=== PATIENT | male | born 1960 | race Caucasian/White ===

== ENCOUNTER 2017-10-17 09:41 | Emergency (ER) | payer MEDICARE, MEDICAID ==
--- NOTE | 2017-10-17 10:16 | EDM.PDOC ---
ED HPI GENERAL MEDICAL PROBLEM - General Chief Complaint: ENT Problem Stated Complaint: SORE THROAT Time Seen by Provider: 10/17/17 10:10 Source of Information: Reports: Patient History Limitations: Reports: No Limitations - History of Present Illness INITIAL COMMENTS - FREE TEXT/NARRATIVE: HISTORY AND PHYSICAL: History of present illness: [Patient comes to the emergency room complaining of earache sore throat runny nose and headache. His symptoms have been present for the past 24 hours. Nasal discharge is clear. He doesn't think he's had a fever. No abdominal pain nausea or vomiting. No constipation or diarrhea. Has had a mild cough with a lot of sputum. No chest pain shortness of breath or difficulty breathing. No dizziness or lightheaded that is new or different for him.] Review of systems: As per history of present illness and below otherwise all systems reviewed and negative. Past medical history: As per history of present illness and as reviewed below otherwise noncontributory. Surgical history: As per history of present illness and as reviewed below otherwise noncontributory. Social history: No reported history of drug or alcohol abuse. Family history: As per history of present illness and as reviewed below otherwise noncontributory. Physical exam: HEENT: Atraumatic, normocephalic. TMs are pearly martinez bilaterally. Oral mucous membranes are pink and moist. Mildly erythematous. No exudate. Neck supple no lymphadenopathy. There is a patent clear discharge present. Lungs: Clear to auscultation, breath sounds equal bilaterally. No wheezing crackles or rales. Heart: S1S2, regular rate and rhythm. Abdomen: Soft, nondistended, nontender. Pelvis: Stable nontender. Genitourinary: Deferred. Rectal: Deferred. Extremities: Atraumatic. Neurovascular unremarkable. Neuro: Awake, alert, oriented. Motor and sensory unremarkable throughout. Exam nonfocal. Developmental delay. Diagnostics: [Influenza swab, strep] Impression: [Viral illness] Plan: [Discussed with patient that symptoms are consistent with a viral illness and that influenza and strep swabs are negative. Recommend push fluids, plenty of rest. Follow-up with PCP. Patient in agreement with today's plan.] Definitive disposition and diagnosis as appropriate pending reevaluation and review of above. - Related Data Allergies Allergy/AdvReac Type Severity Reaction Status Date / Time methylphenidate HCl Allergy Anxiety Verified 10/17/17 10:03 [From Ritalin] thioridazine HCl Allergy Anxiety Verified 10/17/17 10:03 [From Mellaril] Home Meds: Home Meds Benztropine [Cogentin] 2 mg PO BID 02/25/14 [History] Divalproex Sodium [Depakote] 500 mg PO DAILY 02/25/14 [History] Sertraline [Zoloft] 100 mg PO BEDTIME 02/25/14 [History] Ziprasidone HCl [Geodon] 60 mg PO BEDTIME 02/25/14 [History] Ziprasidone HCl [Geodon] 160 mg PO BEDTIME 02/25/14 [History] Divalproex Sodium [Depakote ER] 1,500 mg PO BEDTIME 10/28/14 [History] Multivitamin [Multi Vitamin Daily] 1 each PO DAILY 10/28/14 [History] metFORMIN [Glucophage XR] 500 mg PO WITHDINNER 07/07/16 [History] Past Medical History HEENT History: Reports: Impaired Vision Cardiovascular History: Reports: None Respiratory History: Reports: None Genitourinary History: Reports: None Musculoskeletal History: Reports: None Neurological History: Reports: Speech Problems Psychiatric History: Reports: Anxiety, Bipolar, Schizophrenia Endocrine/Metabolic History: Reports: Diabetes, Type II Hematologic History: Reports: None Immunologic History: Reports: None Oncologic (Cancer) History: Reports: None Dermatologic History: Reports: None - Infectious Disease History Infectious Disease History: Reports: Chicken Pox - Past Surgical History Head Surgeries/Procedures: Reports: None GI Surgical History: Reports: Appendectomy Social & Family History - Family History Family Medical History: Noncontributory - Tobacco Use Smoking Status *Q: Never Smoker Second Hand Smoke Exposure: Yes - Caffeine Use Caffeine Use: Reports: Coffee, Soda - Alcohol Use Days Per Week of Alcohol Use: 0 - Recreational Drug Use Recreational Drug Use: No ED ROS ENT - Review of Systems Review Of Systems: ROS reveals no pertinent complaints other than HPI. ED EXAM, ENT - Physical Exam Exam: See Below Course - Vital Signs Last Recorded V/S: Last Vital Signs Temp 97.7 F 10/17/17 10:06 Pulse 98 10/17/17 10:06 Resp 18 10/17/17 10:06 BP Pulse Ox 94 L 10/17/17 10:06 - Orders/Labs/Meds Orders: Active Orders 24 hr Category Date Time Status CULTURE STREP A CONFIRMATION [RM] Stat Lab 10/17/17 10:15 Results STREP SCRN A RAPID W CULT CONF [RM] Stat Lab 10/17/17 10:15 Results Departure - Departure Time of Disposition: 10:50 Disposition: Home, Self-Care 01 Condition: Good Clinical Impression: Viral illness - Discharge Information Referrals: PCP,Unknown [Primary Care Provider] - David Diop MD [Resident] - Forms: ED Department Discharge Additional Instructions: The following information is given to patients seen in the emergency department who are being discharged to home. This information is to outline your options for follow-up care. We provide all patients seen in our emergency department with a follow-up referral. The need for follow-up, as well as the timing and circumstances, are variable depending upon the specifics of your emergency department visit. If you don't have a primary care physician on staff, we will provide you with a referral. We always advise you to contact your personal physician following an emergency department visit to inform them of the circumstance of the visit and for follow-up with them and/or the need for any referrals to a consulting specialist. The emergency department will also refer you to a specialist when appropriate. This referral assures that you have the opportunity for follow-up care with a specialist. All of these measure are taken in an effort to provide you with optimal care, which includes your follow-up. Under all circumstances we always encourage you to contact your private physician who remains a resource for coordinating your care. When calling for follow-up care, please make the office aware that this follow-up is from your recent emergency room visit. If for any reason you are refused follow-up, please contact the [facility] emergency department at and asked to speak to the emergency department charge nurse. [facility] [address] [place] [id number] Follow-up with her local primary care provider at the clinic listed above in 48- 72 hours. Push fluids, get plenty of rest, Tylenol or ibuprofen as needed for discomfort. Return to ER as needed as discussed - My Orders Last 24 Hours: My Active Orders 10/17/17 10:15 CULTURE STREP A CONFIRMATION [RM] Stat STREP SCRN A RAPID W CULT CONF [] Stat - Assessment/Plan Last 24 Hours: My Active Orders 10/17/17 10:15 CULTURE STREP A CONFIRMATION [RM] Stat STREP SCRN A RAPID W CULT CONF [] Stat
[2017-10-17 11:24] VITALS: BP 124/69
== END 2017-10-17 10:55 | disposition home or self-care (01) ==
LOC: MW.ED 09:41
DX: B34.9 Viral infection, unspecified (principal); E11.9 Type 2 diabetes mellitus without complications; F31.9 Bipolar disorder, unspecified; Z77.22 Contact with and (suspected) exposure to environmental tobacco smoke (acute) (chronic); Z79.899 Other long term (current) drug therapy; Z79.84 Long term (current) use of oral hypoglycemic drugs; Z88.8 Allergy status to other drugs, medicaments and biological substances
CPT/HCPCS: 87081; 87804; 87880; 99283

== ENCOUNTER 2018-11-26 16:19 | Emergency (ER) | payer MEDICAID, MEDICARE ==
--- NOTE | 2018-11-26 16:48 | EDM.PDOC ---
ED HPI GENERAL MEDICAL PROBLEM - General Chief Complaint: Gastrointestinal Problem Stated Complaint: constipated Time Seen by Provider: 11/26/18 16:46 Source of Information: Reports: Patient History Limitations: Reports: No Limitations - History of Present Illness INITIAL COMMENTS - FREE TEXT/NARRATIVE: HISTORY AND PHYSICAL: History of present illness: Patient is a 58-year-old male with history of developmental delay here with complaint of constipation. He states he had a normal bowel movement yesterday but has not been able to go today. He states he used an enema which did not work. He states he has not passed gas today. He has felt a little nauseous but denies fevers, chills, vomiting, diarrhea, abdominal pain or urinary symptoms. After palpating abdomen, patient did have a small bowel movement here. Review of systems: As per history of present illness and below otherwise all systems reviewed and negative. Past medical history: As per history of present illness and as reviewed below otherwise noncontributory. Surgical history: As per history of present illness and as reviewed below otherwise noncontributory. Social history: No reported history of drug or alcohol abuse. Family history: As per history of present illness and as reviewed below otherwise noncontributory. Physical exam: General: Patient sitting comfortably in no acute distress and nontoxic appearing HEENT: Atraumatic, normocephalic, pupils reactive, negative for conjunctival pallor or scleral icterus, mucous membranes moist, throat clear, neck supple, nontender, trachea midline. No meningeal signs. Lungs: Clear to auscultation, breath sounds equal bilaterally, chest nontender. Heart: S1S2, regular, negative for clicks, rubs, or overt murmur. Abdomen: Soft, nondistended, nontender. Negative for masses or hepatosplenomegaly. Negative for costovertebral tenderness. Pelvis: Stable nontender. Genitourinary: Deferred. Rectal: Deferred. Extremities: Atraumatic, negative for cords or calf pain. Neurovascular unremarkable. Neuro: Awake, alert, oriented. Cranial nerves II through XII unremarkable. Cerebellum unremarkable. Motor and sensory unremarkable throughout. Exam nonfocal. Notes: Diagnostics: CBC, CMP, [employer]: Magnesium citrate Prescriptions: Impression: Constipation Plan: 1. Take 1/2 bottle of magnesium citrate when you get home. Take the remaining half tomorrow morning if still no bowel movement. 2. Follow up with primary care provider 3. Return to ED as needed as discussed Definitive disposition and diagnosis as appropriate pending reevaluation and review of above. - Related Data Allergies Allergy/AdvReac Type Severity Reaction Status Date / Time methylphenidate HCl Allergy Anxiety Verified 11/26/18 16:52 [From Ritalin] thioridazine HCl Allergy Anxiety Verified 11/26/18 16:52 [From Mellaril] Home Meds: Home Meds Benztropine [Cogentin] 2 mg PO BID 02/25/14 [History] Divalproex Sodium [Depakote] 500 mg PO DAILY 02/25/14 [History] Sertraline [Zoloft] 100 mg PO BEDTIME 02/25/14 [History] Ziprasidone HCl [Geodon] 60 mg PO BEDTIME 02/25/14 [History] Ziprasidone HCl [Geodon] 160 mg PO BEDTIME 02/25/14 [History] Divalproex Sodium [Depakote ER] 1,500 mg PO BEDTIME 10/28/14 [History] Multivitamin [Multi Vitamin Daily] 1 each PO DAILY 10/28/14 [History] metFORMIN [Glucophage XR] 500 mg PO WITHDINNER 07/07/16 [History] Past Medical History HEENT History: Reports: Impaired Vision Cardiovascular History: Reports: None Respiratory History: Reports: None Genitourinary History: Reports: None Musculoskeletal History: Reports: None Neurological History: Reports: Speech Problems Psychiatric History: Reports: Anxiety, Bipolar, Schizophrenia Endocrine/Metabolic History: Reports: Diabetes, Type II Hematologic History: Reports: None Immunologic History: Reports: None Oncologic (Cancer) History: Reports: None Dermatologic History: Reports: None - Infectious Disease History Infectious Disease History: Reports: Chicken Pox - Past Surgical History Head Surgeries/Procedures: Reports: None GI Surgical History: Reports: Appendectomy Social & Family History - Family History Family Medical History: Noncontributory - Caffeine Use Caffeine Use: Reports: Soda ED ROS GENERAL - Review of Systems Review Of Systems: ROS reveals no pertinent complaints other than HPI. ED EXAM, GI/ABD - Physical Exam Exam: See Below (see dictation) Course - Vital Signs Last Recorded V/S: Last Vital Signs Temp 97.4 F 11/26/18 16:37 Pulse 104 H 11/26/18 16:37 Resp 17 11/26/18 16:37 BP 127/70 11/26/18 16:37 Pulse Ox 95 11/26/18 16:37 - Orders/Labs/Meds Labs: Laboratory Tests 11/26/18 11/26/18 Range/Units 17:18 17:18 WBC 12.47 H (4.0-11.0) K/uL RBC 4.71 (4.50-5.90) M/uL Hgb 14.0 (13.0-17.0) g/dL Hct 41.1 (38.0-50.0) % MCV 87.3 (80.0-98.0) fL MCH 29.7 (27.0-32.0) pg MCHC 34.1 (31.0-37.0) g/dL RDW Std Deviation 43.4 (28.0-62.0) fl RDW Coeff of Ernie 14 (11.0-15.0) % Plt Count 214 (150-400) K/uL MPV 9.50 (7.40-12.00) fL Neut % (Auto) 75.0 (48.0-80.0) % Lymph % (Auto) 16.0 (16.0-40.0) % Mccreary % (Auto) 7.7 (0.0-15.0) % Eos % (Auto) 1.1 (0.0-7.0) % Baso % (Auto) 0.2 (0.0-1.5) % Neut # (Auto) 9.4 H (1.4-5.7) K/uL Lymph # (Auto) 2.0 (0.6-2.4) K/uL Mccreary # (Auto) 1.0 H (0.0-0.8) K/uL Eos # (Auto) 0.1 (0.0-0.7) K/uL Baso # (Auto) 0.0 (0.0-0.1) K/uL Nucleated RBC % 0.0 /100WBC Nucleated RBCs # 0 K/uL Sodium 139 (136-148) mmol/L Potassium 4.1 (3.5-5.1) mmol/L Chloride 106 (98-107) mmol/L Carbon Dioxide 23.0 (21.0-32.0) mmol/L BUN 15 (7.0-18.0) mg/dL Creatinine 1.1 (0.8-1.3) mg/dL Est Cr Clr Drug Dosing 80.71 mL/min Estimated GFR (MDRD) > 60.0 ml/min Glucose 135 H (74-106) mg/dL Calcium 9.1 (8.5-10.1) mg/dL Total Bilirubin 0.6 (0.2-1.0) mg/dL AST 20 (15-37) IU/L ALT 19 (14-63) IU/L Alkaline Phosphatase 124 H (46-116) U/L Total Protein 7.8 (6.4-8.2) g/dL Albumin 3.8 (3.4-5.0) g/dL Globulin 4.0 (2.6-4.0) g/dL Albumin/Globulin Ratio 0.9 (0.9-1.6) Departure - Departure Time of Disposition: 18:45 Disposition: Home, Self-Care 01 Condition: Good Clinical Impression: Constipation - Discharge Information Referrals: Vikas Castaneda MD [Primary Care Provider] - Forms: ED Department Discharge Additional Instructions: The following information is given to patients seen in the emergency department who are being discharged to home. This information is to outline your options for follow-up care. We provide all patients seen in our emergency department with a follow-up referral. The need for follow-up, as well as the timing and circumstances, are variable depending upon the specifics of your emergency department visit. If you don't have a primary care physician on staff, we will provide you with a referral. We always advise you to contact your personal physician following an emergency department visit to inform them of the circumstance of the visit and for follow-up with them and/or the need for any referrals to a consulting specialist. The emergency department will also refer you to a specialist when appropriate. This referral assures that you have the opportunity for follow-up care with a specialist. All of these measure are taken in an effort to provide you with optimal care, which includes your follow-up. Under all circumstances we always encourage you to contact your private physician who remains a resource for coordinating your care. When calling for follow-up care, please make the office aware that this follow-up is from your recent emergency room visit. If for any reason you are refused follow-up, please contact the [facility] Emergency Department at and asked to speak to the emergency department charge nurse. [address] [address] 1. Take 1/2 bottle of magnesium citrate when you get home. Take the remaining half tomorrow morning if still no bowel movement. 2. Follow up with primary care provider 3. Return to ED as needed as discussed
[2018-11-26 16:55] VITALS: BP 127/70
[2018-11-26 17:44] LABS: CHLORIDE,CL 106 mmol/L (98-107); SODIUM,NA 139 mmol/L (136-148)
--- NOTE | 2018-11-26 18:39 | CR ---
Indication: Constipation. Abdominal pain Technique: A single view of the abdomen. Comparison: None Findings/Impression: : A nonobstructive bowel gas pattern. An ovoid density within the central pelvis could be related to the urinary bladder. Probable pelvic vascular calcifications. Degenerative changes in the lumbar spine. Dictated by Gurwinder Badillo MD @ 11/26/2018 6:38:12 PM Dictated by: Gurwinder Badillo MD @ 11/26/2018 18:38:17 (Electronically Signed)
[2018-11-26] MEDS ORDERED: Magnesium Citrate Solution 296 ML Bottle PO ONE (18:43)
== END 2018-11-26 18:56 | disposition home or self-care (01) ==
LOC: MW.ED 16:19
DX: K59.00 Constipation, unspecified (principal); E11.9 Type 2 diabetes mellitus without complications; F41.9 Anxiety disorder, unspecified; F31.9 Bipolar disorder, unspecified; Z79.899 Other long term (current) drug therapy; Z79.84 Long term (current) use of oral hypoglycemic drugs
CPT/HCPCS: 36415; 74018; 80053; 85025; 99283; A9270

== ENCOUNTER 2018-12-12 10:26 | Observation (INO) | payer MEDICARE ==
[2018-12-12] MEDS ORDERED: Sodium Chloride 0.9% 10 ML Syringe FLUSH PRN (10:28)
[2018-12-12] MEDS ORDERED: Sodium Chloride 0.9% 2.5 ML Syringe FLUSH PRN (10:28)
[2018-12-12] MEDS ORDERED: Sodium Chloride 0.9% 1,000 ML IV ONE (10:29)
--- NOTE | 2018-12-12 10:32 | EDM.PDOC ---
ED HPI GENERAL MEDICAL PROBLEM - General Stated Complaint: HEARTATTACK Time Seen by Provider: 12/12/18 10:28 Source of Information: Reports: Patient History Limitations: Reports: No Limitations - History of Present Illness INITIAL COMMENTS - FREE TEXT/NARRATIVE: HISTORY AND PHYSICAL: History of present illness: Patient is a 58-year-old male who presents to the emergency room via EMS with complaints of midsternal chest pain. He states this started approximately one hour prior to calling EMS, he was at [facility]. He denies any diaphoresis, nausea, vomiting, pain that radiates, shortness of breath or cough. Currently states that the chest pain has resolved. He states he feels "strange" feeling like he feels slightly disoriented. He is alert and oriented. EMS was concerned that there may be some ST elevation on the EKG as he was slightly hypotensive with a blood pressure of 90 over 60s. Patient has a past medical history of type 2 diabetes, anxiety and schizophrenia. Review of systems: As per history of present illness and below otherwise all systems reviewed and negative. Past medical history: As per history of present illness and as reviewed below otherwise noncontributory. Surgical history: As per history of present illness and as reviewed below otherwise noncontributory. Social history: See social history for further information Family history: As per history of present illness and as reviewed below otherwise noncontributory. Physical exam: General: Well-developed and well nourished 58-year-old male. He has a normal variance of HEENT: Atraumatic, normocephalic, pupils equal and reactive bilaterally, negative for conjunctival pallor or scleral icterus, mucous membranes moist, TMs normal bilaterally, throat clear, neck supple, nontender, trachea midline. No drooling or trismus noted. No meningeal signs. No hot potato voice noted. Lungs: Clear to auscultation, breath sounds equal bilaterally, chest nontender. Heart: S1S2, regular rate and rhythm without overt murmur Abdomen: Soft, nondistended, obese, nontender. Negative for masses or hepatosplenomegaly. Negative for costovertebral tenderness. Pelvis: Stable nontender. Genitourinary: Deferred. Rectal: Deferred. Skin: Intact, warm, dry. No lesions or rashes noted. Extremities: Atraumatic, negative for cords or calf pain. Neurovascular unremarkable. Neuro: Awake, alert, oriented. Cranial nerves II through XII unremarkable. Cerebellum unremarkable. Motor and sensory unremarkable throughout. Exam nonfocal. Notes: Patient had 325 mg aspirin prior to arrival. Bedside glucose is 102. Patient's blood pressure upon arrival is 119/76. He is pain-free. Only EKG to compare to is from 2016; may have slight change in lead 2. But no other leads. Dr Horn reviewed this EKG as well. Lab work is unremarkable with a negative troponin. Chest x-ray shows no acute findings. Patient continues to be chest pain-free, although does have a mild headache. Will give Toradol for headache. Dr. El was consulted on this patient and he is agreeable to accepting this patient for observation. Patient will be placed on telemetry. Patient is agreeable. There is a home health care social worker from [facility] at the bedside who is aware of his admission as well. Diagnostics: CBC, CMP, Troponin, EKG, Chest xray Therapeutics: Saline lock, IV fluids, Toradol Impression: Chest Pain Rule Out Plan: Observation admission to Med/Surg Definitive disposition and diagnosis as appropriate pending reevaluation and review of above. - Related Data Allergies Allergy/AdvReac Type Severity Reaction Status Date / Time methylphenidate HCl Allergy Anxiety Verified 12/12/18 10:31 [From Ritalin] thioridazine HCl Allergy Anxiety Verified 12/12/18 10:31 [From Mellaril] Home Meds: Home Meds Benztropine [Cogentin] 2 mg PO BID 02/25/14 [History] Divalproex Sodium [Depakote] 500 mg PO DAILY 02/25/14 [History] Sertraline [Zoloft] 100 mg PO BEDTIME 02/25/14 [History] Ziprasidone HCl [Geodon] 60 mg PO BEDTIME 02/25/14 [History] Ziprasidone HCl [Geodon] 160 mg PO BEDTIME 02/25/14 [History] Divalproex Sodium [Depakote ER] 1,500 mg PO BEDTIME 10/28/14 [History] Multivitamin [Multi Vitamin Daily] 1 each PO DAILY 10/28/14 [History] metFORMIN [Glucophage XR] 500 mg PO WITHDINNER 07/07/16 [History] Past Medical History HEENT History: Reports: Impaired Vision Cardiovascular History: Reports: None Respiratory History: Reports: None Genitourinary History: Reports: None Musculoskeletal History: Reports: None Neurological History: Reports: Speech Problems Psychiatric History: Reports: Anxiety, Bipolar, Schizophrenia Endocrine/Metabolic History: Reports: Diabetes, Type II Hematologic History: Reports: None Immunologic History: Reports: None Oncologic (Cancer) History: Reports: None Dermatologic History: Reports: None - Infectious Disease History Infectious Disease History: Reports: Chicken Pox - Past Surgical History Head Surgeries/Procedures: Reports: None GI Surgical History: Reports: Appendectomy Social & Family History - Family History Family Medical History: Noncontributory - Caffeine Use Caffeine Use: Reports: Soda ED ROS GENERAL - Review of Systems Review Of Systems: ROS reveals no pertinent complaints other than HPI. ED EXAM, GENERAL - Physical Exam Exam: See Below (See dictation) Course - Vital Signs Last Recorded V/S: Last Vital Signs Temp 97.5 F 12/12/18 10:29 Pulse 65 12/12/18 11:24 Resp 18 12/12/18 10:29 BP 106/68 12/12/18 11:24 Pulse Ox 97 12/12/18 11:24 - Orders/Labs/Meds Orders: Active Orders 24 hr Category Date Time Status Admission Status [Patient Status] [ADT] Stat ADT 12/12/18 12:20 Active EKG Documentation Completion [RC] STAT Care 12/12/18 10:28 Active Sodium Chloride 0.9% [Saline Flush] Med 12/12/18 10:28 Active 10 ml FLUSH ASDIRECTED PRN Sodium Chloride 0.9% [Saline Flush] Med 12/12/18 10:28 Active 2.5 ml FLUSH ASDIRECTED PRN Saline Lock Insert [OM.PC] Stat Oth 12/12/18 10:28 Ordered Medication Orders Sodium Chloride (Saline Flush) 10 ml FLUSH ASDIRECTED PRN PRN Reason: Keep Vein Open Last Admin: 12/12/18 10:41 Dose: 10 ml Sodium Chloride (Saline Flush) 2.5 ml FLUSH ASDIRECTED PRN PRN Reason: Keep Vein Open Last Admin: 12/12/18 10:41 Dose: 2.5 ml Labs: Laboratory Tests 12/12/18 12/12/18 Range/Units 10:35 10:35 WBC 8.37 (4.0-11.0) K/uL RBC 4.68 (4.50-5.90) M/uL Hgb 13.8 (13.0-17.0) g/dL Hct 41.2 (38.0-50.0) % MCV 88.0 (80.0-98.0) fL MCH 29.5 (27.0-32.0) pg MCHC 33.5 (31.0-37.0) g/dL RDW Std Deviation 44.0 (28.0-62.0) fl RDW Coeff of Ernie 14 (11.0-15.0) % Plt Count 181 (150-400) K/uL MPV 9.30 (7.40-12.00) fL Neut % (Auto) 45.4 L (48.0-80.0) % Lymph % (Auto) 41.9 H (16.0-40.0) % [place] % (Auto) 9.0 (0.0-15.0) % Eos % (Auto) 3.3 (0.0-7.0) % Baso % (Auto) 0.4 (0.0-1.5) % Neut # (Auto) 3.8 (1.4-5.7) K/uL Lymph # (Auto) 3.5 H (0.6-2.4) K/uL [place] # (Auto) 0.8 (0.0-0.8) K/uL Eos # (Auto) 0.3 (0.0-0.7) K/uL Baso # (Auto) 0.0 (0.0-0.1) K/uL Nucleated RBC % 0.0 /100WBC Nucleated RBCs # 0 K/uL Sodium 141 (136-148) mmol/L Potassium 4.2 (3.5-5.1) mmol/L Chloride 107 (98-107) mmol/L Carbon Dioxide 23.0 (21.0-32.0) mmol/L BUN 8 (7.0-18.0) mg/dL Creatinine 1.0 (0.8-1.3) mg/dL Est Cr Clr Drug Dosing TNP Estimated GFR (MDRD) > 60.0 ml/min Glucose 116 H (74-106) mg/dL Calcium 8.8 (8.5-10.1) mg/dL Total Bilirubin 0.5 (0.2-1.0) mg/dL AST 17 (15-37) IU/L ALT 25 (14-63) IU/L Alkaline Phosphatase 91 (46-116) U/L Troponin I < 0.050 (0.000-0.056) ng/mL Total Protein 6.9 (6.4-8.2) g/dL Albumin 3.3 L (3.4-5.0) g/dL Globulin 3.6 (2.6-4.0) g/dL Albumin/Globulin Ratio 0.9 (0.9-1.6) Meds: Medications Generic Name Dose Route Start Last Admin Trade Name Freq PRN Reason Stop Dose Admin Sodium Chloride 10 ml 12/12/18 10:28 12/12/18 10:41 Saline Flush FLUSH 10 ml ASDIRECTED PRN Administration Keep Vein Open Sodium Chloride 2.5 ml 12/12/18 10:28 12/12/18 10:41 Saline Flush FLUSH 2.5 ml ASDIRECTED PRN Administration Keep Vein Open Discontinued Medications Generic Name Dose Route Start Last Admin Trade Name Freq PRN Reason Stop Dose Admin Sodium Chloride 1,000 mls @ 999 mls/hr 12/12/18 10:29 12/12/18 10:41 Normal Saline IV 12/12/18 11:29 999 mls/hr STAT ONE Administration Departure - Departure Time of Disposition: 11:48 Disposition: Refer to Observation Clinical Impression: Chest pain, rule out acute myocardial infarction - My Orders Last 24 Hours: My Active Orders 12/12/18 10:28 EKG Documentation Completion [RC] STAT Sodium Chloride 0.9% [Saline Flush] 10 ml FLUSH ASDIRECTED PRN Sodium Chloride 0.9% [Saline Flush] 2.5 ml FLUSH ASDIRECTED PRN Saline Lock Insert [OM.PC] Stat 12/12/18 12:20 Admission Status [Patient Status] [ADT] Stat - Assessment/Plan Last 24 Hours: My Active Orders 12/12/18 10:28 EKG Documentation Completion [RC] STAT Sodium Chloride 0.9% [Saline Flush] 10 ml FLUSH ASDIRECTED PRN Sodium Chloride 0.9% [Saline Flush] 2.5 ml FLUSH ASDIRECTED PRN Saline Lock Insert [OM.PC] Stat 12/12/18 12:20 Admission Status [Patient Status] [ADT] Stat
[2018-12-12 11:10] LABS: CHLORIDE,CL 107 mmol/L (98-107); SODIUM,NA 141 mmol/L (136-148)
--- NOTE | 2018-12-12 11:23 | CR ---
EXAMINATION: Portable chest radiograph. HISTORY: Chest pain. Comparison: 03/21/2016. FINDINGS: The trachea is midline. Heart is borderline in size for technique. The cardiomediastinal silhouette is within normal limits. No pulmonary infiltrates, effusions or pneumothorax. Defibrillator pad noted. Osseous structures appear unremarkable. IMPRESSION: No acute cardiopulmonary process.
[2018-12-12] MEDS ORDERED: Ketorolac 30 MG/ML SDV IVPUSH ONE (12:32)
[2018-12-12] MEDS ORDERED: Acetaminophen 325 MG Tab PO PRN (12:58)
--- NOTE | 2018-12-12 13:00 | PCM.HP ---
H&P History of Present Illness - General Date of Service: 12/12/18 Admit Problem/Dx: Admission Diagnosis/Problem Admission Diagnosis/Problem Chest pain, rule out acute myocardial infarction Source of Information: Patient History Limitations: Reports: No Limitations - History of Present Illness Initial Comments - Free Text/Narative: This 58 year old male with pmh of schizoaffective disorder, JACOB with CPAP and DM Type 2 presented to the ED via EMS with complaints of midsternal chest pain. He was at [employer] this morning and started complaining of chest pain. He reports the pain as dull and in the L side of his chest, no radiation. he felt slightly lightheaded, no nausea or diaphoresis. He denies abdominal pain or acid reflux. No other concerns. He denies tobacco abuse or alcohol abuse. He has no history of HTN or CAD. In the ED labwork WNL. Troponin negative. EKG negative for acute ST changes. He was given ASA in the ambulance. By the time he arrived to the ED his pain was gone. PCP Dr Castaneda. - Related Data Allergies/Adverse Reactions: Allergies Allergy/AdvReac Type Severity Reaction Status Date / Time methylphenidate HCl Allergy Anxiety Verified 12/12/18 10:31 [From Ritalin] thioridazine HCl Allergy Anxiety Verified 12/12/18 10:31 [From Mellaril] Home Medications: Home Meds Benztropine [Cogentin] 2 mg PO BID 02/25/14 [History] Divalproex Sodium [Depakote] 500 mg PO DAILY 02/25/14 [History] Sertraline [Zoloft] 100 mg PO BEDTIME 02/25/14 [History] Ziprasidone HCl [Geodon] 60 mg PO BEDTIME 02/25/14 [History] Ziprasidone HCl [Geodon] 160 mg PO BEDTIME 02/25/14 [History] Divalproex Sodium [Depakote ER] 1,500 mg PO BEDTIME 10/28/14 [History] Multivitamin [Multi Vitamin Daily] 1 each PO DAILY 10/28/14 [History] metFORMIN [Glucophage XR] 500 mg PO WITHDINNER 07/07/16 [History] Past Medical History HEENT History: Reports: Impaired Vision Cardiovascular History: Reports: None. Denies: Afib, Blood Clots/VTE/DVT, CAD, High Cholesterol, Hypertension, [place] Respiratory History: Reports: Sleep Apnea (with CPAP) Gastrointestinal History: Reports: None. Denies: GERD Genitourinary History: Reports: None. Denies: Chronic Renal Insuffiency Musculoskeletal History: Reports: None Neurological History: Reports: Speech Problems Psychiatric History: Reports: Anxiety, Bipolar, Schizophrenia Endocrine/Metabolic History: Reports: Diabetes, Type II Hematologic History: Reports: None Immunologic History: Reports: None Oncologic (Cancer) History: Reports: None Dermatologic History: Reports: None - Infectious Disease History Infectious Disease History: Reports: Chicken Pox - Past Surgical History Head Surgeries/Procedures: Reports: None GI Surgical History: Reports: Appendectomy Social & Family History - Family History Family Medical History: Noncontributory - Tobacco Use Smoking Status *Q: Never Smoker Second Hand Smoke Exposure: No - Caffeine Use Caffeine Use: Reports: Soda - Alcohol Use Alcohol Use History: No - Recreational Drug Use Recreational Drug Use: No H&P Review of Systems - Review of Systems: Review Of Systems: See Below General: Reports: No Symptoms. Denies: Fever, Chills, Malaise HEENT: Reports: No Symptoms. Denies: Headaches, Sinus Congestion Pulmonary: Reports: No Symptoms. Denies: Shortness of Breath, Cough, Sputum Cardiovascular: Reports: No Symptoms. Denies: Chest Pain, Palpitations, Lightheadedness Gastrointestinal: Reports: No Symptoms. Denies: Abdominal Pain, Black Stool, Bloody Stool, Nausea, Vomiting Genitourinary: Reports: No Symptoms. Denies: Dysuria Musculoskeletal: Reports: No Symptoms Skin: Reports: Erythema Psychiatric: Reports: No Symptoms Neurological: Reports: No Symptoms Hematologic/Lymphatic: Reports: No Symptoms Immunologic: Reports: No Symptoms Exam - Exam Exam: See Below - Vital Signs Vital Signs: Last Vital Signs Temp 97.5 F 12/12/18 10:29 Pulse 68 12/12/18 12:47 Resp 16 12/12/18 12:47 BP 121/68 12/12/18 12:47 Pulse Ox 97 12/12/18 11:24 Weight: 119.5 kg - Exam General: Alert, Oriented, Cooperative HEENT: Conjunctiva Clear, Mucosa Moist & [place], Posterior Pharynx Clear Lungs: Clear to Auscultation, Normal Respiratory Effort Cardiovascular: Regular Rate, Regular Rhythm GI/Abdominal Exam: Normal Bowel Sounds, Soft, Non-Tender, Other (obese abdomen) Extremities: Normal Inspection, Normal Range of Motion, Non-Tender, No Pedal Edema Neuro Extensive - Mental Status: Alert, Oriented x3 Neuro Extensive - Motor, Sensory, Reflexes: CN II-XII Intact - Patient Data Lab Results Last 24 hrs: Laboratory Results - last 24 hr 12/12/18 12/12/18 Range/Units 10:35 10:35 WBC 8.37 (4.0-11.0) K/uL RBC 4.68 (4.50-5.90) M/uL Hgb 13.8 (13.0-17.0) g/dL Hct 41.2 (38.0-50.0) % MCV 88.0 (80.0-98.0) fL MCH 29.5 (27.0-32.0) pg MCHC 33.5 (31.0-37.0) g/dL RDW Std Deviation 44.0 (28.0-62.0) fl RDW Coeff of Ernie 14 (11.0-15.0) % Plt Count 181 (150-400) K/uL MPV 9.30 (7.40-12.00) fL Neut % (Auto) 45.4 L (48.0-80.0) % Lymph % (Auto) 41.9 H (16.0-40.0) % [place] % (Auto) 9.0 (0.0-15.0) % Eos % (Auto) 3.3 (0.0-7.0) % Baso % (Auto) 0.4 (0.0-1.5) % Neut # (Auto) 3.8 (1.4-5.7) K/uL Lymph # (Auto) 3.5 H (0.6-2.4) K/uL [place] # (Auto) 0.8 (0.0-0.8) K/uL Eos # (Auto) 0.3 (0.0-0.7) K/uL Baso # (Auto) 0.0 (0.0-0.1) K/uL Nucleated RBC % 0.0 /100WBC Nucleated RBCs # 0 K/uL Sodium 141 (136-148) mmol/L Potassium 4.2 (3.5-5.1) mmol/L Chloride 107 (98-107) mmol/L Carbon Dioxide 23.0 (21.0-32.0) mmol/L BUN 8 (7.0-18.0) mg/dL Creatinine 1.0 (0.8-1.3) mg/dL Est Cr Clr Drug Dosing TNP Estimated GFR (MDRD) > 60.0 ml/min Glucose 116 H (74-106) mg/dL Calcium 8.8 (8.5-10.1) mg/dL Total Bilirubin 0.5 (0.2-1.0) mg/dL AST 17 (15-37) IU/L ALT 25 (14-63) IU/L Alkaline Phosphatase 91 (46-116) U/L Troponin I < 0.050 (0.000-0.056) ng/mL Total Protein 6.9 (6.4-8.2) g/dL Albumin 3.3 L (3.4-5.0) g/dL Globulin 3.6 (2.6-4.0) g/dL Albumin/Globulin Ratio 0.9 (0.9-1.6) Result Diagrams: 12/12/18 10:35 12/12/18 10:35 EKG INTERPRETATION EKG Date: 12/12/18 Rhythm: NSR Rate (Beats/Min): 70 P-Wave: Present QRS: Normal ST-T: Normal QT: Normal *Q Meaningful Use (ADM) - VTE Risk Assess *Q Each Risk Factor Represents 1 Point: Obesity ( BMI > 25 kg/m2) Total Score 1 Point Risk Factors: 1 Each Risk Factor Represents 2 Points: Age 60 - 74 Years Total Score 2 Point Risk Factors: 2 Each Risk Factor Represents 3 Points: None Total Score 3 Point Risk Factors: 0 Each Risk Factor Represents 5 Points: None Total Score 5 Point Risk Factors: 0 Venous Thromboembolism Risk Factor Score *Q: 3 - Problem List (1) Chest pain, rule out acute myocardial infarction SNOMED Code(s): 77400289 ICD Code: R07.9 - CHEST PAIN, UNSPECIFIED Status: Acute Current Visit: Yes (2) Schizoaffective disorder SNOMED Code(s): 26943386 ICD Code: F25.9 - SCHIZOAFFECTIVE DISORDER, UNSPECIFIED Status: Acute Current Visit: Yes Qualifiers: Schizoaffective disorder type: depressive Qualified Code(s): F25.1 - Schizoaffective disorder, depressive type (3) DM type 2 (diabetes mellitus, type 2) SNOMED Code(s): 15587859 ICD Code: E11.9 - TYPE 2 DIABETES MELLITUS WITHOUT COMPLICATIONS Status: Acute Current Visit: Yes Qualifiers: Diabetes mellitus termite renewal inspector insulin use: without termite renewal inspector use Diabetes mellitus complication status: without complication Qualified Code(s): E11.9 - Type 2 diabetes mellitus without complications Problem List Initiated/Reviewed/Updated: Yes Orders Last 24hrs: Active Orders 24 hr Category Date Time Status Admission Status [Patient Status] [ADT] Stat ADT 12/12/18 12:20 Active Antiembolic Devices [RC] PER UNIT ROUTINE Care 12/12/18 12:59 Active Intake and Output [RC] QSHIFT Care 12/12/18 12:59 Active Oxygen Therapy [RC] PRN Care 12/12/18 12:59 Active Telemetry Monitoring [Cardiac Monitoring] [RC] . Care 12/12/18 12:57 Active DIRECTED Up ad Lois [RC] ASDIRECTED Care 12/12/18 12:58 Active VTE/DVT Education [RC] PER UNIT ROUTINE Care 12/12/18 12:59 Active Vital Signs [RC] Q4H Care 12/12/18 12:59 Active Heart Healthy Diet [DIET] Diet 12/12/18 Lunch Active GLYCOSYLATED HEMOGLOBIN,HGBA1C [CHEM] Routine Lab 12/12/18 12:57 Ordered LIPID PANEL [CHEM] AM Lab 12/13/18 05:11 Ordered TROPONIN I [CHEM] Q6H Lab 12/12/18 16:30 Ordered TROPONIN I [CHEM] Q6H Lab 12/12/18 22:30 Ordered Acetaminophen [Tylenol] Med 12/12/18 12:58 Ordered 650 mg PO Q4H PRN Sodium Chloride 0.9% [Saline Flush] Med 12/12/18 10:28 Active 10 ml FLUSH ASDIRECTED PRN Sodium Chloride 0.9% [Saline Flush] Med 12/12/18 10:28 Active 2.5 ml FLUSH ASDIRECTED PRN Saline Lock Insert [OM.PC] Stat Oth 12/12/18 10:28 Ordered Sequential Compression Device [OM.PC] Per Unit Routine Oth 12/12/18 12:59 Ordered Resuscitation Status Routine Resus Stat 12/12/18 12:58 Ordered Medication Orders Sodium Chloride (Saline Flush) 10 ml FLUSH ASDIRECTED PRN PRN Reason: Keep Vein Open Last Admin: 12/12/18 10:41 Dose: 10 ml Sodium Chloride (Saline Flush) 2.5 ml FLUSH ASDIRECTED PRN PRN Reason: Keep Vein Open Last Admin: 12/12/18 10:41 Dose: 2.5 ml Assessment/Plan Comment:: This 58 year old male admitted with chest pain 1. Chest pain: No further chest pain. Will monitor on telemetry. Trend troponins. Check lipid panel and A1c. 2. Dm Type 2: Monitor BS before meals. Continue Metformin. 3. Schizoaffective disorder: Continue all home medications. VTE prophylaxis: SCDs Dispo: 1 day.
[2018-12-12 13:43] LABS: HEMOGLOBIN A1C 6.4 % (4.5-6.2)
[2018-12-12] MEDS: Insulin Aspart 100 Units/ML 3 ML Pen SUBCUT SCH (16:43)
[2018-12-12] MEDS ORDERED: metFORMIN 500 MG Tab.ER PO SCH (17:30)
[2018-12-12] MEDS: Benztropine 1 MG Tab PO SCH (20:39)
[2018-12-12] MEDS ORDERED: Sertraline 100 MG Tab PO SCH (21:00)
[2018-12-12] MEDS ORDERED: Divalproex Sodium 500 MG Tab.ER PO SCH (21:00)
[2018-12-12] MEDS ORDERED: Ziprasidone HCl 20 MG Cap PO SCH (21:00)
[2018-12-13] MEDS: Insulin Aspart 100 Units/ML 3 ML Pen SUBCUT SCH (07:35)
[2018-12-13 08:12] VITALS: BP 91/55
[2018-12-13] MEDS ORDERED: Multivitamin Tab PO SCH (09:00)
[2018-12-13] MEDS ORDERED: Divalproex Sodium Delayed-Release 500 MG Tab.CR PO SCH (09:00)
[2018-12-13] MEDS ORDERED: Aspirin 81 MG Tab.Chew PO SCH (09:00)
[2018-12-13] MEDS: Benztropine 1 MG Tab PO SCH (09:12)
--- NOTE | 2018-12-13 10:26 | PCM.DCSUM1 ---
Discharge Summary - Hospital Course Brief History: This 58 year old male with pmh of schizoaffective disorder, JACOB with CPAP and DM Type 2 presented to the ED via EMS with complaints of midsternal chest pain. He was at [facility] this morning and started complaining of chest pain. He reports the pain as dull and in the L side of his chest, no radiation. he felt slightly lightheaded, no nausea or diaphoresis. He denies abdominal pain or acid reflux. No other concerns. He denies tobacco abuse or alcohol abuse. He has no history of HTN or CAD. In the ED labwork WNL. Troponin negative. EKG negative for acute ST changes. He was given ASA in the ambulance. By the time he arrived to the ED his pain was gone. PCP Dr Castaneda. Diagnosis: Stroke: No - Discharge Data Discharge Date: 12/13/18 Discharge Disposition: Home, Self-Care 01 Condition: Stable - Discharge Diagnosis/Problem(s) (1) Chest pain, rule out acute myocardial infarction SNOMED Code(s): 62562750 ICD Code: R07.9 - CHEST PAIN, UNSPECIFIED Status: Acute (2) Schizoaffective disorder SNOMED Code(s): 64733097 ICD Code: F25.9 - SCHIZOAFFECTIVE DISORDER, UNSPECIFIED Status: Acute Qualifiers: Schizoaffective disorder type: depressive Qualified Code(s): F25.1 - Schizoaffective disorder, depressive type (3) DM type 2 (diabetes mellitus, type 2) SNOMED Code(s): 84218910 ICD Code: E11.9 - TYPE 2 DIABETES MELLITUS WITHOUT COMPLICATIONS Status: Acute Qualifiers: Diabetes mellitus medical terminologist insulin use: without medical terminologist use Diabetes mellitus complication status: without complication Qualified Code(s): E11.9 - Type 2 diabetes mellitus without complications - Patient Instructions Diet: Heart Healthy Diet, Diabetic Diet Activity: As Tolerated, No Strenuous Activities Driving: Do Not Drive Notify Provider of: Fever, Increased Pain, Swelling and Redness, Drainage, Nausea and/or Vomiting - Discharge Plan *PRESCRIPTION DRUG MONITORING PROGRAM REVIEWED*: Not Applicable *COPY OF PRESCRIPTION DRUG MONITORING REPORT IN PATIENT DARRICK: Not Applicable Home Medications: Home Meds Benztropine [Cogentin] 2 mg PO BID 02/25/14 [History] Divalproex Sodium [Depakote] 500 mg PO DAILY 02/25/14 [History] Sertraline [Zoloft] 100 mg PO BEDTIME 02/25/14 [History] Ziprasidone HCl [Geodon] 60 mg PO BEDTIME 02/25/14 [History] Ziprasidone HCl [Geodon] 160 mg PO BEDTIME 02/25/14 [History] Divalproex Sodium [Depakote ER] 1,500 mg PO BEDTIME 10/28/14 [History] Multivitamin [Multi-Vitamin Daily] 1 each PO DAILY 10/28/14 [History] metFORMIN [Glucophage XR] 500 mg PO WITHDINNER 07/07/16 [History] Oxygen Therapy Mode: Room Air Patient Handouts: Nonspecific Chest Pain, [id number] Referrals: [facility] [Outside] Vikas Castaneda MD [Primary Care Provider] - 12/23/18 8:30 am - Discharge Summary/Plan Comment DC Time >30 min.: No Discharge Summary/Plan Comment: Discharge Diagnoses: Chest pain-resolved DM TYpe 2 Schizoaffective disorder Hakeem was admitted and monitor on telemetry for chest pain. Troponins were trended and negative. No acute ST changes noted on EKG. He was chest pain free throughout stay. ACS ruled out. VS stable. He will be discharged home today on home medications. He is to follow up with PCP in 1 week and to have stress test. He is to return to ED or clinic if concerns should arise. - General Info Date of Service: 12/13/18 Admission Dx/Problem (Free Text: Admission Diagnosis/Problem Admission Diagnosis/Problem Chest pain, rule out acute myocardial infarction Subjective Update: Denies chest pain. Eager to go home today. No other concerns. Functional Status: Reports: Pain Controlled, Tolerating Diet, Ambulating, Urinating - Review of Systems General: Reports: No Symptoms. Denies: Fever, Weakness HEENT: Reports: No Symptoms. Denies: Sore Throat Pulmonary: Reports: No Symptoms. Denies: Shortness of Breath Cardiovascular: Reports: No Symptoms. Denies: Chest Pain Gastrointestinal: Reports: No Symptoms. Denies: Abdominal Pain, Constipation, Nausea, Vomiting Neurological: Reports: No Symptoms Psychiatric: Reports: No Symptoms - Patient Data Vitals - Most Recent: Last Vital Signs Temp 96.9 F 12/13/18 08:00 Pulse 68 12/13/18 08:00 Resp 16 12/13/18 08:00 BP 91/55 L 12/13/18 08:00 Pulse Ox 95 12/13/18 08:00 Weight - Most Recent: 119.5 kg I&O - Last 24 hours: Intake & Output 12/12/18 12/13/18 12/13/18 22:59 06:59 14:59 Intake Total 500 700 Output Total 700 400 Balance -200 300 Lab Results - Last 24 hrs: Laboratory Results - last 24 hr 12/12/18 12/12/18 12/12/18 Range/Units 10:35 10:35 10:35 WBC 8.37 (4.0-11.0) K/uL RBC 4.68 (4.50-5.90) M/uL Hgb 13.8 (13.0-17.0) g/dL Hct 41.2 (38.0-50.0) % MCV 88.0 (80.0-98.0) fL MCH 29.5 (27.0-32.0) pg MCHC 33.5 (31.0-37.0) g/dL RDW Std Deviation 44.0 (28.0-62.0) fl RDW Coeff of Ernie 14 (11.0-15.0) % Plt Count 181 (150-400) K/uL MPV 9.30 (7.40-12.00) fL Neut % (Auto) 45.4 L (48.0-80.0) % Lymph % (Auto) 41.9 H (16.0-40.0) % Preble % (Auto) 9.0 (0.0-15.0) % Eos % (Auto) 3.3 (0.0-7.0) % Baso % (Auto) 0.4 (0.0-1.5) % Neut # (Auto) 3.8 (1.4-5.7) K/uL Lymph # (Auto) 3.5 H (0.6-2.4) K/uL Preble # (Auto) 0.8 (0.0-0.8) K/uL Eos # (Auto) 0.3 (0.0-0.7) K/uL Baso # (Auto) 0.0 (0.0-0.1) K/uL Nucleated RBC % 0.0 /100WBC Nucleated RBCs # 0 K/uL Sodium 141 (136-148) mmol/L Potassium 4.2 (3.5-5.1) mmol/L Chloride 107 (98-107) mmol/L Carbon Dioxide 23.0 (21.0-32.0) mmol/L BUN 8 (7.0-18.0) mg/dL Creatinine 1.0 (0.8-1.3) mg/dL Est Cr Clr Drug Dosing TNP Estimated GFR (MDRD) > 60.0 ml/min Glucose 116 H (74-106) mg/dL POC Glucose (60-110) mg/dL Hemoglobin A1c 6.4 H (4.5-6.2) % Calcium 8.8 (8.5-10.1) mg/dL Total Bilirubin 0.5 (0.2-1.0) mg/dL AST 17 (15-37) IU/L ALT 25 (14-63) IU/L Alkaline Phosphatase 91 (46-116) U/L Troponin I < 0.050 (0.000-0.056) ng/mL Total Protein 6.9 (6.4-8.2) g/dL Albumin 3.3 L (3.4-5.0) g/dL Globulin 3.6 (2.6-4.0) g/dL Albumin/Globulin Ratio 0.9 (0.9-1.6) Triglycerides (0-200) mg/dL Cholesterol (50-200) mg/dL LDL Cholesterol, Calc (60-180) mg/dL VLDL Cholesterol (5-55) mg/dL HDL Cholesterol (40-60) mg/dL Cholesterol/HDL Ratio (3.3-6.0) 12/12/18 12/12/18 12/12/18 Range/Units 16:33 16:34 22:18 WBC (4.0-11.0) K/uL RBC (4.50-5.90) M/uL Hgb (13.0-17.0) g/dL Hct (38.0-50.0) % MCV (80.0-98.0) fL MCH (27.0-32.0) pg MCHC (31.0-37.0) g/dL RDW Std Deviation (28.0-62.0) fl RDW Coeff of Ernie (11.0-15.0) % Plt Count (150-400) K/uL MPV (7.40-12.00) fL Neut % (Auto) (48.0-80.0) % Lymph % (Auto) (16.0-40.0) % Preble % (Auto) (0.0-15.0) % Eos % (Auto) (0.0-7.0) % Baso % (Auto) (0.0-1.5) % Neut # (Auto) (1.4-5.7) K/uL Lymph # (Auto) (0.6-2.4) K/uL Preble # (Auto) (0.0-0.8) K/uL Eos # (Auto) (0.0-0.7) K/uL Baso # (Auto) (0.0-0.1) K/uL Nucleated RBC % /100WBC Nucleated RBCs # K/uL Sodium (136-148) mmol/L Potassium (3.5-5.1) mmol/L Chloride (98-107) mmol/L Carbon Dioxide (21.0-32.0) mmol/L BUN (7.0-18.0) mg/dL Creatinine (0.8-1.3) mg/dL Est Cr Clr Drug Dosing Estimated GFR (MDRD) ml/min Glucose (74-106) mg/dL POC Glucose 112 H (60-110) mg/dL Hemoglobin A1c (4.5-6.2) % Calcium (8.5-10.1) mg/dL Total Bilirubin (0.2-1.0) mg/dL AST (15-37) IU/L ALT (14-63) IU/L Alkaline Phosphatase (46-116) U/L Troponin I < 0.050 < 0.050 (0.000-0.056) ng/mL Total Protein (6.4-8.2) g/dL Albumin (3.4-5.0) g/dL Globulin (2.6-4.0) g/dL Albumin/Globulin Ratio (0.9-1.6) Triglycerides (0-200) mg/dL Cholesterol (50-200) mg/dL LDL Cholesterol, Calc (60-180) mg/dL VLDL Cholesterol (5-55) mg/dL HDL Cholesterol (40-60) mg/dL Cholesterol/HDL Ratio (3.3-6.0) 12/13/18 12/13/18 Range/Units 04:43 06:35 WBC (4.0-11.0) K/uL RBC (4.50-5.90) M/uL Hgb (13.0-17.0) g/dL Hct (38.0-50.0) % MCV (80.0-98.0) fL MCH (27.0-32.0) pg MCHC (31.0-37.0) g/dL RDW Std Deviation (28.0-62.0) fl RDW Coeff of Ernie (11.0-15.0) % Plt Count (150-400) K/uL MPV (7.40-12.00) fL Neut % (Auto) (48.0-80.0) % Lymph % (Auto) (16.0-40.0) % Preble % (Auto) (0.0-15.0) % Eos % (Auto) (0.0-7.0) % Baso % (Auto) (0.0-1.5) % Neut # (Auto) (1.4-5.7) K/uL Lymph # (Auto) (0.6-2.4) K/uL Preble # (Auto) (0.0-0.8) K/uL Eos # (Auto) (0.0-0.7) K/uL Baso # (Auto) (0.0-0.1) K/uL Nucleated RBC % /100WBC Nucleated RBCs # K/uL Sodium (136-148) mmol/L Potassium (3.5-5.1) mmol/L Chloride (98-107) mmol/L Carbon Dioxide (21.0-32.0) mmol/L BUN (7.0-18.0) mg/dL Creatinine (0.8-1.3) mg/dL Est Cr Clr Drug Dosing Estimated GFR (MDRD) ml/min Glucose (74-106) mg/dL POC Glucose 91 (60-110) mg/dL Hemoglobin A1c (4.5-6.2) % Calcium (8.5-10.1) mg/dL Total Bilirubin (0.2-1.0) mg/dL AST (15-37) IU/L ALT (14-63) IU/L Alkaline Phosphatase (46-116) U/L Troponin I (0.000-0.056) ng/mL Total Protein (6.4-8.2) g/dL Albumin (3.4-5.0) g/dL Globulin (2.6-4.0) g/dL Albumin/Globulin Ratio (0.9-1.6) Triglycerides 181 (0-200) mg/dL Cholesterol 114 (50-200) mg/dL LDL Cholesterol, Calc 43 L (60-180) mg/dL VLDL Cholesterol 36 (5-55) mg/dL HDL Cholesterol 35 L (40-60) mg/dL Cholesterol/HDL Ratio 3.3 (3.3-6.0) Med Orders - Current: Current Medications Acetaminophen (Tylenol) 650 mg PO Q4H PRN PRN Reason: Pain (mild 1-3) Last Admin: 12/12/18 21:07 Dose: 650 mg Aspirin (Aspirin) 81 mg PO DAILY REPLACED BY [facility] Last Admin: 12/13/18 09:12 Dose: 81 mg Benztropine Mesylate (Cogentin) 2 mg PO BID REPLACED BY [facility] Last Admin: 12/13/18 09:12 Dose: 2 mg Divalproex Sodium (Depakote) 500 mg PO DAILY REPLACED BY [facility] Last Admin: 12/13/18 09:12 Dose: 500 mg Divalproex Sodium (Depakote Er) 1,500 mg PO BEDTIME REPLACED BY [facility] Last Admin: 12/12/18 20:40 Dose: 1,500 mg Insulin Aspart (Novolog) [facility] Protocol Last Admin: 12/13/18 07:35 Dose: Not Given Metformin HCl (Glucophage Xr) 500 mg PO WITHDINNER REPLACED BY [facility] Last Admin: 12/12/18 17:27 Dose: 500 mg Multivitamins/Minerals/Vitamin C (Tab-A-Víctor) 1 tab PO DAILY REPLACED BY [facility] Last Admin: 12/13/18 09:12 Dose: 1 tab Sertraline HCl (Zoloft) 100 mg PO BEDTIME REPLACED BY [facility] Last Admin: 12/12/18 20:38 Dose: 100 mg Sodium Chloride (Saline Flush) 10 ml FLUSH ASDIRECTED PRN PRN Reason: Keep Vein Open Last Admin: 12/12/18 10:41 Dose: 10 ml Sodium Chloride (Saline Flush) 2.5 ml FLUSH ASDIRECTED PRN PRN Reason: Keep Vein Open Last Admin: 12/12/18 10:41 Dose: 2.5 ml Ziprasidone (Geodon) 60 mg PO BEDTIME [facility] Last Admin: 12/12/18 20:38 Dose: 60 mg Discontinued Medications Sodium Chloride (Normal Saline) 1,000 mls @ 999 mls/hr IV STAT ONE Stop: 12/12/18 11:29 Last Admin: 12/12/18 10:41 Dose: 999 mls/hr Ketorolac Tromethamine (Toradol) 30 mg IVPUSH ONETIME ONE Stop: 12/12/18 12:33 Last Admin: 12/12/18 12:44 Dose: 30 mg - Exam General: Reports: Alert, Oriented, Cooperative, No Acute Distress Lungs: Reports: Clear to Auscultation, Normal Respiratory Effort Cardiovascular: Reports: Regular Rate, Regular Rhythm, No Murmurs GI/Abdominal Exam: Normal Bowel Sounds, Soft, Non-Tender Neurological: Reports: No New Focal Deficit Psy/Mental Status: Reports: Alert, Normal Affect, Normal Mood
== END 2018-12-13 11:08 | disposition home or self-care (01) ==
LOC: MW.ED 10:26 → MW.MS 12:22
PROVIDERS: ADMIT Internal Medicine; ATTEND Internal Medicine
DX: R07.2 Precordial pain (principal); F25.1 Schizoaffective disorder, depressive type; E11.9 Type 2 diabetes mellitus without complications; Z79.899 Other long term (current) drug therapy; Z79.84 Long term (current) use of oral hypoglycemic drugs; G47.33 Obstructive sleep apnea (adult) (pediatric); Z99.89 Dependence on other enabling machines and devices
CPT/HCPCS: 36415; 71045; 80053; 80061; 82962; 83036; 84484; 85025; 96361; 96374; 99285; A9270; J1885; J7040; 99282; G0378

== ENCOUNTER 2019-01-08 20:42 | Emergency (ER) | payer MEDICARE, MEDICAID ==
[2019-01-08 21:09] VITALS: BP 130/64
--- NOTE | 2019-01-08 21:42 | EDM.PDOC ---
ED HPI GENERAL MEDICAL PROBLEM - General Chief Complaint: Gastrointestinal Problem Stated Complaint: CONSTIPATION Time Seen by Provider: 01/08/19 21:21 Source of Information: Reports: Patient History Limitations: Reports: No Limitations - History of Present Illness INITIAL COMMENTS - FREE TEXT/NARRATIVE: HISTORY AND PHYSICAL: History of present illness: Patient is a 58-year-old male presents to the ED today with concern for constipation. Patient states he has the sensation that he needs to have a bowel movement, but is unable to. He states his last bowel movement was yesterday and was normal for him. Patient states he has been able to pass gas without difficulty. He has not taken any OTC medications for his symptoms. Patient states he has a history of constipation and on several occasions has come in to get treated for constipation. Patient denies fever, chills, chest pain, shortness of breath, or cough. Denies headache, neck stiff ness, change in vision, syncope, or near syncope. Denies nausea, vomiting, abdominal pain or dysuria. Has not noted any blood in urine or stool. Patient has been eating and drinking appropriately. Patient has a history of diabetes, and schizoaffective disorder. Review of systems: As per history of present illness and below otherwise all systems reviewed and negative. Past medical history: As per history of present illness and as reviewed below otherwise noncontributory. Surgical history: As per history of present illness and as reviewed below otherwise noncontributory. Social history: See social history for further information Family history: As per history of present illness and as reviewed below otherwise noncontributory. Physical exam: General: Patient is alert, oriented, and in no acute distress. Patient sitting comfortably on exam table. HEENT: Atraumatic, normocephalic, pupils equal and reactive bilaterally, negative for conjunctival pallor or scleral icterus, mucous membranes moist, TMs normal bilaterally, throat clear, neck supple, nontender, trachea midline. No drooling or trismus noted. No meningeal signs. No hot potato voice noted. Lungs: Clear to auscultation, breath sounds equal bilaterally, chest nontender. Heart: S1S2, regular rate and rhythm without overt murmur Abdomen: Obese, soft, nondistended, nontender. Positive bowel sounds are all quadrants. Negative for masses or hepatosplenomegaly. Negative for costovertebral tenderness. Pelvis: Stable nontender. Genitourinary: Deferred. Rectal: Deferred. Skin: Intact, warm, dry. No lesions or rashes noted. Extremities: Atraumatic, negative for cords or calf pain. Neurovascular unremarkable. Neuro: Awake, alert, oriented. Cranial nerves II through XII unremarkable. Cerebellum unremarkable. Motor and sensory unremarkable throughout. Exam nonfocal. Notes: Patient declines lab work today and only requests having an x-ray imaging to check for constipation. Will treat for constipation. Supportive care measures were reviewed and discussed. Voices understanding and is agreeable to plan of care. Denies any further questions or concerns at this time. Diagnostics: Abdominal xray Therapeutics: Milk of Magnesia Prescription: None Impression: Constipation Plan: 1. You can black pickler Magnesium Citrate as well and drink 1/2 bottle tonight and if no results, another 1/2 bottle in the morning. 2. You can use [id number] stool softeners and MiraLAX to help maintain bowel movements on a daily basis. 3. Follow up with your primary care provider as discussed. 4. Return to the ED as needed and as discussed. Definitive disposition and diagnosis as appropriate pending reevaluation and review of above. Abdomen Pain Score (Numeric/FACES): 4 - Related Data Allergies Allergy/AdvReac Type Severity Reaction Status Date / Time methylphenidate HCl Allergy Anxiety Verified 01/08/19 21:09 [From Ritalin] thioridazine HCl Allergy Anxiety Verified 01/08/19 21:09 [From Mellaril] Home Meds: Home Meds Benztropine [Cogentin] 2 mg PO BID 02/25/14 [History] Divalproex Sodium [Depakote] 500 mg PO DAILY 02/25/14 [History] Sertraline [Zoloft] 100 mg PO BEDTIME 02/25/14 [History] Ziprasidone HCl [Geodon] 60 mg PO BEDTIME 02/25/14 [History] Ziprasidone HCl [Geodon] 160 mg PO BEDTIME 02/25/14 [History] Divalproex Sodium [Depakote ER] 1,500 mg PO BEDTIME 10/28/14 [History] metFORMIN [Glucophage XR] 500 mg PO WITHDINNER 07/07/16 [History] Past Medical History HEENT History: Reports: Impaired Vision Cardiovascular History: Reports: Heart Murmur Respiratory History: Reports: Sleep Apnea Gastrointestinal History: Reports: None. Denies: GERD Genitourinary History: Reports: None Musculoskeletal History: Reports: None Neurological History: Reports: Speech Problems Psychiatric History: Reports: Anxiety, Bipolar, Schizophrenia Endocrine/Metabolic History: Reports: Diabetes, Type II Hematologic History: Reports: None Immunologic History: Reports: None Oncologic (Cancer) History: Reports: None Dermatologic History: Reports: None - Infectious Disease History Infectious Disease History: Reports: Chicken Pox - Past Surgical History Head Surgeries/Procedures: Reports: None GI Surgical History: Reports: Appendectomy Social & Family History - Family History Family Medical History: Noncontributory - Tobacco Use Smoking Status *Q: Never Smoker - Caffeine Use Caffeine Use: Reports: Soda - Recreational Drug Use Recreational Drug Use: No ED ROS GENERAL - Review of Systems Review Of Systems: ROS reveals no pertinent complaints other than HPI. ED EXAM, GI/ABD - Physical Exam Exam: See Below (see dictation) Course - Vital Signs Last Recorded V/S: Last Vital Signs Temp 36.4 C 01/08/19 21:07 Pulse 79 01/08/19 21:07 Resp BP 130/64 01/08/19 21:07 Pulse Ox 94 L 01/08/19 21:07 - Orders/Labs/Meds Orders: Active Orders 24 hr Category Date Time Status Abdomen 1V Upright [CR] Stat Exams 01/08/19 21:39 Taken Meds: Medications Discontinued Medications Generic Name Dose Route Start Last Admin Trade Name Edmarq PRN Reason Stop Dose Admin Magnesium Hydroxide 30 ml 01/08/19 22:14 01/08/19 22:24 Milk Of Magnesia PO 01/08/19 22:15 30 ml ONETIME ONE Administration Departure - Departure Time of Disposition: 22:24 Disposition: Home, Self-Care 01 Clinical Impression: Constipation Qualifiers: Constipation type: unspecified constipation type Qualified Code(s): K59.00 - Constipation, unspecified - Discharge Information Instructions: Constipation, Adult, [id number] Referrals: PCP,None [Primary Care Provider] - Forms: ED Department Discharge Additional Instructions: The following information is given to patients seen in the emergency department who are being discharged to home. This information is to outline your options for follow-up care. We provide all patients seen in our emergency department with a follow-up referral. The need for follow-up, as well as the timing and circumstances, are variable depending upon the specifics of your emergency department visit. If you don't have a primary care physician on staff, we will provide you with a referral. We always advise you to contact your personal physician following an emergency department visit to inform them of the circumstance of the visit and for follow-up with them and/or the need for any referrals to a consulting specialist. The emergency department will also refer you to a specialist when appropriate. This referral assures that you have the opportunity for follow-up care with a specialist. All of these measure are taken in an effort to provide you with optimal care, which includes your follow-up. Under all circumstances we always encourage you to contact your private physician who remains a resource for coordinating your care. When calling for follow-up care, please make the office aware that this follow-up is from your recent emergency room visit. If for any reason you are refused follow-up, please contact the [facility] Emergency Department at and asked to speak to the emergency department charge nurse. [facility] [address] [place] [address] [place] [address] 1. You can black pickler Magnesium Citrate as well and drink 1/2 bottle tonight and if no results, another 1/2 bottle in the morning. 2. You can use [id number] stool softeners and MiraLAX to help maintain bowel movements on a daily basis. 3. Follow up with your primary care provider as discussed. 4. Return to the ED as needed and as discussed. - My Orders Last 24 Hours: My Active Orders 01/08/19 21:39 Abdomen 1V Upright [CR] Stat - Assessment/Plan Last 24 Hours: My Active Orders 01/08/19 21:39 Abdomen 1V Upright [CR] Stat
[2019-01-08] MEDS ORDERED: Magnesium Hydroxide 400 MG/5 ML Susp 30 ML Cup PO ONE (22:14)
--- NOTE | 2019-01-08 22:37 | CR ---
Indication: Constipation Technique: Abdomen 1 view Comparison: November 26, 2018 Findings/Impression: A single very limited view of the abdomen demonstrates no significant colonic stool. There is a paucity of air in the GI tract which limits assessment for distention. An oval-shaped opacity is in the central abdomen, this is indeterminate. No other specific abnormality evident. Dictated by Alexander Early MD @ Jan 08 2019 10:35PM Signed by Dr. Alexander Early @ Jan 08 2019 10:36PM
== END 2019-01-08 22:37 | disposition home or self-care (01) ==
LOC: MW.ED 20:42
DX: K59.00 Constipation, unspecified (principal); F41.9 Anxiety disorder, unspecified; F31.9 Bipolar disorder, unspecified; E11.9 Type 2 diabetes mellitus without complications; Z79.84 Long term (current) use of oral hypoglycemic drugs; Z88.8 Allergy status to other drugs, medicaments and biological substances; Z79.899 Other long term (current) drug therapy
CPT/HCPCS: 74018; 99284; A9270

== ENCOUNTER 2019-01-28 13:03 | Emergency (ER) | payer MEDICAID, MEDICARE ==
--- NOTE | 2019-01-28 13:12 | EDM.PDOC ---
ED HPI GENERAL MEDICAL PROBLEM - General Chief Complaint: Respiratory Problem Stated Complaint: SORE THROAT Time Seen by Provider: 01/28/19 13:12 Source of Information: Reports: Patient - History of Present Illness INITIAL COMMENTS - FREE TEXT/NARRATIVE: HISTORY AND PHYSICAL: History of present illness: [A shunt presents with sore throat since this morning no fever nausea vomiting chills sweats no muffled voice or trismus no drooling she has also coughed once today ] Review of systems: As per history of present illness and below otherwise all systems reviewed and negative. Past medical history: As per history of present illness and as reviewed below otherwise noncontributory. Surgical history: As per history of present illness and as reviewed below otherwise noncontributory. Social history: No reported history of drug or alcohol abuse. Family history: As per history of present illness and as reviewed below otherwise noncontributory. Physical exam: HEENT: Atraumatic, normocephalic, pupils reactive, negative for conjunctival pallor or scleral icterus, mucous membranes moist, throat clear, neck supple, nontender, trachea midline. Tympanic membrane on the right reddened with slight bulge left is slightly injected moderate erythema no exudates Lungs: Clear to auscultation, breath sounds equal bilaterally, chest nontender. Heart: S1S2, regular, negative for clicks, rubs, or JVD. Abdomen: Soft, nondistended, nontender. Negative for masses or hepatosplenomegaly. Negative for costovertebral tenderness. Pelvis: Stable nontender. Genitourinary: Deferred. Rectal: Deferred. Extremities: Atraumatic, negative for cords or calf pain. Neurovascular unremarkable. Neuro: Awake, alert, oriented. Cranial nerves II through XII unremarkable. Cerebellum unremarkable. Motor and sensory unremarkable throughout. Exam nonfocal. Diagnostics: [Strep ] Therapeutics: [Amoxicillin ] Impression: [ pharyngitis Otitis media on the right ] Definitive disposition and diagnosis as appropriate pending reevaluation and review of above. throat Pain Score (Numeric/FACES): 4 - Related Data Allergies Allergy/AdvReac Type Severity Reaction Status Date / Time methylphenidate HCl Allergy Anxiety Verified 01/08/19 21:09 [From Ritalin] thioridazine HCl Allergy Anxiety Verified 01/08/19 21:09 [From Mellaril] Home Meds: Home Meds Benztropine [Cogentin] 2 mg PO BID 02/25/14 [History] Divalproex Sodium [Depakote] 500 mg PO DAILY 02/25/14 [History] Sertraline [Zoloft] 100 mg PO BEDTIME 02/25/14 [History] Ziprasidone HCl [Geodon] 60 mg PO BEDTIME 02/25/14 [History] Ziprasidone HCl [Geodon] 160 mg PO BEDTIME 02/25/14 [History] Divalproex Sodium [Depakote ER] 1,500 mg PO BEDTIME 10/28/14 [History] metFORMIN [Glucophage XR] 500 mg PO WITHDINNER 07/07/16 [History] Past Medical History HEENT History: Reports: Impaired Vision Cardiovascular History: Reports: Heart Murmur Respiratory History: Reports: Sleep Apnea Gastrointestinal History: Reports: None. Denies: GERD Genitourinary History: Reports: None Musculoskeletal History: Reports: None Neurological History: Reports: Speech Problems Psychiatric History: Reports: Anxiety, Bipolar, Schizophrenia Endocrine/Metabolic History: Reports: Diabetes, Type II Hematologic History: Reports: None Immunologic History: Reports: None Oncologic (Cancer) History: Reports: None Dermatologic History: Reports: None - Infectious Disease History Infectious Disease History: Reports: Chicken Pox - Past Surgical History Head Surgeries/Procedures: Reports: None GI Surgical History: Reports: Appendectomy Social & Family History - Family History Family Medical History: Noncontributory - Caffeine Use Caffeine Use: Reports: Soda ED ROS GENERAL - Review of Systems Review Of Systems: See Below ED EXAM, GENERAL - Physical Exam Exam: See Below Course - Vital Signs Last Recorded V/S: Last Vital Signs Temp 97.1 F 01/28/19 13:17 Pulse 75 01/28/19 13:17 Resp 18 01/28/19 13:17 BP 99/72 01/28/19 13:17 Pulse Ox 95 01/28/19 13:17 Departure - Departure Time of Disposition: 13:42 Disposition: Home, Self-Care 01 Condition: Good Clinical Impression: Pharyngitis, Otitis media - Discharge Information Referrals: PCP,Unknown [Primary Care Provider] - Forms: ED Department Discharge Additional Instructions: The following information is given to patients seen in the emergency department who are being discharged to home. This information is to outline your options for follow-up care. We provide all patients seen in our emergency department with a follow-up referral. The need for follow-up, as well as the timing and circumstances, are variable depending upon the specifics of your emergency department visit. If you don't have a primary care physician on staff, we will provide you with a referral. We always advise you to contact your personal physician following an emergency department visit to inform them of the circumstance of the visit and for follow-up with them and/or the need for any referrals to a consulting specialist. The emergency department will also refer you to a specialist when appropriate. This referral assures that you have the opportunity for follow-up care with a specialist. All of these measure are taken in an effort to provide you with optimal care, which includes your follow-up. Under all circumstances we always encourage you to contact your private physician who remains a resource for coordinating your care. When calling for follow-up care, please make the office aware that this follow-up is from your recent emergency room visit. If for any reason you are refused follow-up, please contact the [facility] emergency department at and asked to speak to the emergency department charge nurse.
[2019-01-28 13:20] VITALS: BP 99/72
== END 2019-01-28 14:10 | disposition home or self-care (01) ==
LOC: MW.ED 13:03
DX: J02.9 Acute pharyngitis, unspecified (principal); H66.91 Otitis media, unspecified, right ear; E11.9 Type 2 diabetes mellitus without complications; F41.9 Anxiety disorder, unspecified; Z88.8 Allergy status to other drugs, medicaments and biological substances; Z79.84 Long term (current) use of oral hypoglycemic drugs; Z79.899 Other long term (current) drug therapy; Z90.49 Acquired absence of other specified parts of digestive tract
CPT/HCPCS: 87081; 87880-QW; 99283

== ENCOUNTER 2019-02-05 09:51 | Emergency (ER) | payer MEDICARE ==
[2019-02-05] MEDS ORDERED: Ketorolac 60 MG/2 ML SDV IM ONE (10:25)
[2019-02-05 10:34] VITALS: BP 82/56
--- NOTE | 2019-02-05 10:38 | EDM.PDOC ---
ED HPI GENERAL MEDICAL PROBLEM - General Chief Complaint: Neck Problem Stated Complaint: SPOKE TO NURSE Time Seen by Provider: 02/05/19 10:06 Source of Information: Reports: Patient History Limitations: Reports: No Limitations - History of Present Illness INITIAL COMMENTS - FREE TEXT/NARRATIVE: HISTORY AND PHYSICAL: History of present illness: Patient is a 58-year-old male presents to the ED today with concern of neck pain off and on for 2 weeks. Patient states he feels as if he's been sleeping incorrectly and feels as if the muscles are tightening up. Patient states he's taken Advil without relief of symptoms. Patient states it hurts to move his neck in any direction. Patient rates his pain an 8 out of 10. Patient denies any injury or trauma to the neck. Patient denies any other prior injury to the neck. Patient denies fever, chills, chest pain, shortness of breath, or cough. Denies headache, neck stiff ness, change in vision, syncope, or near syncope. Denies nausea, vomiting, abdominal pain, diarrhea, constipation, or dysuria. Has not noted any blood in urine or stool. Patient has been eating and drinking appropriately. Review of systems: As per history of present illness and below otherwise all systems reviewed and negative. Past medical history: As per history of present illness and as reviewed below otherwise noncontributory. Surgical history: As per history of present illness and as reviewed below otherwise noncontributory. Social history: See social history for further information Family history: As per history of present illness and as reviewed below otherwise noncontributory. Physical exam: General: Patient is alert, oriented, and in no acute distress. Patient sitting comfortably on exam table. HEENT: Atraumatic, normocephalic, pupils equal and reactive bilaterally, negative for conjunctival pallor or scleral icterus, mucous membranes moist, TMs normal bilaterally, throat clear, neck supple, nontender, trachea midline. No drooling or trismus noted. No meningeal signs. No hot potato voice noted. Lungs: Clear to auscultation, breath sounds equal bilaterally, chest nontender. Heart: S1S2, regular rate and rhythm without overt murmur Abdomen: Soft, nondistended, nontender. Negative for masses or hepatosplenomegaly. Negative for costovertebral tenderness. Pelvis: Stable nontender. Genitourinary: Deferred. Rectal: Deferred. Skin: Intact, warm, dry. No lesions or rashes noted. Extremities/musculoskeletal: Atraumatic, negative for cords or calf pain. Neurovascular unremarkable. Negative pain to palpation of the spinous process of complete spine. Patient does have moderate pain to palpation of the surrounding trapezius muscle of the cervical spine. Patient does have range of motion of the cervical spine but is somewhat limited due to pain. Negative Kernig and Brudzinski sign. Neuro: Awake, alert, oriented. Cranial nerves II through XII unremarkable. Cerebellum unremarkable. Motor and sensory unremarkable throughout. Exam nonfocal. Notes: Discussed the importance for follow-up with the primary care provider. Voices understanding and is agreeable to plan of care. Denies any further questions or concerns at this time. Diagnostics: Cervical spine x-ray Therapeutics: Toradol, Norflex Prescription: Diclofenac, Flexeril Impression: Neck spasms/pain Plan: 1. Take medication as prescribed. You can also use Tylenol as directed for pain and discomfort. 2. Apply ice and/or heat to your neck 15 minutes on 15 minutes off for pain relief. 3. Follow up with her primary care provider as discussed. 4. Return to the ED as needed and as discussed. Definitive disposition and diagnosis as appropriate pending reevaluation and review of above. neck Pain Score (Numeric/FACES): 6 - Related Data Allergies Allergy/AdvReac Type Severity Reaction Status Date / Time methylphenidate HCl Allergy Anxiety Verified 02/05/19 10:10 [From Ritalin] thioridazine HCl Allergy Anxiety Verified 02/05/19 10:10 [From Mellaril] Home Meds: Home Meds Benztropine [Cogentin] 2 mg PO BID 02/25/14 [History] Divalproex Sodium [Depakote] 500 mg PO DAILY 02/25/14 [History] Sertraline [Zoloft] 100 mg PO BEDTIME 02/25/14 [History] Ziprasidone HCl [Geodon] 60 mg PO BEDTIME 02/25/14 [History] Ziprasidone HCl [Geodon] 160 mg PO BEDTIME 02/25/14 [History] Divalproex Sodium [Depakote ER] 1,500 mg PO BEDTIME 10/28/14 [History] metFORMIN [Glucophage XR] 500 mg PO WITHDINNER 07/07/16 [History] Cyclobenzaprine [Flexeril] 10 mg PO BID PRN #8 tab 02/05/19 [Rx] Diclofenac Sodium [Voltaren] 75 mg PO BIDMEALS PRN #10 tab.cr 02/05/19 [Rx] Past Medical History HEENT History: Reports: Impaired Vision Cardiovascular History: Reports: Heart Murmur Respiratory History: Reports: Sleep Apnea Gastrointestinal History: Reports: None Genitourinary History: Reports: None Musculoskeletal History: Reports: None Neurological History: Reports: Speech Problems Psychiatric History: Reports: Anxiety, Bipolar, Schizophrenia Endocrine/Metabolic History: Reports: Diabetes, Type II Hematologic History: Reports: None Immunologic History: Reports: None Oncologic (Cancer) History: Reports: None Dermatologic History: Reports: None - Infectious Disease History Infectious Disease History: Reports: None - Past Surgical History Head Surgeries/Procedures: Reports: None GI Surgical History: Reports: Appendectomy Social & Family History - Family History Family Medical History: Noncontributory - Tobacco Use Smoking Status *Q: Never Smoker - Caffeine Use Caffeine Use: Reports: Soda - Recreational Drug Use Recreational Drug Use: No ED ROS GENERAL - Review of Systems Review Of Systems: ROS reveals no pertinent complaints other than HPI. ED EXAM, UPPER BACK/NECK PAIN - Physical Exam Exam: See Below (see dictation) Course - Vital Signs Last Recorded V/S: Last Vital Signs Temp 36.0 C 02/05/19 10:10 Pulse 64 02/05/19 10:33 Resp 13 02/05/19 10:33 BP 82/56 L 02/05/19 10:33 Pulse Ox 93 L 02/05/19 10:33 - Orders/Labs/Meds Meds: Medications Discontinued Medications Generic Name Dose Route Start Last Admin Trade Name Freq PRN Reason Stop Dose Admin Ketorolac Tromethamine 60 mg 02/05/19 10:25 02/05/19 10:31 Toradol IM 02/05/19 10:26 60 mg ONETIME ONE Administration Orphenadrine Citrate 60 mg 02/05/19 10:25 02/05/19 10:31 Norflex IM 02/05/19 10:26 60 mg NOW STA Administration Departure - Departure Time of Disposition: 11:13 Disposition: Home, Self-Care 01 Clinical Impression: Neck muscle spasm - Discharge Information Prescriptions: Cyclobenzaprine [Flexeril] 10 mg PO BID PRN #8 tab PRN Reason: Spasms Diclofenac Sodium [Voltaren] 75 mg PO BIDMEALS PRN #10 tab.cr PRN Reason: Pain Referrals: PCP,Unknown [Primary Care Provider] - Forms: ED Department Discharge Additional Instructions: The following information is given to patients seen in the emergency department who are being discharged to home. This information is to outline your options for follow-up care. We provide all patients seen in our emergency department with a follow-up referral. The need for follow-up, as well as the timing and circumstances, are variable depending upon the specifics of your emergency department visit. If you don't have a primary care physician on staff, we will provide you with a referral. We always advise you to contact your personal physician following an emergency department visit to inform them of the circumstance of the visit and for follow-up with them and/or the need for any referrals to a consulting specialist. The emergency department will also refer you to a specialist when appropriate. This referral assures that you have the opportunity for follow-up care with a specialist. All of these measure are taken in an effort to provide you with optimal care, which includes your follow-up. Under all circumstances we always encourage you to contact your private physician who remains a resource for coordinating your care. When calling for follow-up care, please make the office aware that this follow-up is from your recent emergency room visit. If for any reason you are refused follow-up, please contact the [facility] Emergency Department at and asked to speak to the emergency department charge nurse. [facility] [address] [place] [address] [id number] [address] [id number] 1. Take medication as prescribed. You can also use Tylenol as directed for pain and discomfort. 2. Apply ice and/or heat to your neck 15 minutes on 15 minutes off for pain relief. 3. Follow up with her primary care provider as discussed. 4. Return to the ED as needed and as discussed.
--- NOTE | 2019-02-05 11:12 | CR ---
INDICATION: Slept weird 2 weeks ago. Neck pain since. TECHNIQUE: Scratch 2 views cervical spine. FINDINGS: Mild soft tissue prominence in the posterior nasopharynx and upper prevertebral soft tissues to the level of C1-C2 nonspecific. The C7 vertebral body cannot be visualized on the lateral view. Minimal anterior subluxation of C4 on C5. No fracture in the cervical spine from C1-C6. Moderately advanced degenerative changes in the cervical facet joints. Cervical spine otherwise unremarkable. Dictated by Bang Pringle MD @ Feb 05 2019 11:09AM Signed by Dr. Bang Pringle @ Feb 05 2019 11:11AM
== END 2019-02-05 11:24 | disposition home or self-care (01) ==
LOC: MW.ED 09:51
DX: M62.838 Other muscle spasm (principal); E11.9 Type 2 diabetes mellitus without complications; Z88.8 Allergy status to other drugs, medicaments and biological substances
CPT/HCPCS: 72040; 96372; 99283; J1885; J2360

== ENCOUNTER 2019-02-06 01:01 | Emergency (ER) | payer MEDICARE ==
--- NOTE | 2019-02-06 01:05 | EDM.PDOC ---
ED HPI GENERAL MEDICAL PROBLEM - General Chief Complaint: Neck Problem Stated Complaint: NECK PAIN Time Seen by Provider: 02/06/19 01:04 Source of Information: Reports: Patient - History of Present Illness INITIAL COMMENTS - FREE TEXT/NARRATIVE: HISTORY AND PHYSICAL: History of present illness: [Patient presents with head and neck pain via EMS He was seen within last 24 hours with similar complaint provided Norflex and tramadol Patient has special needs in a care provider, he is unreliable in his history, hence due to the repeat visit and by ambulance I've elected to perform a head CT and cervical spine although patient stresses pain in pain whether he is moving his head or exam are being examined, however physical findings are normal outside of exaggerated pain response No fever nausea vomiting chills sweats no chest pain shortness breathdizziness palpitation Review of systems: As per history of present illness and below otherwise all systems reviewed and negative. Past medical history: As per history of present illness and as reviewed below otherwise noncontributory. Surgical history: As per history of present illness and as reviewed below otherwise noncontributory. Social history: No reported history of drug or alcohol abuse. Family history: As per history of present illness and as reviewed below otherwise noncontributory. Physical exam: HEENT: Atraumatic, normocephalic, pupils reactive, negative for conjunctival pallor or scleral icterus, mucous membranes moist, throat clear, neck supple, nontender, trachea midline. Lungs: Clear to auscultation, breath sounds equal bilaterally, chest nontender. Heart: S1S2, regular, negative for clicks, rubs, or JVD. Abdomen: Soft, nondistended, nontender. Negative for masses or hepatosplenomegaly. Negative for costovertebral tenderness. Pelvis: Stable nontender. Genitourinary: Deferred. Rectal: Deferred. Extremities: Atraumatic, negative for cords or calf pain. Neurovascular unremarkable. Neuro: Awake, alert, oriented. Cranial nerves II through XII unremarkable. Cerebellum unremarkable. Motor and sensory unremarkable throughout. Exam nonfocal. Diagnostics: [CT head Cervical spine ] Therapeutics: continue Norflex and Toradol Impression: [I'll muscle spasm ] Definitive disposition and diagnosis as appropriate pending reevaluation and review of above. Right Neck Pain Score (Numeric/FACES): 8 - Related Data Allergies Allergy/AdvReac Type Severity Reaction Status Date / Time methylphenidate HCl Allergy Anxiety Verified 02/06/19 01:06 [From Ritalin] thioridazine HCl Allergy Anxiety Verified 02/06/19 01:06 [From Mellaril] Home Meds: Home Meds Benztropine [Cogentin] 2 mg PO BID 02/25/14 [History] Divalproex Sodium [Depakote] 500 mg PO DAILY 02/25/14 [History] Sertraline [Zoloft] 100 mg PO BEDTIME 02/25/14 [History] Ziprasidone HCl [Geodon] 60 mg PO BEDTIME 02/25/14 [History] Ziprasidone HCl [Geodon] 160 mg PO BEDTIME 02/25/14 [History] Divalproex Sodium [Depakote ER] 1,500 mg PO BEDTIME 10/28/14 [History] metFORMIN [Glucophage XR] 500 mg PO WITHDINNER 07/07/16 [History] Cyclobenzaprine [Flexeril] 10 mg PO BID PRN #8 tab 02/05/19 [Rx] Diclofenac Sodium [Voltaren] 75 mg PO BIDMEALS PRN #10 tab.cr 02/05/19 [Rx] Past Medical History HEENT History: Reports: Impaired Vision Cardiovascular History: Reports: Heart Murmur Respiratory History: Reports: Sleep Apnea Gastrointestinal History: Reports: None Genitourinary History: Reports: None Musculoskeletal History: Reports: None Neurological History: Reports: Speech Problems Psychiatric History: Reports: Anxiety, Bipolar, Schizophrenia Endocrine/Metabolic History: Reports: Diabetes, Type II Hematologic History: Reports: None Immunologic History: Reports: None Oncologic (Cancer) History: Reports: None Dermatologic History: Reports: None - Infectious Disease History Infectious Disease History: Reports: None - Past Surgical History Head Surgeries/Procedures: Reports: None GI Surgical History: Reports: Appendectomy Social & Family History - Family History Family Medical History: Noncontributory - Caffeine Use Caffeine Use: Reports: Soda ED ROS GENERAL - Review of Systems Review Of Systems: See Below ED EXAM, GENERAL - Physical Exam Exam: See Below Course - Vital Signs Last Recorded V/S: Last Vital Signs Temp 96.5 F 02/06/19 01:02 Pulse 66 02/06/19 01:02 Resp BP 117/74 02/06/19 01:02 Pulse Ox 96 02/06/19 01:02 Departure - Departure Time of Disposition: 02:07 Disposition: Home, Self-Care 01 Condition: Good Clinical Impression: Muscle spasm, Malingering - Discharge Information Forms: ED Department Discharge Additional Instructions: The following information is given to patients seen in the emergency department who are being discharged to home. This information is to outline your options for follow-up care. We provide all patients seen in our emergency department with a follow-up referral. The need for follow-up, as well as the timing and circumstances, are variable depending upon the specifics of your emergency department visit. If you don't have a primary care physician on staff, we will provide you with a referral. We always advise you to contact your personal physician following an emergency department visit to inform them of the circumstance of the visit and for follow-up with them and/or the need for any referrals to a consulting specialist. The emergency department will also refer you to a specialist when appropriate. This referral assures that you have the opportunity for follow-up care with a specialist. All of these measure are taken in an effort to provide you with optimal care, which includes your follow-up. Under all circumstances we always encourage you to contact your private physician who remains a resource for coordinating your care. When calling for follow-up care, please make the office aware that this follow-up is from your recent emergency room visit. If for any reason you are refused follow-up, please contact the [facility] emergency department at and asked to speak to the emergency department charge nurse.
--- NOTE | 2019-02-06 01:43 | CT ---
INDICATION: Fall. Pain TECHNIQUE: CT head without contrast. COMPARISON: None available FINDINGS: There is mild age-related cortical atrophy with mild proportionate ventriculomegaly. There is no mass effect or midline shift. 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 There is no loss of martinez-white differentiation. There is no evidence of an acute intracranial hemorrhage. A punctate calcification in the right cerebellum could be related to old granulomatous disease. No acute calvarial fracture is seen. There is mild mucosal thickening at the base of the left maxillary sinus and frontal sinus inferior recesses. The mastoid air cells are clear. The visualized orbits are within normal limits. IMPRESSION: No evidence of an acute intracranial hemorrhage, mass effect or loss of martinez-white differentiation. Dictated by Gurwinder Badillo MD @ 02/06/2019 1:41:34 AM Please note that all CT scans at this facility use dose modulation, iterative reconstruction, and/or weight-based dosing when appropriate to reduce radiation dose to as low as reasonably achievable. Dictated by: Gurwinder Badillo MD @ 02/06/2019 01:41:42 (Electronically Signed)
--- NOTE | 2019-02-06 01:52 | CT ---
INDICATION: Fall. Pain TECHNIQUE: CT cervical spine without contrast. COMPARISON: None available FINDINGS: There is straightening of the cervical lordosis. The craniocervical and atlantoaxial alignments are near anatomical. There is no evidence of an acute cervical spine fracture. There is no significant precervical soft tissue swelling. Degenerative changes are seen at several levels. IMPRESSION: No evidence of acute cervical spine fracture. Dictated by Gurwinder Badillo MD @ 02/06/2019 1:49:36 AM Please note that all CT scans at this facility use dose modulation, iterative reconstruction, and/or weight-based dosing when appropriate to reduce radiation dose to as low as reasonably achievable. Dictated by: Gurwinder Badillo MD @ 02/06/2019 01:49:42 (Electronically Signed)
[2019-02-06 04:15] VITALS: BP 115/82
== END 2019-02-06 04:11 | disposition home or self-care (01) ==
LOC: MW.ED 01:01
DX: M62.838 Other muscle spasm (principal); Z76.5 Malingerer [conscious simulation]; E11.9 Type 2 diabetes mellitus without complications; F31.9 Bipolar disorder, unspecified; F41.9 Anxiety disorder, unspecified; Z79.84 Long term (current) use of oral hypoglycemic drugs; Z88.8 Allergy status to other drugs, medicaments and biological substances; Z79.899 Other long term (current) drug therapy
CPT/HCPCS: 70450; 70450-26; 72125; 72125-26; 99283; 99284-25

== ENCOUNTER 2019-07-14 20:17 | Emergency (ER) | payer MEDICARE, MEDICAID ==
--- NOTE | 2019-07-14 21:03 | EDM.PDOC ---
ED HPI GENERAL MEDICAL PROBLEM - General Chief Complaint: ENT Problem Stated Complaint: STREP THROAT Time Seen by Provider: 07/14/19 20:56 - History of Present Illness INITIAL COMMENTS - FREE TEXT/NARRATIVE: HISTORY AND PHYSICAL: History of present illness: The patient is a 58-year-old male who is well known to this provider in this emergency department for frequent ER visits and who presents with complaints of sore throat that started today. He is eating and drinking and has no fevers chills runny nose chest pain shortness of breath congestion and has had no vomiting diarrhea or abdominal pain. Review of systems: As per history of present illness and below otherwise all systems reviewed and negative. Past medical history: As per history of present illness and as reviewed below otherwise noncontributory. Surgical history: As per history of present illness and as reviewed below otherwise noncontributory. Social history: No reported history of drug or alcohol abuse. Family history: As per history of present illness and as reviewed below otherwise noncontributory. Physical exam: Temp: Well-developed well-nourished man who is overweight and nontoxic and vital signs are noted by me HEENT: Atraumatic, normocephalic, pupils reactive, negative for conjunctival pallor or scleral icterus, mucous membranes tacky, throat clear of exudates and there is some minimal oropharyngeal erythema, neck supple, nontender, trachea midline. There is no cervical adenopathy or nuchal rigidity no sinus tenderness Lungs: Clear to auscultation, breath sounds equal bilaterally, chest nontender. No wheezing stridor or work of breathing Heart: S1S2, regular rate and rhythm no overt murmurs Abdomen: Soft, nondistended, nontender. NABS Pelvis: Deferred Genitourinary: Deferred. Rectal: Deferred. Extremities: Atraumatic, negative for cords or calf pain. Neurovascular unremarkable. Neuro: Awake, alert, oriented. Cranial nerves II through XII unremarkable. Cerebellum unremarkable. Motor and sensory unremarkable throughout. Exam nonfocal. Diagnostics: Rapid strep Therapeutics: [] Impression: Pharyngitis Definitive disposition and diagnosis as appropriate pending reevaluation and review of above. Throat Pain Score (Numeric/FACES): 6 - Related Data Allergies Allergy/AdvReac Type Severity Reaction Status Date / Time methylphenidate HCl Allergy Anxiety Verified 07/14/19 20:44 [From Ritalin] thioridazine HCl Allergy Anxiety Verified 07/14/19 20:44 [From Mellaril] Home Meds: Home Meds Benztropine [Cogentin] 2 mg PO BID 02/25/14 [History] Divalproex Sodium [Depakote] 500 mg PO DAILY 02/25/14 [History] Sertraline [Zoloft] 100 mg PO BEDTIME 02/25/14 [History] Ziprasidone HCl [Geodon] 60 mg PO BEDTIME 02/25/14 [History] Ziprasidone HCl [Geodon] 160 mg PO BEDTIME 02/25/14 [History] Divalproex Sodium [Depakote ER] 1,500 mg PO BEDTIME 10/28/14 [History] metFORMIN [Glucophage XR] 500 mg PO WITHDINNER 07/07/16 [History] Cyclobenzaprine [Flexeril] 10 mg PO BID PRN #8 tab 02/05/19 [Rx] Diclofenac Sodium [Voltaren] 75 mg PO BIDMEALS PRN #10 tab.cr 02/05/19 [Rx] Past Medical History HEENT History: Reports: Impaired Vision Cardiovascular History: Reports: Heart Murmur Respiratory History: Reports: Sleep Apnea Gastrointestinal History: Reports: None Genitourinary History: Reports: None Musculoskeletal History: Reports: None Neurological History: Reports: Speech Problems Psychiatric History: Reports: Anxiety, Bipolar, Schizophrenia Endocrine/Metabolic History: Reports: Diabetes, Type II Hematologic History: Reports: None Immunologic History: Reports: None Oncologic (Cancer) History: Reports: None Dermatologic History: Reports: None - Infectious Disease History Infectious Disease History: Reports: Mumps - Past Surgical History Head Surgeries/Procedures: Reports: None GI Surgical History: Reports: Appendectomy Social & Family History - Family History Family Medical History: Noncontributory - Tobacco Use Smoking Status *Q: Never Smoker - Caffeine Use Caffeine Use: Reports: Tea - Recreational Drug Use Recreational Drug Use: No ED ROS GENERAL - Review of Systems Review Of Systems: ROS reveals no pertinent complaints other than HPI. ED EXAM, GENERAL - Physical Exam Exam: See Below (See dictation) Course - Vital Signs Last Recorded V/S: Last Vital Signs Temp 36.1 C 07/14/19 20:45 Pulse 77 07/14/19 20:45 Resp 17 07/14/19 20:45 BP 124/65 07/14/19 20:45 Pulse Ox 95 07/14/19 20:45 - Orders/Labs/Meds Orders: Active Orders 24 hr Category Date Time Status CULTURE STREP A CONFIRMATION [] Stat Lab 07/14/19 21:00 Results STREP SCRN A RAPID W CULT CONF [RM] Stat Lab 07/14/19 21:00 Results Departure - Departure Time of Disposition: 21:20 Disposition: Home, Self-Care 01 Condition: Good Clinical Impression: Pharyngitis Qualifiers: Pharyngitis/tonsillitis etiology: unspecified etiology Qualified Code(s): J02.9 - Acute pharyngitis, unspecified - Discharge Information Referrals: PCP,None [Primary Care Provider] - Forms: ED Department Discharge Additional Instructions: The following information is given to patients seen in the emergency department who are being discharged to home. This information is to outline your options for follow-up care. We provide all patients seen in our emergency department with a follow-up referral. The need for follow-up, as well as the timing and circumstances, are variable depending upon the specifics of your emergency department visit. If you don't have a primary care physician on staff, we will provide you with a referral. We always advise you to contact your personal physician following an emergency department visit to inform them of the circumstance of the visit and for follow-up with them and/or the need for any referrals to a consulting specialist. The emergency department will also refer you to a specialist when appropriate. This referral assures that you have the opportunity for followup care with a specialist. All of these measure are taken in an effort to provide you with optimal care, which includes your followup. Under all circumstances we always encourage you to contact your private physician who remains a resource for coordinating your care. When calling for followup care, please make the office aware that this follow-up is from your recent emergency room visit. If for any reason you are refused follow-up, please contact the [facility] emergency department at and ask to speak to the emergency department charge nurse. [address] [place] [address] Please connect with your provider at [facility] next week for reevaluation and further care and push hydration. Use [id number] Tylenol or ibuprofen for pain and fevers and return to ER as needed as discussed - My Orders Last 24 Hours: My Active Orders 07/14/19 21:00 CULTURE STREP A CONFIRMATION [RM] Stat STREP SCRN A RAPID W CULT CONF [RM] Stat - Assessment/Plan Last 24 Hours: My Active Orders 07/14/19 21:00 CULTURE STREP A CONFIRMATION [RM] Stat STREP SCRN A RAPID W CULT CONF [RM] Stat
[2019-07-14 21:23] VITALS: BP 104/65; PULSE 86
== END 2019-07-14 21:26 | disposition home or self-care (01) ==
LOC: MW.ED 20:17
DX: J02.9 Acute pharyngitis, unspecified (principal); E11.9 Type 2 diabetes mellitus without complications; F20.9 Schizophrenia, unspecified; F41.9 Anxiety disorder, unspecified; Z88.8 Allergy status to other drugs, medicaments and biological substances; Z79.899 Other long term (current) drug therapy; Z79.84 Long term (current) use of oral hypoglycemic drugs
CPT/HCPCS: 87081; 87880-QW; 99283

== ENCOUNTER 2019-11-30 12:55 | Emergency (ER) | payer MEDICAID, MEDICARE ==
[2019-11-30 13:13] VITALS: BP 142/80; PULSE 94
--- NOTE | 2019-11-30 13:24 | EDM.PDOC ---
ED HPI GENERAL MEDICAL PROBLEM - General Chief Complaint: General Stated Complaint: FLU SYM Time Seen by Provider: 11/30/19 13:24 Source of Information: Reports: Patient History Limitations: Reports: No Limitations - History of Present Illness INITIAL COMMENTS - FREE TEXT/NARRATIVE: HISTORY AND PHYSICAL: History of present illness: Patient is a 59-year-old male with history of diabetes presents to the ED with complaint of possible flu. Patient states he developed nonblood diarrhea this morning as well as a cough. He states he has been nauseous but no diarrhea. He denies chest pain, shortness of breath, abdominal pain, sore throat, ear pain, fevers, or chills. Review of systems: As per history of present illness and below otherwise all systems reviewed and negative. Past medical history: As per history of present illness and as reviewed below otherwise noncontributory. Surgical history: As per history of present illness and as reviewed below otherwise noncontributory. Social history: No reported history of drug or alcohol abuse. Family history: As per history of present illness and as reviewed below otherwise noncontributory. Physical exam: General: Patient sitting comfortably in no acute distress and nontoxic appearing HEENT: Atraumatic, normocephalic, pupils reactive, negative for conjunctival pallor or scleral icterus, mucous membranes moist, throat clear, neck supple, nontender, trachea midline. No meningeal signs. Lungs: Clear to auscultation, breath sounds equal bilaterally, chest nontender. Heart: S1S2, regular, negative for clicks, rubs, or overt murmur. Abdomen: Soft, nondistended, nontender. Negative for masses or hepatosplenomegaly. Negative for costovertebral tenderness. No rigidity, rebound , guarding. Pelvis: Stable nontender. Genitourinary: Deferred. Rectal: Deferred. Extremities: Atraumatic, negative for cords or calf pain. Neurovascular unremarkable. Neuro: Awake, alert, oriented. Cranial nerves II through XII unremarkable. Cerebellum unremarkable. Motor and sensory unremarkable throughout. Exam nonfocal. Notes: Diagnostics: Influenza, CXR Therapeutics: none Prescriptions: none Impression: Gastroenteritis Plan: Drink plenty of small sips of fluids throughout the day and bland food as tolerated Follow-up with primary care provider Return to ED as needed as discussed Definitive disposition and diagnosis as appropriate pending reevaluation and review of above. Headache Pain Score (Numeric/FACES): 6 - Related Data Allergies Allergy/AdvReac Type Severity Reaction Status Date / Time methylphenidate HCl Allergy Anxiety Verified 11/30/19 13:13 [From Ritalin] thioridazine HCl Allergy Anxiety Verified 11/30/19 13:13 [From Mellaril] Home Meds: Home Meds Benztropine [Cogentin] 2 mg PO BID 02/25/14 [History] Divalproex Sodium [Depakote] 500 mg PO DAILY 02/25/14 [History] Sertraline [Zoloft] 100 mg PO BEDTIME 02/25/14 [History] Ziprasidone HCl [Geodon] 60 mg PO BEDTIME 02/25/14 [History] Ziprasidone HCl [Geodon] 160 mg PO BEDTIME 02/25/14 [History] Divalproex Sodium [Depakote ER] 1,500 mg PO BEDTIME 10/28/14 [History] metFORMIN [Glucophage XR] 500 mg PO WITHDINNER 07/07/16 [History] Cyclobenzaprine [Flexeril] 10 mg PO BID PRN #8 tab 02/05/19 [Rx] Diclofenac Sodium [Voltaren] 75 mg PO BIDMEALS PRN #10 tab.cr 02/05/19 [Rx] Past Medical History HEENT History: Reports: Impaired Vision Cardiovascular History: Reports: Heart Murmur, [place] Respiratory History: Reports: Sleep Apnea Gastrointestinal History: Reports: None Genitourinary History: Reports: None Musculoskeletal History: Reports: None Neurological History: Reports: Speech Problems Psychiatric History: Reports: Anxiety, Bipolar, Schizophrenia Endocrine/Metabolic History: Reports: Diabetes, Type II Hematologic History: Reports: None Immunologic History: Reports: None Oncologic (Cancer) History: Reports: None Dermatologic History: Reports: None - Infectious Disease History Infectious Disease History: Reports: Mumps - Past Surgical History Head Surgeries/Procedures: Reports: None GI Surgical History: Reports: Appendectomy Social & Family History - Family History Family Medical History: Noncontributory - Tobacco Use Smoking Status *Q: Never Smoker - Caffeine Use Caffeine Use: Reports: Tea - Recreational Drug Use Recreational Drug Use: No ED ROS GENERAL - Review of Systems Review Of Systems: Comprehensive ROS is negative, except as noted in HPI. ED EXAM, GENERAL - Physical Exam Exam: See Below (see dictation) Course - Vital Signs Last Recorded V/S: Last Vital Signs Temp 99.3 F 11/30/19 13:08 Pulse 94 11/30/19 13:08 Resp 18 11/30/19 13:08 BP 142/80 H 11/30/19 13:08 Pulse Ox 95 11/30/19 13:08 Departure - Departure Time of Disposition: 14:58 Disposition: Home, Self-Care 01 Condition: Good Clinical Impression: Gastroenteritis - Discharge Information Referrals: Vikas Castaneda MD [Primary Care Provider] - Forms: ED Department Discharge Additional Instructions: The following information is given to patients seen in the emergency department who are being discharged to home. This information is to outline your options for follow-up care. We provide all patients seen in our emergency department with a follow-up referral. The need for follow-up, as well as the timing and circumstances, are variable depending upon the specifics of your emergency department visit. If you don't have a primary care physician on staff, we will provide you with a referral. We always advise you to contact your personal physician following an emergency department visit to inform them of the circumstance of the visit and for follow-up with them and/or the need for any referrals to a consulting specialist. The emergency department will also refer you to a specialist when appropriate. This referral assures that you have the opportunity for follow-up care with a specialist. All of these measure are taken in an effort to provide you with optimal care, which includes your follow-up. Under all circumstances we always encourage you to contact your private physician who remains a resource for coordinating your care. When calling for follow-up care, please make the office aware that this follow-up is from your recent emergency room visit. If for any reason you are refused follow-up, please contact the [facility] Emergency Department at and asked to speak to the emergency department charge nurse. [facility] [address] [place] [id number] [address] Drink plenty of small sips of fluids throughout the day and bland food as tolerated Follow-up with primary care provider Return to ED as needed as discussed Sepsis Event Note - Evaluation Sepsis Screening Result: No Definite Risk - Focused Exam Vital Signs: Vital Signs Temp Pulse Resp BP Pulse Ox 11/30/19 13:08 99.3 F 94 18 142/80 H 95 Date Exam was Performed: 11/30/19 Time Exam was Performed: 14:57
--- NOTE | 2019-11-30 14:53 | CR ---
Chest: 2 views of the chest were obtained. Comparison: Prior chest x-ray of 12/12/18. Heart is mildly enlarged. Slight linear scarring is seen with left mid to lower lung. Mild chronic appearing pulmonary vascular congestion is seen. Lungs otherwise are clear. Bony structures are within normal limits for the patient's age. Impression: 1. Findings as described above. 2. No change from previous study is seen. Diagnostic code #2 This report was dictated in Mountain Standard Time
== END 2019-11-30 15:15 | disposition home or self-care (01) ==
LOC: MW.ED 12:55
DX: K52.9 Noninfective gastroenteritis and colitis, unspecified (principal); E11.9 Type 2 diabetes mellitus without complications; I25.2 Old myocardial infarction; F41.9 Anxiety disorder, unspecified; Z88.8 Allergy status to other drugs, medicaments and biological substances; Z79.899 Other long term (current) drug therapy; Z79.84 Long term (current) use of oral hypoglycemic drugs
CPT/HCPCS: 71046; 71046-26; 87804; 99282; 99283-25

== ENCOUNTER 2020-08-03 11:36 | Emergency (ER) | payer MEDICAID, MEDICARE ==
--- NOTE | 2020-08-03 12:46 | EDM.PDOC ---
ED HPI GENERAL MEDICAL PROBLEM - General Stated Complaint: POSSIBLE COVID SYMPTOMS Time Seen by Provider: 08/03/20 12:21 Source of Information: Reports: Patient History Limitations: Reports: No Limitations - History of Present Illness INITIAL COMMENTS - FREE TEXT/NARRATIVE: 59-year-old male past medical history bipolar disorder, schizoaffective disorder, pancreatitis, constipation, diabetes presents for concern for COVID-19 infection. Patient is a poor historian likely secondary to mental disorder. Patient states that for the last several days he has had a dry throat, and nonproductive cough. He denies any shortness of breath or chest pain. No fevers noted. - Related Data Allergies Allergy/AdvReac Type Severity Reaction Status Date / Time methylphenidate HCl Allergy Anxiety Verified 11/30/19 13:13 [From Ritalin] thioridazine HCl Allergy Anxiety Verified 11/30/19 13:13 [From Mellaril] Home Meds: Home Meds Benztropine [Cogentin] 2 mg PO BID 02/25/14 [History] Divalproex Sodium [Depakote] 500 mg PO DAILY 02/25/14 [History] Sertraline [Zoloft] 100 mg PO BEDTIME 02/25/14 [History] ziprasidone HCL [Geodon] 60 mg PO BEDTIME 02/25/14 [History] ziprasidone HCL [Geodon] 160 mg PO BEDTIME 02/25/14 [History] Divalproex Sodium [Depakote ER] 1,500 mg PO BEDTIME 10/28/14 [History] metFORMIN [Glucophage XR] 500 mg PO WITHDINNER 07/07/16 [History] Cyclobenzaprine [Flexeril] 10 mg PO BID PRN #8 tab 02/05/19 [Rx] Diclofenac Sodium [Voltaren] 75 mg PO BIDMEALS PRN #10 tab.cr 02/05/19 [Rx] Past Medical History HEENT History: Reports: Impaired Vision Cardiovascular History: Reports: Heart Murmur, [place] Respiratory History: Reports: Sleep Apnea Gastrointestinal History: Reports: None Genitourinary History: Reports: None Musculoskeletal History: Reports: None Neurological History: Reports: Speech Problems Psychiatric History: Reports: Anxiety, Bipolar, Schizophrenia Endocrine/Metabolic History: Reports: Diabetes, Type II Hematologic History: Reports: None Immunologic History: Reports: None Oncologic (Cancer) History: Reports: None Dermatologic History: Reports: None - Infectious Disease History Infectious Disease History: Reports: Mumps - Past Surgical History Head Surgeries/Procedures: Reports: None GI Surgical History: Reports: Appendectomy Social & Family History - Family History Family Medical History: Noncontributory - Caffeine Use Caffeine Use: Reports: Tea ED ROS GENERAL - Review of Systems Review Of Systems: Comprehensive ROS is negative, except as noted in HPI. ED EXAM, GENERAL - Physical Exam Exam: See Below Exam Limited By: No Limitations General Appearance: Alert, WD/WN, No Apparent Distress Nose: Normal Inspection Throat/Mouth: Normal Voice, No Airway Compromise Head: Atraumatic, Normocephalic Neck: Normal Inspection Respiratory/Chest: No Respiratory Distress, Lungs Clear, Normal Breath Sounds, No Accessory Muscle Use Cardiovascular: Normal Peripheral Pulses Extremities: Normal Inspection Neurological: Alert Psychiatric: Normal Affect, Normal Mood Skin Exam: Warm, Dry, Intact Course - Vital Signs Last Recorded V/S: Last Vital Signs Temp 98.4 F 08/03/20 13:38 Pulse 89 08/03/20 13:38 Resp 18 08/03/20 13:38 BP 113/67 08/03/20 13:38 Pulse Ox 94 L 08/03/20 13:38 - Orders/Labs/Meds Orders: Active Orders 24 hr Category Date Time Status CORONAVIRUS COVID-19 PCR PHL Stat Lab 08/03/20 12:43 Ordered Labs: Laboratory Tests 08/03/20 08/03/20 Range/Units 12:36 13:55 POC Glucose 90 (60-110) mg/dL SARS CoV-2 RNA Rapid JES POSITIVE H (NEGATIVE) - Re-Assessments/Exams Free Text/Narrative Re-Assessment/Exam: 08/03/20 13:50 Chest x-ray is unremarkable, will follow up COVID-19 swab and disposition accordingly. Patient has maintained normal oxygen saturation on room air throughout the ED stay. 08/03/20 14:38 Patient's COVID-19 swab is positive. He has remained above 92% O2 sats throughout his ED stay on room air. Chest x-ray does not show evidence of pneumonia. I spoke with his friend who will come pick him up. Return precautions were discussed including difficulty breathing or chest pain. Departure - Departure Time of Disposition: 14:38 Disposition: Home, Self-Care 01 Condition: Good Clinical Impression: COVID-19 - Discharge Information Instructions: COVID-19 Frequently Asked Questions, COVID-19: How to Protect Yourself and Others - CDC, Prevent the Spread of COVID-19 if You Are Sick - [facility] Referrals: PCP,None [Primary Care Provider] - Additional Instructions: Your COVID-19 test was positive. Your chest x-ray did not show evidence of pneumonia. Your oxygen saturations have remained good throughout your emergency department stay. If you start to develop difficulty breathing or chest pressure , you should come back to the emergency department for reassessment. You should avoid other people and socially isolated for 10 days. If you are still feeling ill after 10 days, you should quarantine for an additional 10 days or until you have a negative COVID-19 swab. The following information is given to patients seen in the emergency department who are being discharged to home. This information is to outline your options for follow-up care. We provide all patients seen in our emergency department with a follow-up referral. The need for follow-up, as well as the timing and circumstances, are variable depending upon the specifics of your emergency department visit. If you don't have a primary care physician on staff, we will provide you with a referral. We always advise you to contact your personal physician following an emergency department visit to inform them of the circumstance of the visit and for follow-up with them and/or the need for any referrals to a consulting specialist. The emergency department will also refer you to a specialist when appropriate. This referral assures that you have the opportunity for follow-up care with a specialist. All of these measure are taken in an effort to provide you with optimal care, which includes your follow-up. Under all circumstances we always encourage you to contact your private physician who remains a resource for coordinating your care. When calling for follow-up care, please make the office aware that this follow-up is from your recent emergency room visit. If for any reason you are refused follow-up, please contact the [facility] Emergency Department at and asked to speak to the emergency department charge nurse. Please follow up with your primary care physician. If you do not have a primary care physician, see below: [facility] [address] [place] [id number] [facility] [address] [place] [address] Sepsis Event Note (ED) - Focused Exam Vital Signs: Vital Signs Temp Pulse Resp BP Pulse Ox 08/03/20 13:38 98.4 F 89 18 113/67 94 L - My Orders Last 24 Hours: My Active Orders 08/03/20 12:43 CORONAVIRUS COVID-19 PCR PHL Stat - Assessment/Plan Last 24 Hours: My Active Orders 08/03/20 12:43 CORONAVIRUS COVID-19 PCR PHL Stat
--- NOTE | 2020-08-03 13:40 | CR ---
Indication: Dyspnea. Possible COVID. Technique: AP portable view of the chest. Comparison: November 30, 2019. Findings: The heart is normal in size. The lungs are clear. No infiltrate, pleural effusion, or pneumothorax is identified. Impression: No acute cardiopulmonary process. Dictated by Monae Davey MD @ Aug 03 2020 1:39PM Signed by Dr. Monae Davey @ Aug 03 2020 1:39PM
[2020-08-03 16:47] VITALS: BP 120/72; PULSE 93
== END 2020-08-03 14:45 | disposition home or self-care (01) ==
LOC: MW.ED 11:36
DX: U07.1 COVID-19 (principal); I25.2 Old myocardial infarction; F31.9 Bipolar disorder, unspecified; F20.9 Schizophrenia, unspecified; E11.9 Type 2 diabetes mellitus without complications; F41.9 Anxiety disorder, unspecified; Z88.8 Allergy status to other drugs, medicaments and biological substances; Z79.899 Other long term (current) drug therapy; Z79.84 Long term (current) use of oral hypoglycemic drugs
CPT/HCPCS: 71045; 82962; 99283; U0002; 99282

== ENCOUNTER 2020-08-11 10:14 | Emergency (ER) | payer MEDICARE ==
[2020-08-11 10:30] VITALS: BP 120/73; PULSE 76
--- NOTE | 2020-08-11 10:48 | EDM.PDOC ---
ED HPI GENERAL MEDICAL PROBLEM - General Chief Complaint: ENT Problem Stated Complaint: POSSIBLE STREP THROAT Time Seen by Provider: 08/11/20 10:32 Source of Information: Reports: Patient History Limitations: Reports: Other (poor historian) - History of Present Illness INITIAL COMMENTS - FREE TEXT/NARRATIVE: HISTORY AND PHYSICAL: History of present illness: Patient is a 59-year-old male who presents to the ED today with concern of a sore throat but states he also has COVID-19. Patient states he was diagnosed approximately 1 week ago with COVID-19 and is following with the state for her symptoms. Patient states his primary symptom has been a cough which has been ongoing since his diagnosis. Patient states today he began having a sore throat so came because he was concerned about possible strep throat. Patient states he has not taken anything for her sore throat. Patient denies any other symptoms or concerns. Patient denies fever, chills, chest pain, shortness of breath, or cough. Denies headache, neck stiff ness, change in vision, syncope, or near syncope. Denies nausea, vomiting, abdominal pain, diarrhea, constipation, or dysuria. Has not noted any blood in urine or stool. Patient has been eating and drinking appropriately. Review of systems: As per history of present illness and below otherwise all systems reviewed and negative. Past medical history: As per history of present illness and as reviewed below otherwise noncontributory. Surgical history: As per history of present illness and as reviewed below otherwise noncontributory. Social history: See social history for further information Family history: As per history of present illness and as reviewed below otherwise noncontributory. Physical exam: General: Patient is alert, oriented, and in no acute distress. Patient sitting comfortably on exam table. Vital stable and reviewed by me. HEENT: Atraumatic, normocephalic, pupils equal and reactive bilaterally, negative for conjunctival pallor or scleral icterus, mucous membranes moist, TMs normal bilaterally, throat clear and mildly erythematous without exudate and equal, uvula midline neck supple, nontender, trachea midline. No drooling or trismus noted. No meningeal signs. No hot potato voice noted. Lungs: Right cough on exam. Patient speaking clearly without breathlessness, no wheezing or stridor, no accessory muscle use or respiratory distress. Auscultation deferred due to current COV-ID 19 outbreak. Heart: Auscultation deferred due to current COV-ID 19 outbreak. Abdomen: nondistended Pelvis: Stable nontender. Genitourinary: Deferred. Rectal: Deferred. Skin: Intact, warm, dry. No lesions or rashes noted. Extremities: Atraumatic, negative for cords or calf pain. Neurovascular unremarkable. Neuro: Awake, alert, oriented. Cranial nerves II through XII unremarkable. Cerebellum unremarkable. Motor and sensory unremarkable throughout. Exam nonfocal. Notes: Signs and symptoms are prompt return to the ED thoroughly discussed with patient. Discussed importance for follow-up with a primary care provider. Voices understanding and is agreeable to plan of care. Denies any further questions or concerns at this time. Diagnostics: Strep Therapeutics: None Prescription: None Impression: Pharyngitis COVID-19 infection, subsequent encounter Plan: 1. Use cough drops and/or other over the counter medications as needed for throat discomfort as discussed. Drink small but frequent sips of fluid to prevent dehydration. 2. Alternate Ibuprofen and Tylenol as directed for pain and discomfort. 3. Follow up with your primary care provider as discussed. 4. Return to the ED as needed and as discussed. 5. Continue to isolate as recommended for COVID-19 infection as directed by the [facility] of [facility]. Definitive disposition and diagnosis as appropriate pending reevaluation and review of above. throat Pain Score (Numeric/FACES): 6 - Related Data Allergies Allergy/AdvReac Type Severity Reaction Status Date / Time methylphenidate HCl Allergy Anxiety Verified 08/11/20 10:30 [From Ritalin] thioridazine HCl Allergy Anxiety Verified 08/11/20 10:30 [From Mellaril] Home Meds: Home Meds Benztropine [Cogentin] 2 mg PO BID 02/25/14 [History] Divalproex Sodium [Depakote] 500 mg PO DAILY 02/25/14 [History] Sertraline [Zoloft] 100 mg PO BEDTIME 02/25/14 [History] ziprasidone HCL [Geodon] 60 mg PO BEDTIME 02/25/14 [History] ziprasidone HCL [Geodon] 160 mg PO BEDTIME 02/25/14 [History] Divalproex Sodium [Depakote ER] 1,500 mg PO BEDTIME 10/28/14 [History] metFORMIN [Glucophage XR] 500 mg PO WITHDINNER 07/07/16 [History] Cyclobenzaprine [Flexeril] 10 mg PO BID PRN #8 tab 02/05/19 [Rx] Diclofenac Sodium [Voltaren] 75 mg PO BIDMEALS PRN #10 tab.cr 02/05/19 [Rx] Past Medical History HEENT History: Reports: Impaired Vision Cardiovascular History: Reports: Heart [place], [place] Respiratory History: Reports: Sleep Apnea Gastrointestinal History: Reports: None Genitourinary History: Reports: None Musculoskeletal History: Reports: None Neurological History: Reports: Speech Problems Psychiatric History: Reports: Anxiety, Bipolar, Schizophrenia Endocrine/Metabolic History: Reports: Diabetes, Type II Hematologic History: Reports: None Immunologic History: Reports: None Oncologic (Cancer) History: Reports: None Dermatologic History: Reports: None - Infectious Disease History Infectious Disease History: Reports: Mumps - Past Surgical History Head Surgeries/Procedures: Reports: None GI Surgical History: Reports: Appendectomy Social & Family History - Family History Family Medical History: Noncontributory - Tobacco Use Tobacco Use Status *Q: Never Tobacco User - Caffeine Use Caffeine Use: Reports: Tea - Recreational Drug Use Recreational Drug Use: No ED ROS GENERAL - Review of Systems Review Of Systems: Comprehensive ROS is negative, except as noted in HPI. ED EXAM, GENERAL - Physical Exam Exam: See Below (see dictation) Course - Vital Signs Last Recorded V/S: Last Vital Signs Temp 95.8 F L 08/11/20 10:28 Pulse 76 08/11/20 10:28 Resp 17 08/11/20 10:28 BP 120/73 08/11/20 10:28 Pulse Ox 95 08/11/20 10:28 - Orders/Labs/Meds Orders: Active Orders 24 hr Category Date Time Status CULTURE STREP A CONFIRMATION [RM] Stat Lab 08/11/20 10:40 Results STREP SCRN A RAPID W CULT CONF [RM] Stat Lab 08/11/20 10:40 Results Departure - Departure Time of Disposition: 11:09 Disposition: Home, Self-Care 01 Clinical Impression: COVID-19 Pharyngitis Qualifiers: Pharyngitis/tonsillitis etiology: unspecified etiology Qualified Code(s): J02.9 - Acute pharyngitis, unspecified - Discharge Information Referrals: PCP,None [Primary Care Provider] - Forms: ED Department Discharge Additional Instructions: The following information is given to patients seen in the emergency department who are being discharged to home. This information is to outline your options for follow-up care. We provide all patients seen in our emergency department with a follow-up referral. The need for follow-up, as well as the timing and circumstances, are variable depending upon the specifics of your emergency department visit. If you don't have a primary care physician on staff, we will provide you with a referral. We always advise you to contact your personal physician following an emergency department visit to inform them of the circumstance of the visit and for follow-up with them and/or the need for any referrals to a consulting specialist. The emergency department will also refer you to a specialist when appropriate. This referral assures that you have the opportunity for follow-up care with a specialist. All of these measure are taken in an effort to provide you with optimal care, which includes your follow-up. Under all circumstances we always encourage you to contact your private physician who remains a resource for coordinating your care. When calling for follow-up care, please make the office aware that this follow-up is from your recent emergency room visit. If for any reason you are refused follow-up, please contact the [facility] Emergency Department at and asked to speak to the emergency department charge nurse. [facility] [address] [place] [id number] [address] [address] 1. Use cough drops and/or other over the counter medications as needed for throat discomfort as discussed. Drink small but frequent sips of fluid to prevent dehydration. 2. Alternate Ibuprofen and Tylenol as directed for pain and discomfort. 3. Follow up with your primary care provider as discussed. 4. Return to the ED as needed and as discussed. 5. Continue to isolate as recommended for COVID-19 infection as directed by the [place] department of health. Sepsis Event Note (ED) - Evaluation Sepsis Screening Result: No Definite Risk - Focused Exam Vital Signs: Vital Signs Temp Pulse Resp BP Pulse Ox 08/11/20 10:28 95.8 F L 76 17 120/73 95 - My Orders Last 24 Hours: My Active Orders 08/11/20 10:40 CULTURE STREP A CONFIRMATION [RM] Stat STREP SCRN A RAPID W CULT CONF [] Stat - Assessment/Plan Last 24 Hours: My Active Orders 08/11/20 10:40 CULTURE STREP A CONFIRMATION [RM] Stat STREP SCRN A RAPID W CULT CONF [] Stat
== END 2020-08-11 11:19 | disposition home or self-care (01) ==
LOC: MW.ED 10:14
DX: U07.1 COVID-19 (principal); J02.9 Acute pharyngitis, unspecified; F31.9 Bipolar disorder, unspecified; F41.9 Anxiety disorder, unspecified; E11.9 Type 2 diabetes mellitus without complications; Z88.8 Allergy status to other drugs, medicaments and biological substances; Z79.4 Long term (current) use of insulin; Z79.899 Other long term (current) drug therapy; Z90.49 Acquired absence of other specified parts of digestive tract
CPT/HCPCS: 87081; 87880-QW; 99283

== ENCOUNTER 2020-10-14 17:56 | Emergency (ER) | payer MEDICARE ==
--- NOTE | 2020-10-14 18:09 | PCM.SN.2 ---
- Free Text/Narrative Note: EKG Time 602pm Rate 99 NSR no MAGDALENA
--- NOTE | 2020-10-14 18:25 | EDM.PDOC ---
ED HPI GENERAL MEDICAL PROBLEM - General Chief Complaint: Respiratory Problem Stated Complaint: EMS Time Seen by Provider: 10/14/20 17:59 Source of Information: Reports: Patient History Limitations: Reports: No Limitations - History of Present Illness INITIAL COMMENTS - FREE TEXT/NARRATIVE: The patient is a 60-year-old male who presented today to be evaluated. Patient has no medical complaints and asked why he came patient states that he does not want to be admitted to the hospital today patient denied any shortness of breath chest pain fever chills. Patient did mention that he has not been having dreams lately. Patient also asked if we can go home and get his CPAP machine because if he was going to be staying he would need that for tonight. Patient had no other requests. - Related Data Allergies Allergy/AdvReac Type Severity Reaction Status Date / Time methylphenidate HCl Allergy Anxiety Verified 10/14/20 19:13 [From Ritalin] thioridazine HCl Allergy Anxiety Verified 10/14/20 19:13 [From Mellaril] Home Meds: Home Meds Sertraline [Zoloft] 100 mg PO BEDTIME 02/25/14 [History] ziprasidone HCL [Geodon] 100 mg PO BEDTIME 02/25/14 [History] Divalproex Sodium [Depakote ER] 250 mg PO BEDTIME 10/28/14 [History] metFORMIN [Glucophage XR] 1,000 mg PO WITHDINNER 07/07/16 [History] Aspirin 81 mg PO DAILY 10/14/20 [History] Benztropine [Cogentin] 2 mg PO BID 10/14/20 [History] Divalproex Sodium [Depakote] 1,000 mg PO DAILY 10/14/20 [History] Meloxicam 7.5 mg PO DAILY 10/14/20 [History] Tamsulosin [Flomax] 0.4 mg PO DAILY 10/14/20 [History] atorvaSTATin [Lipitor] 20 mg PO DAILY 10/14/20 [History] Past Medical History HEENT History: Reports: Impaired Vision Cardiovascular History: Reports: Heart [place], [place] Respiratory History: Reports: Sleep Apnea Gastrointestinal History: Reports: None Genitourinary History: Reports: None Musculoskeletal History: Reports: None Neurological History: Reports: Speech Problems Psychiatric History: Reports: Anxiety, Bipolar, Schizophrenia Endocrine/Metabolic History: Reports: Diabetes, Type II Hematologic History: Reports: None Immunologic History: Reports: None Oncologic (Cancer) History: Reports: None Dermatologic History: Reports: None - Infectious Disease History Infectious Disease History: Reports: Mumps - Past Surgical History Head Surgeries/Procedures: Reports: None GI Surgical History: Reports: Appendectomy Social & Family History - Family History Family Medical History: No Pertinent Family History - Caffeine Use Caffeine Use: Reports: Tea ED ROS GENERAL - Review of Systems Review Of Systems: Comprehensive ROS is negative, except as noted in HPI. ED EXAM, GENERAL - Physical Exam Exam: See Below Exam Limited By: No Limitations General Appearance: Alert, WD/WN Eye Exam: Bilateral Eye: EOMI, PERRL Ear Exam: Bilateral Ear: TM normal Head: Atraumatic, Normocephalic Respiratory/Chest: No Respiratory Distress, Lungs Clear, Normal Breath Sounds Cardiovascular: Normal Peripheral Pulses, Regular Rate, Rhythm GI/Abdominal: Normal Bowel Sounds, Soft, Non-Tender Extremities: Normal Range of Motion Neurological: Alert, Oriented Course - Vital Signs Last Recorded V/S: Last Vital Signs Temp 98.2 F 10/14/20 18:15 Pulse 85 10/14/20 18:15 Resp 18 10/14/20 18:15 BP 108/75 10/14/20 18:15 Pulse Ox 96 10/14/20 18:15 Departure - Departure Time of Disposition: 19:00 Disposition: Home, Self-Care 01 Clinical Impression: General medical examination - Discharge Information *PRESCRIPTION DRUG MONITORING PROGRAM REVIEWED*: Not Applicable *COPY OF PRESCRIPTION DRUG MONITORING REPORT IN PATIENT DARRICK: Not Applicable Instructions: Medical Screening Exam Referrals: PCP,Unknown [Primary Care Provider] - Forms: ED Department Discharge - Assessment/Plan Assessment:: Patient is a 60-year-old male who presents today for evaluation. Patient just requested to be admitted to hospital patient himself does not have any complaints when asked patient denied every complaint I asked. Patient from previous no seems to be a frequent flyer gets lonely at home. Patient denies any SI/HI.
[2020-10-14 19:13] VITALS: BP 108/75; PULSE 85
== END 2020-10-14 19:30 | disposition home or self-care (01) ==
LOC: MW.ED 17:56
DX: Z00.00 Encounter for general adult medical examination without abnormal findings (principal); I25.2 Old myocardial infarction; E11.9 Type 2 diabetes mellitus without complications; Z88.8 Allergy status to other drugs, medicaments and biological substances; Z79.82 Long term (current) use of aspirin; Z79.84 Long term (current) use of oral hypoglycemic drugs; Z79.899 Other long term (current) drug therapy
CPT/HCPCS: 99281; 99283

== ENCOUNTER 2021-03-28 03:42 | Emergency (ER) | payer MEDICARE ==
[2021-03-28] MEDS ORDERED: Ketorolac 30 MG/ML SDV IM ONE (04:07)
--- NOTE | 2021-03-28 04:10 | EDM.PDOC ---
ED HPI GENERAL MEDICAL PROBLEM - General Chief Complaint: Headache Stated Complaint: HEADACHE Time Seen by Provider: 03/28/21 03:48 - History of Present Illness INITIAL COMMENTS - FREE TEXT/NARRATIVE: History of present illness: [] Patient has a severe headache that started just about an hour ago. It is in the occipital area. He says the back of his head hurts. He has no other symptoms. He has no nausea and vomiting. There is no photophobia. The patient has no injury. He denies having headache like in the past but his mother has a history of migraines. Review of systems: As per history of present illness and below otherwise all systems reviewed and negative. Past medical history: As per history of present illness and as reviewed below otherwise noncontributory. Surgical history: As per history of present illness and as reviewed below otherwise noncontributory. Social history: No reported history of drug or alcohol abuse. Family history: As per history of present illness and as reviewed below otherwise noncontributory. Physical exam: Constitutional - well developed, well-nourished and in no acute distress HEENT -tenderness in the posterior neck superiormost junction of the neck and the occiput. Able to flex her neck without trouble and Kernig sign is negative. Normocephalic, no evidence of trauma - external nose and mouth normal - no mass in neck and no JVD - mucosae moist EYES - full EOM, PERRL, no icterus - no evidence of inflammation, injection, or drainage Respiratory - no respiratory distress, equal bilateral expansion, lungs clear to auscultation and no abnormal lung sounds Cardiovascular - Regular Rhythm with S1 and S2 appreciated and no murmur, gallop or rub. GI - abdomen soft without distension or organomegaly - normal bowel sounds - no guard or rebound Musculoskeletal no gross deformity of long bones or joints - no tenderness, swelling or edema Neurologic - Alert and oriented times four - CN II-XII grossly intact - motor sensory and coordination symmetrically normal Psychiatric - appropriate mood and affect with normal thought content Hematologic - No petechiae or purpura - mucosa appropriate color and sclera not pale - normal nail bed color and refill Integument - no rash or evidence of trauma - normal turgor Diagnostics: [] Therapeutics: [] Impression: [] Plan: [] Definitive disposition and diagnosis as appropriate pending reevaluation and r monyiew of above. Treatments AIRPORT MAINTENANCE CHIEF: Reports: IV/IO, Other Medication(s), Other (see below) Other Treatments AIRPORT MAINTENANCE CHIEF: 30 mg toradol, 500 mL bolus NS Headache Pain Score (Numeric/FACES): 6 - Related Data Allergies Allergy/AdvReac Type Severity Reaction Status Date / Time methylphenidate HCl Allergy Anxiety Verified 03/28/21 03:50 [From Ritalin] thioridazine HCl Allergy Anxiety Verified 03/28/21 03:50 [From Mellaril] Home Meds: Home Meds Sertraline [Zoloft] 100 mg PO BEDTIME 02/25/14 [History] ziprasidone HCL [Geodon] 100 mg PO BEDTIME 02/25/14 [History] Divalproex Sodium [Depakote ER] 250 mg PO BEDTIME 10/28/14 [History] metFORMIN [Glucophage XR] 1,000 mg PO WITHDINNER 07/07/16 [History] Aspirin 81 mg PO DAILY 10/14/20 [History] Benztropine [Cogentin] 2 mg PO BID 10/14/20 [History] Divalproex Sodium [Depakote] 1,000 mg PO DAILY 10/14/20 [History] Meloxicam 7.5 mg PO DAILY 10/14/20 [History] Tamsulosin [Flomax] 0.4 mg PO DAILY 10/14/20 [History] atorvaSTATin [Lipitor] 20 mg PO DAILY 10/14/20 [History] Cyclobenzaprine [Flexeril] 10 mg PO TID PRN #15 tab 03/28/21 [Rx] Past Medical History HEENT History: Reports: Impaired Vision Cardiovascular History: Reports: Heart [place], [place] Respiratory History: Reports: Sleep Apnea Gastrointestinal History: Reports: None Genitourinary History: Reports: None Musculoskeletal History: Reports: None Neurological History: Reports: Speech Problems Psychiatric History: Reports: Anxiety, Bipolar, Schizophrenia Endocrine/Metabolic History: Reports: Diabetes, Type II Hematologic History: Reports: None Immunologic History: Reports: None Oncologic (Cancer) History: Reports: None Dermatologic History: Reports: None - Infectious Disease History Infectious Disease History: Reports: Mumps - Past Surgical History Head Surgeries/Procedures: Reports: None HEENT Surgical History: Reports: None Cardiovascular Surgical History: Reports: None Respiratory Surgical History: Reports: None GI Surgical History: Reports: Appendectomy Male Surgical History: Reports: None Endocrine Surgical History: Reports: None Neurological Surgical History: Reports: None Musculoskeletal Surgical History: Reports: None Dermatological Surgical History: Reports: None Social & Family History - Family History Family Medical History: No Pertinent Family History - Tobacco Use Tobacco Use Status *Q: Never Tobacco User Second Hand Smoke Exposure: No - Caffeine Use Caffeine Use: Reports: None - Recreational Drug Use Recreational Drug Use: No ED ROS GENERAL - Review of Systems Review Of Systems: Comprehensive ROS is negative, except as noted in HPI. ED EXAM, GENERAL - Physical Exam Exam: See Below Free Text/Narrative:: My physical exam is in the HPI Course - Vital Signs Last Recorded V/S: Last Vital Signs Temp 36.2 C 03/28/21 03:45 Pulse 72 03/28/21 05:18 Resp 16 03/28/21 05:18 BP 122/70 03/28/21 05:18 Pulse Ox 95 03/28/21 05:18 - Orders/Labs/Meds Meds: Medications Discontinued Medications Generic Name Dose Route Start Last Admin Trade Name Juana PRN Reason Stop Dose Admin Ketorolac Tromethamine 30 mg 03/28/21 04:07 03/28/21 04:21 Ketorolac 30 Mg/Ml Sdv IM 03/28/21 04:08 Not Given ONETIME ONE Departure - Departure Time of Disposition: 05:30 Disposition: Home, Self-Care 01 Condition: Good Clinical Impression: Neck pain, Headache, Cervical disc disease - Discharge Information Instructions: Cervicogenic Headache Referrals: PCP,None [Primary Care Provider] - Forms: ED Department Discharge Additional Instructions: Put heat to your neck. Have someone review your medicines. I think it might be advantageous to replace your meloxicam with a short course of steroids but since you do not know if you are on meloxicam and it is 5:30 in the morning and I can check your medication list you need to follow-up with your primary doctor Myah Costello [facility] - Primary Care [address] [place] [id number] [address] [address] The following information is given to patients seen in the emergency department who are being discharged to home. This information is to outline your options for follow-up care. We provide all patients seen in our emergency department with a follow-up referral. The need for follow-up, as well as the timing and circumstances, are variable depending upon the specifics of your emergency department visit. If you don't have a primary care physician on staff, we will provide you with a referral. We always advise you to contact your personal physician following an emergency department visit to inform them of the circumstance of the visit and for follow-up with them and/or the need for any referrals to a consulting specialist. The emergency department will also refer you to a specialist when appropriate. This referral assures that you have the opportunity for follow-up care with a specialist. All of these measure are taken in an effort to provide you with optimal care, which includes your follow-up. Under all circumstances we always encourage you to contact your private physician who remains a resource for coordinating your care. When calling for follow-up care, please make the office aware that this follow-up is from your recent emergency room visit. If for any reason you are refused follow-up, please contact the [facility] Emergency Department at and asked to speak to the emergency department charge nurse. Sepsis Event Note (ED) - Evaluation Sepsis Screening Result: No Definite Risk - Focused Exam Vital Signs: Vital Signs Temp Pulse Resp BP Pulse Ox 03/28/21 05:18 72 16 122/70 95 03/28/21 03:45 36.2 C 87 16 136/112 H 95
--- NOTE | 2021-03-28 05:07 | CT ---
INDICATION: Headache. COMPARISON: 02/06/2019 TECHNIQUE: CT examination of the head was performed with 5 mm thick axial and 2.5 millimeter thick sagittal and coronal sections without intravenous contrast. Images were obtained from the vertex of the skull through the skull base, and I examined the images with the brain and bone windows. Please note that all CT scans at this facility use dose modulation, iterative reconstruction, and/or weight-based dosing when appropriate to reduce radiation dose to as low as reasonably achievable. FINDINGS: The brain is normal in appearance for the patient`s age on today`s study, with no sign of mass lesion, mass effect, hemorrhage, or edema. There is stable moderate dilatation of the ventricles and sulci representing moderate, age-appropriate atrophy. Again seen is a small calcification in the right posterior mid cerebellar hemisphere uncertain etiology. Again seen is a tiny old infarct in the periphery of the left posterior-lateral cerebellar hemisphere in the SCA territory. The visualized portions of the orbits are normal in appearance. The visualized paranasal sinuses and mastoids are clear. The osseous structures are normal in their appearance with no sign of abnormality in the skull base or calvarium. IMPRESSION: No sign of acute injury to the brain. Nothing seen to correlate with the history of headache. Stable moderate, age-appropriate atrophy. 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 Please note that all CT scans at this facility use dose modulation, iterative reconstruction, and/or weight-based dosing when appropriate to reduce radiation dose to as low as reasonably achievable. Dictated by Oscar Kenney MD @ 03/28/2021 5:05:[address] Oscar Kenney @ Mar 28 2021 5:05AM
--- NOTE | 2021-03-28 05:15 | CT ---
INDICATION: Neck pain COMPARISON: CT of the cervical spine from 02/06/2019 TECHNIQUE: CT examination of the cervical spine is performed without contrast using spiral technique. 2 mm thick axial, sagittal and coronal reconstructions were made. Please note that all CT scans at this facility use dose modulation, iterative reconstruction, and/or weight-based dosing when appropriate to reduce radiation dose to as low as reasonably achievable. FINDINGS: : There is stable minimal anterior subluxation of C4 on C5 which is probably degenerative, associated with moderate left facet arthropathy. The C4-5 disc space remains normal in height. There is stable moderate left foraminal stenosis from facet hypertrophy. The right neural foramen remains widely patent. The rest of the cervical vertebral bodies are in anatomic alignment. There is no sign of prevertebral soft tissue swelling. There is no sign of fracture of the vertebral bodies or posterior elements. There is stable moderate C3-4 disc degenerative disease with stable moderate diffuse disc bulging which may come in contact with the anterior cervical cord, but is probably not prominent enough to result in spinal stenosis. There is stable severe right foraminal stenosis from lateral disc bulging into the neural foramina along with uncovertebral and facet hypertrophy. On the left, there is stable mild foraminal stenosis from uncovertebral and facet joint hypertrophy. There is stable moderate C5-6 disc degenerative disease. Stable moderate bilateral foraminal stenosis from uncovertebral joint hypertrophy. There is stable mild diffuse disc bulging at C6-7 without spinal stenosis. The C6-7 disc space remains normal in height. Stable severe right and moderate left foraminal stenosis from There is stable mild atlantodental primary osteoarthritis. The airway structures are normal in appearance. The visualized skull base is normal in appearance. The visualized inferior brain is normal in appearance for the patient`s age. The apices of the lungs are clear. IMPRESSION: No sign of acute osseous injury to the cervical spine. Stable minimal anterior subluxation of C4 on C5, probably degenerative. Stable severe right C3-4 and right C6-7 foraminal stenosis. Please note that all CT scans at this facility use dose modulation, iterative reconstruction, and/or weight-based dosing when appropriate to reduce radiation dose to as low as reasonably achievable. Dictated by Oscar Kenney MD @ 03/28/2021 5:14:[address] Oscar Kenney @ Mar 28 2021 5:14AM
[2021-03-28 05:19] VITALS: BP 122/70; PULSE 72
== END 2021-03-28 05:45 | disposition home or self-care (01) ==
LOC: MW.ED 03:42
DX: R51.9 Headache, unspecified (principal); M50.821 Other cervical disc disorders at C4-C5 level; E11.9 Type 2 diabetes mellitus without complications; Z79.82 Long term (current) use of aspirin; Z79.84 Long term (current) use of oral hypoglycemic drugs; Z88.5 Allergy status to narcotic agent; Z88.8 Allergy status to other drugs, medicaments and biological substances
CPT/HCPCS: 70450; 70450-26; 72125; 72125-26; 99283; 99284-25

== ENCOUNTER 2021-08-18 18:05 | Emergency (ER) | payer MEDICARE ==
--- NOTE | 2021-08-18 18:17 | EDM.PDOC ---
ED HPI GENERAL MEDICAL PROBLEM - General Stated Complaint: EMS ARRIVAL Time Seen by Provider: 08/18/21 18:16 Source of Information: Reports: Patient, EMS History Limitations: Reports: No Limitations - History of Present Illness INITIAL COMMENTS - FREE TEXT/NARRATIVE: HISTORY AND PHYSICAL: History of present illness: Patient is a 60-year-old male who is brought to the emergency room by EMS with complaints of sinus congestion. He states he did attempt to come to the emergency room yesterday as he was having sinus congestion and wanted his cholesterol checked. He states we were too busy so he left before being seen. Last night he attempted to use his CPAP machine but was restless due to "my nose was so stuffy". He decided to call EMS today to be evaluated quicker. Patient denies any fever, chills, headache, change in vision, syncope or near syncope. Denies any chest pain, back pain, shortness of breath or cough. Denies any abdominal pain, nausea, vomiting, diarrhea, constipation or dysuria. Has not noted any blood in urine or stool. Patient has been eating and drinking appropriately. No recent travel or sick contacts. Review of systems: As per history of present illness and below otherwise all systems reviewed and negative. Past medical history: As per history of present illness and as reviewed below otherwise noncontributory. Surgical history: As per history of present illness and as reviewed below otherwise noncontributory. Social history: See social history for further information Family history: As per history of present illness and as reviewed below otherwise non contributory. Physical exam: General: Well developed and well nourished. Alert and orientated x 3. Nontoxic in appearance and in no acute distress. Vital signs are stable and have been reviewed by me. Nursing notes were reviewed. HEENT: Atraumatic, normocephalic, pupils equal and reactive bilaterally, negative for conjunctival pallor or scleral icterus, mucous membranes moist, TMs normal bilaterally, throat clear, neck supple, nontender, trachea midline. No drooling or trismus noted. No meningeal signs. No hot potato voice noted. Lungs: Clear to auscultation bilaterally. No wheezes, rales, or rhonchi. Chest nontender. Normal work of breathing, no accessory muscles used. Heart: S1S2, regular rate and rhythm without overt murmur, gallops, or rubs. No JVD. No peripheral edema Abdomen: Soft, nondistended, nontender. Normoactive bowel sounds. Negative for masses or costovertebral tenderness. Skin: Intact, warm, dry. No lesions or rashes noted. Hematologic: No petechiae or purpra. Mucosa appropriate color and normal nail bed color and refill. Extremities: Atraumatic, moves all extremities per self without difficulty or deficits, negative for cords or calf pain. Neurovascular unremarkable. Neuro: Awake, alert, oriented. Cranial nerves II through XII unremarkable. Cerebellum unremarkable. Motor and sensory unremarkable throughout. Exam nonfocal. Psychiatric: Mood and affect are appropriate. Normal thought process. Answering questions appropriately. Please note that the patient was seen and evaluated during the 2019 SARS-CoV-2 novel coronavirus pandemic period. Community viral transmission is ongoing at time of this encounter and the emergency department is operating under pandemic response procedures. Medical Decision Making: Patient is a 60-year-old male who has multiple mental health issues. He states initially he called EMS as he felt emotional. During my physical exam and assessment of him he states he is here for sinus congestion. He is requesting somebody blow his nose and clean it out for him. His vital signs are stable. We will do some basic lab work and a COVID-19 swab. He has no maxillary or frontal sinus tenderness to palpation. Physical exam is otherwise unremarkable. Lab work is unremarkable. I have talked with the patient about today's findings, in addition to providing specific details for plan of care. Reassessment at the time of disposition demonstrates that the patient is in no acute distress. The patient is stable for discharge, counseling was provided and we discussed in great detail signs and symptoms that would prompt them to return to the Emergency Department. Medication, follow up and supportive care measures were reviewed and discussed. Voices understanding and is agreeable to plan of care. Denies any further questions or concerns at this time. Diagnostics: CBC, CMP, COVID-19 Therapeutics: Nasacort Prescription: None Impression: Viral upper respiratory illness Plan: 1. You were evaluated today on an emergent basis. Your lab work and COVID-19 screening are unremarkable. You can use [id number]-[id number] products to help with your sinus congestion such as Mucinex or nasal spray. 2. You can alternate Tylenol and ibuprofen as needed for pain and fever management. 3. We encourage you to follow up with your primary care provider and/or recommended specialist in the next few days for re-evaluation and further care/management. 4. If your symptoms should worsen, new symptoms develop or any of the signs and symptoms we discussed should arise please return to the emergency room or call 911 (if needed). Definitive disposition and diagnosis as appropriate pending reevaluation and review of above. - Related Data Allergies Allergy/AdvReac Type Severity Reaction Status Date / Time methylphenidate HCl Allergy Anxiety Verified 08/18/21 18:18 [From Ritalin] thioridazine HCl Allergy Anxiety Verified 08/18/21 18:18 [From Mellaril] Home Meds: Home Meds Sertraline [Zoloft] 100 mg PO BEDTIME 02/25/14 [History] ziprasidone HCL [Geodon] 100 mg PO BEDTIME 02/25/14 [History] Divalproex Sodium [Depakote ER] 250 mg PO BEDTIME 10/28/14 [History] Aspirin 81 mg PO DAILY 10/14/20 [History] Benztropine [Cogentin] 2 mg PO BID 10/14/20 [History] Divalproex Sodium [Depakote] 1,000 mg PO DAILY 10/14/20 [History] Meloxicam 7.5 mg PO DAILY 10/14/20 [History] Tamsulosin [Flomax] 0.4 mg PO DAILY 10/14/20 [History] atorvaSTATin [Lipitor] 20 mg PO DAILY 10/14/20 [History] Past Medical History HEENT History: Reports: Impaired Vision Cardiovascular History: Reports: Heart Murmur, NE Respiratory History: Reports: Sleep Apnea Gastrointestinal History: Reports: None Genitourinary History: Reports: None Musculoskeletal History: Reports: None Neurological History: Reports: Speech Problems Psychiatric History: Reports: Anxiety, Bipolar, Schizophrenia Endocrine/Metabolic History: Reports: Diabetes, Type II Hematologic History: Reports: None Immunologic History: Reports: None Oncologic (Cancer) History: Reports: None Dermatologic History: Reports: None - Infectious Disease History Infectious Disease History: Reports: Mumps - Past Surgical History Head Surgeries/Procedures: Reports: None HEENT Surgical History: Reports: None Cardiovascular Surgical History: Reports: None Respiratory Surgical History: Reports: None GI Surgical History: Reports: Appendectomy Male Surgical History: Reports: None Endocrine Surgical History: Reports: None Neurological Surgical History: Reports: None Musculoskeletal Surgical History: Reports: None Dermatological Surgical History: Reports: None Social & Family History - Family History Family Medical History: No Pertinent Family History - Caffeine Use Caffeine Use: Reports: None ED ROS GENERAL - Review of Systems Review Of Systems: Comprehensive ROS is negative, except as noted in HPI. ED EXAM, GENERAL - Physical Exam Exam: See Below (See dictation) Course - Vital Signs Last Recorded V/S: Last Vital Signs Temp 97.1 F 08/18/21 18:21 Pulse 72 08/18/21 20:00 Resp 18 08/18/21 20:00 BP 122/78 08/18/21 20:00 Pulse Ox 97 08/18/21 20:00 - Orders/Labs/Meds Orders: Active Orders 24 hr Category Date Time Status Mometasone Furoate [Nasonex [place]] Med 08/18/21 19:45 Active 1 gm CAROLINE DAILY Medication Orders Mometasone Furoate (Mometasone Furoate Nasal [place] 17 Gm Canister) 1 gm CAROLINE DAILY VALENCIA Labs: Laboratory Tests 08/18/21 08/18/21 08/18/21 Range/Units 18:35 18:35 18:54 WBC 7.08 (4.0-11.0) K/uL RBC 4.64 (4.50-5.90) M/uL Hgb 14.2 (13.0-17.0) g/dL Hct 41.3 (38.0-50.0) % MCV 89.0 (80.0-98.0) fL MCH 30.6 (27.0-32.0) pg MCHC 34.4 (31.0-37.0) g/dL RDW Std Deviation 42.5 (28.0-62.0) fl RDW Coeff of Ernie 13 (11.0-15.0) % Plt Count 168 (150-400) K/uL MPV 10.10 (7.40-12.00) fL Neut % (Auto) 54.5 (48.0-80.0) % Lymph % (Auto) 30.8 (16.0-40.0) % Clarke % (Auto) 13.4 (0.0-15.0) % Eos % (Auto) 1.0 (0.0-7.0) % Baso % (Auto) 0.3 (0.0-1.5) % Neut # (Auto) 3.9 (1.4-5.7) K/uL Lymph # (Auto) 2.2 (0.6-2.4) K/uL Clarke # (Auto) 1.0 H (0.0-0.8) K/uL Eos # (Auto) 0.1 (0.0-0.7) K/uL Baso # (Auto) 0.0 (0.0-0.1) K/uL Nucleated RBC % 0.0 /100WBC Nucleated RBCs # 0 K/uL Sodium 140 (136-148) mmol/L Potassium 3.9 (3.5-5.1) mmol/L Chloride 106 (98-107) mmol/L Carbon Dioxide 21.3 (21.0-32.0) mmol/L BUN 25 H (7.0-18.0) mg/dL Creatinine 0.9 (0.8-1.3) mg/dL Est Cr Clr Drug Dosing TNP Estimated GFR (MDRD) > 60.0 ml/min Glucose 102 (74-106) mg/dL Calcium 8.5 (8.5-10.1) mg/dL Total Bilirubin 0.6 (0.2-1.0) mg/dL AST 21 (15-37) IU/L ALT 25 (14-63) IU/L Alkaline Phosphatase 92 (46-116) U/L Total Protein 7.7 (6.4-8.2) g/dL Albumin 3.8 (3.4-5.0) g/dL Globulin 3.9 (2.6-4.0) g/dL Albumin/Globulin Ratio 1.0 (0.9-1.6) SARS-CoV-2 RNA (JES) NEGATIVE (NEGATIVE) Meds: Medications Generic Name Dose Route Start Last Admin Trade Name Freq PRN Reason Stop Dose Admin Mometasone Furoate 1 gm 08/18/21 19:45 Mometasone Furoate Nasal [place] 17 Gm Canister CAROLINE DAILY VALENCIA Departure - Departure Time of Disposition: 19:33 Disposition: Home, Self-Care 01 Clinical Impression: Viral illness - Discharge Information Forms: ED Department Discharge Additional Instructions: The following information is given to patients seen in the emergency department who are being discharged to home. This information is to outline your options for follow-up care. We provide all patients seen in our emergency department with a follow-up referral. The need for follow-up, as well as the timing and circumstances, are variable depending upon the specifics of your emergency department visit. If you don't have a primary care physician on staff, we will provide you with a referral. We always advise you to contact your personal physician following an emergency department visit to inform them of the circumstance of the visit and for follow-up with them and/or the need for any referrals to a consulting specialist. The emergency department will also refer you to a specialist when appropriate. This referral assures that you have the opportunity for follow-up care with a specialist. All of these measure are taken in an effort to provide you with optimal care, which includes your follow-up. Under all circumstances we always encourage you to contact your private physician who remains a resource for coordinating your care. When calling for follow-up care, please make the office aware that this follow-up is from your recent emergency room visit. If for any reason you are refused follow-up, please contact the [facility] Emergency Department at and asked to speak to the emergency department charge nurse. [facility] [address] [place] [address] [address] Thank you for choosing the [facility] emergency department in [place] for your medical needs today. It was a pleasure caring for you. Today you were seen in the emergency department for sinus congestion. 1. You were evaluated today on an emergent basis. Your lab work and COVID-19 screening are unremarkable. You can use yeyz-aqu-pketkwe products to help with your sinus congestion such as Mucinex or nasal spray. 2. You can alternate Tylenol and ibuprofen as needed for pain and fever management. 3. We encourage you to follow up with your primary care provider and/or recommended specialist in the next few days for re-evaluation and further care/management. 4. If your symptoms should worsen, new symptoms develop or any of the signs and symptoms we discussed should arise please return to the emergency room or call 911 (if needed). Sepsis Event Note (ED) - Focused Exam Vital Signs: Vital Signs Temp Pulse Resp BP Pulse Ox 08/18/21 20:00 72 18 122/78 97 08/18/21 18:21 97.1 F 87 16 128/78 97 - My Orders Last 24 Hours: My Active Orders 08/18/21 19:45 Mometasone Furoate [Nasonex [place]] 1 gm CAROLINE DAILY - Assessment/Plan Last 24 Hours: My Active Orders 08/18/21 19:45 Mometasone Furoate [Nasonex [place]] 1 gm CAROLINE DAILY
[2021-08-18 19:19] LABS: BLOOD UREA NITROGEN,BUN 25 mg/dL (7.0-18.0); CARBON DIOXIDE,CO2 21.3 mmol/L (21.0-32.0); CHLORIDE,CL 106 mmol/L (98-107); GLUCOSE RANDOM 102 mg/dL (74-106); POTASSIUM,K 3.9 mmol/L (3.5-5.1); SODIUM,NA 140 mmol/L (136-148)
[2021-08-18] MEDS ORDERED: Mometasone Furoate Nasal Spray 17 GM Canister NAS SCH (19:45)
[2021-08-18 20:01] VITALS: BP 122/78; PULSE 72
[2021-08-18] MEDS ORDERED: Oxymetazoline 0.05% Nasal Spray 15 ML Bottle NAS ONE (20:17)
== END 2021-08-18 20:26 | disposition home or self-care (01) ==
LOC: MW.ED 18:05
DX: J39.8 Other specified diseases of upper respiratory tract (principal); I25.2 Old myocardial infarction; E11.9 Type 2 diabetes mellitus without complications; Z88.8 Allergy status to other drugs, medicaments and biological substances; Z79.82 Long term (current) use of aspirin; Z79.899 Other long term (current) drug therapy; Z20.822 Contact with and (suspected) exposure to COVID-19
CPT/HCPCS: 36415; 80053; 85025; 99283; U0002

== ENCOUNTER 2021-12-19 14:47 | Emergency (ER) | payer MEDICARE, MEDICAID ==
[2021-12-19 15:25] VITALS: BP 117/72; PULSE 89
== END 2021-12-19 17:00 | disposition home or self-care (01) ==
LOC: MW.ED 14:47
DX: R19.7 Diarrhea, unspecified (principal); E11.9 Type 2 diabetes mellitus without complications; Z88.8 Allergy status to other drugs, medicaments and biological substances; Z79.82 Long term (current) use of aspirin; Z79.899 Other long term (current) drug therapy
CPT/HCPCS: 99283

== ENCOUNTER 2022-01-05 09:12 | Day surgery (SDC) | payer MEDICARE, MEDICAID ==
[~2022-01-05 09:12] MED LIST: Albuterol 0.083% 2.5 MG/3 ML Neb Soln NEB PRN; HYDROmorphone 1 MG/ML Syringe IVPUSH PRN; Lactated Ringers 1,000 ML IV SCH; Metoclopramide 10 MG/2 ML SDV IVPUSH PRN; Morphine 4 MG/ML VIAL IVPUSH PRN; Naloxone 0.4 MG/ML SDV IVPUSH PRN; Ondansetron 4 MG/2 ML SDV IVPUSH PRN; ceFAZolin 2 GM in Premix Bag 1 BAG IV ONE; fentaNYL 100 MCG/2 ML SDV IVPUSH PRN
[2022-01-05] MEDS ORDERED: Propofol 200 MG/20 ML SDV ONE (10:02)
[2022-01-05] MEDS ORDERED: fentaNYL 100 MCG/2 ML SDV ONE (10:02)
[2022-01-05] MEDS ORDERED: Bupivacaine 0.5% 30 ML SDV ONE (10:36)
[2022-01-05] MEDS ORDERED: ceFAZolin 1 GM Vial ONE ×2 (10:36→10:37)
[2022-01-05] MEDS ORDERED: Ropivacaine 0.5% 5 MG/ML 30 ML SDV ONE (10:51)
[2022-01-05] MEDS ORDERED: Dexmedetomidine 200 MCG/2 ML SDV ONE (10:56)
[2022-01-05] MEDS ORDERED: Esmolol 100 MG/10 ML SDV ONE (10:56)
[2022-01-05] MEDS ORDERED: Rocuronium Bromide 50 MG/5 ML Syringe ONE (10:56)
[2022-01-05] MEDS ORDERED: Dexamethasone 4 MG/ML 5 ML MDV ONE (10:56)
[2022-01-05] MEDS ORDERED: ePHEDrine 50 MG/ML SDV ONE (12:22)
[2022-01-05] MEDS ORDERED: Sugammadex Sodium 200 MG/2 ML VIAL ONE (12:38)
[2022-01-05] MEDS ORDERED: Ketorolac 30 MG/ML SDV ONE (12:38)
[2022-01-05] MEDS ORDERED: Ondansetron 4 MG/2 ML SDV ONE (12:38)
[2022-01-05] MEDS ORDERED: Acetaminophen/HYDROcodone 325-5 MG Tab PO PRN (13:07)
[2022-01-05] MEDS ORDERED: Lactated Ringers 1,000 ML IV SCH (13:15)
[2022-01-05 14:16] VITALS: BP 118/62; PULSE 71
== END 2022-01-05 14:46 | disposition home or self-care (01) ==
LOC: MW.SDS 09:12
PROVIDERS: ATTEND Surgery
DX: K42.0 Umbilical hernia with obstruction, without gangrene (principal); E66.9 Obesity, unspecified; G47.33 Obstructive sleep apnea (adult) (pediatric); E11.9 Type 2 diabetes mellitus without complications; E78.00 Pure hypercholesterolemia, unspecified; Z88.8 Allergy status to other drugs, medicaments and biological substances; Z79.82 Long term (current) use of aspirin; Z79.899 Other long term (current) drug therapy; Z90.49 Acquired absence of other specified parts of digestive tract; Z98.890 Other specified postprocedural states
CPT/HCPCS: 49587; 82947; J0131; J0690; J1100; J1885; J2405; J2704; J2795; J3010; J3490; J7120; 00750; 64488

== ENCOUNTER 2022-01-18 16:09 | Emergency (ER) | payer MEDICARE, MEDICAID ==
[2022-01-18 17:07] LABS: BLOOD UREA NITROGEN,BUN 11 mg/dL (7.0-18.0); CARBON DIOXIDE,CO2 22.2 mmol/L (21.0-32.0); CHLORIDE,CL 103 mmol/L (98-107); GLUCOSE RANDOM 101 mg/dL (74-106); POTASSIUM,K 3.9 mmol/L (3.5-5.1); SODIUM,NA 136 mmol/L (136-148)
[2022-01-18 18:12] VITALS: BP 117/68; PULSE 78
== END 2022-01-18 17:42 | disposition home or self-care (01) ==
LOC: MW.ED 16:09
DX: F32.9 Major depressive disorder, single episode, unspecified (principal); E78.00 Pure hypercholesterolemia, unspecified; E11.9 Type 2 diabetes mellitus without complications; E66.9 Obesity, unspecified; Z68.30 Body mass index [BMI] 30.0-30.9, adult; Z90.49 Acquired absence of other specified parts of digestive tract; Z79.899 Other long term (current) drug therapy; Z79.82 Long term (current) use of aspirin; Z88.8 Allergy status to other drugs, medicaments and biological substances
CPT/HCPCS: 36415; 80053; 85025; 99283; 99284

== ENCOUNTER 2022-01-25 06:33 | Emergency (ER) | payer MEDICARE, MEDICAID ==
[2022-01-25 06:37] VITALS: BP 114/71; PULSE 79
[2022-01-25 07:49] LABS: BLOOD UREA NITROGEN,BUN 20 mg/dL (7.0-18.0); CARBON DIOXIDE,CO2 22.8 mmol/L (21.0-32.0); CHLORIDE,CL 103 mmol/L (98-107); GLUCOSE RANDOM 134 mg/dL (74-106); POTASSIUM,K 3.7 mmol/L (3.5-5.1); SODIUM,NA 137 mmol/L (136-148)
== END 2022-01-25 08:50 | disposition home or self-care (01) ==
LOC: MW.ED 06:33
DX: R86.8 Other abnormal findings in specimens from male genital organs (principal); E11.9 Type 2 diabetes mellitus without complications; E66.9 Obesity, unspecified; Z79.899 Other long term (current) drug therapy; Z88.8 Allergy status to other drugs, medicaments and biological substances
CPT/HCPCS: 36415; 80053; 81003; 82550; 85025; 99283; 99284-25

== ENCOUNTER 2022-01-27 19:49 | Emergency (ER) | payer MEDICARE, MEDICAID ==
[2022-01-27 21:20] VITALS: BP 136/73; PULSE 81
== END 2022-01-27 21:24 | disposition home or self-care (01) ==
LOC: MW.ED 19:49
DX: Z13.9 Encounter for screening, unspecified (principal); E11.9 Type 2 diabetes mellitus without complications; E78.00 Pure hypercholesterolemia, unspecified; F32.A Depression, unspecified; E66.9 Obesity, unspecified; Z68.29 Body mass index [BMI] 29.0-29.9, adult; Z79.82 Long term (current) use of aspirin; Z79.899 Other long term (current) drug therapy; Z88.8 Allergy status to other drugs, medicaments and biological substances
CPT/HCPCS: 99282; 99283

== ENCOUNTER 2022-02-14 14:37 | Emergency (ER) | payer MEDICARE, MEDICAID ==
[2022-02-14 14:50] VITALS: BP 110/71; PULSE 79
[2022-02-14] MEDS ORDERED: Ibuprofen 600 MG Tab PO ONE (14:59)
== END 2022-02-14 15:10 | disposition home or self-care (01) ==
LOC: MW.ED 14:37
DX: S63.612A Unspecified sprain of right middle finger, initial encounter (principal); E78.00 Pure hypercholesterolemia, unspecified; E11.9 Type 2 diabetes mellitus without complications; E66.9 Obesity, unspecified; Z68.30 Body mass index [BMI] 30.0-30.9, adult; Z90.49 Acquired absence of other specified parts of digestive tract; Z79.899 Other long term (current) drug therapy; Z79.82 Long term (current) use of aspirin; Z88.8 Allergy status to other drugs, medicaments and biological substances; X58.XXXA Exposure to other specified factors, initial encounter
CPT/HCPCS: 73130-26-RT; 73130-RT; 99283-25; A9270-GY

== ENCOUNTER 2022-02-22 14:30 | Emergency (ER) | payer MEDICARE, MEDICAID | END 2022-02-22 15:00 | disposition left against medical advice (07) | LOC: MW.ED 14:30 | DX: Z53.21 Procedure and treatment not carried out due to patient leaving prior to being seen by health care provider (principal) ==

== ENCOUNTER 2022-04-04 15:55 | Emergency (ER) | payer MEDICARE, MEDICAID ==
[2022-04-04 17:53] VITALS: BP 117/77; PULSE 86
[2022-04-04] MEDS ORDERED: Ondansetron 4 MG Tab.DIS PO ONE (18:22)
[2022-04-04 19:23] LABS: CORONAVIRUS COVID-19 NAA NEGATIVE (NEGATIVE); INFLUENZA A NAA NEGATIVE (NEGATIVE); INFLUENZA B NAA NEGATIVE (NEGATIVE)
[2022-04-04 19:44] LABS: CARBON DIOXIDE,CO2 24.7 mmol/L (21.0-32.0); POTASSIUM,K 4.2 mmol/L (3.5-5.1)
== END 2022-04-04 21:16 | disposition home or self-care (01) ==
LOC: MW.ED 15:55
DX: R11.10 Vomiting, unspecified (principal); E11.9 Type 2 diabetes mellitus without complications; N40.0 Benign prostatic hyperplasia without lower urinary tract symptoms; E66.9 Obesity, unspecified; Z68.31 Body mass index [BMI] 31.0-31.9, adult; Z88.8 Allergy status to other drugs, medicaments and biological substances; Z79.82 Long term (current) use of aspirin; Z79.899 Other long term (current) drug therapy; Z20.822 Contact with and (suspected) exposure to COVID-19
CPT/HCPCS: 0240U; 36415; 71045; 80053; 84484; 85025; 93005; 99284; A9270; 93010

== ENCOUNTER 2022-04-11 02:28 | Emergency (ER) | payer MEDICARE, MEDICAID ==
[2022-04-11] MEDS ORDERED: Acetaminophen 325 MG Tab PO ONE (02:37)
[2022-04-11] MEDS ORDERED: Ibuprofen 600 MG Tab PO ONE (04:05)
[2022-04-11 04:17] VITALS: BP 101/62; PULSE 80
== END 2022-04-11 04:15 | disposition home or self-care (01) ==
LOC: MW.ED 02:28
DX: M54.2 Cervicalgia (principal); M43.6 Torticollis; E78.00 Pure hypercholesterolemia, unspecified; E11.9 Type 2 diabetes mellitus without complications; E66.9 Obesity, unspecified; Z68.28 Body mass index [BMI] 28.0-28.9, adult; Z88.8 Allergy status to other drugs, medicaments and biological substances; Z79.899 Other long term (current) drug therapy; Z79.82 Long term (current) use of aspirin; Z90.49 Acquired absence of other specified parts of digestive tract
CPT/HCPCS: 99283; A9270

== ENCOUNTER 2022-04-11 23:00 | Emergency (ER) | payer MEDICARE, MEDICAID ==
[2022-04-12] MEDS ORDERED: Acetaminophen 325 MG Tab PO STA (01:21)
[2022-04-12 06:58] VITALS: BP 119/68; PULSE 83
== END 2022-04-12 02:36 | disposition left against medical advice (07) ==
LOC: MW.ED 23:00
DX: Z53.21 Procedure and treatment not carried out due to patient leaving prior to being seen by health care provider (principal)
CPT/HCPCS: A9270-GY

== ENCOUNTER 2022-04-23 02:10 | Emergency (ER) | payer MEDICARE, MEDICAID ==
[2022-04-23 02:21] VITALS: BP 151/71; PULSE 97
== END 2022-04-23 02:51 | disposition home or self-care (01) ==
LOC: MW.ED 02:10
DX: G47.00 Insomnia, unspecified (principal); E66.9 Obesity, unspecified; Z68.30 Body mass index [BMI] 30.0-30.9, adult; Z88.8 Allergy status to other drugs, medicaments and biological substances; Z79.899 Other long term (current) drug therapy; Z79.82 Long term (current) use of aspirin; Z90.49 Acquired absence of other specified parts of digestive tract
CPT/HCPCS: 51798; 99283

== ENCOUNTER 2022-04-23 03:42 | Emergency (ER) | payer OTHER, MEDICARE, MEDICAID ==
[2022-04-23] MEDS ORDERED: Octyl 2-Cyanoacrylate 1 Tube TOP ONE (03:43)
[2022-04-23 03:45] VITALS: BP 120/74; PULSE 77
== END 2022-04-23 03:52 | disposition home or self-care (01) ==
LOC: MW.ED 03:42
DX: S01.112A Laceration without foreign body of left eyelid and periocular area, initial encounter (principal); E78.00 Pure hypercholesterolemia, unspecified; E11.9 Type 2 diabetes mellitus without complications; E66.9 Obesity, unspecified; G47.00 Insomnia, unspecified; Z68.30 Body mass index [BMI] 30.0-30.9, adult; Z88.8 Allergy status to other drugs, medicaments and biological substances; Z79.82 Long term (current) use of aspirin; Z79.899 Other long term (current) drug therapy; Z90.49 Acquired absence of other specified parts of digestive tract; V29.9XXA Motorcycle rider (driver) (passenger) injured in unspecified traffic accident, initial encounter; Y93.55 Activity, bike riding
CPT/HCPCS: 12011; 51798; 99283; 99284; A9270

== ENCOUNTER 2022-04-25 18:49 | Emergency (ER) | payer MEDICARE, MEDICAID ==
[2022-04-25] MEDS ORDERED: Sulfamethoxazole/Trimethoprim 800-160 MG Tab PO ONE (20:41)
[2022-04-26 01:01] VITALS: BP 115/64; PULSE 60
== END 2022-04-25 21:09 | disposition home or self-care (01) ==
LOC: MW.ED 18:49
DX: N39.0 Urinary tract infection, site not specified (principal); E78.00 Pure hypercholesterolemia, unspecified; E11.9 Type 2 diabetes mellitus without complications; N40.0 Benign prostatic hyperplasia without lower urinary tract symptoms; E66.9 Obesity, unspecified; Z68.30 Body mass index [BMI] 30.0-30.9, adult; Z88.8 Allergy status to other drugs, medicaments and biological substances; Z79.82 Long term (current) use of aspirin; Z79.899 Other long term (current) drug therapy
CPT/HCPCS: 81001; 87086; 99283; A9270

== ENCOUNTER 2022-04-26 05:12 | Emergency (ER) | payer MEDICARE, MEDICAID ==
[2022-04-26] MEDS ORDERED: Sulfamethoxazole/Trimethoprim 800-160 MG Tab PO ONE (05:55)
[2022-04-26 06:22] LABS: ACETAMINOPHEN <2.0 ug/mL; BLOOD UREA NITROGEN,BUN 15 mg/dL (7.0-18.0); CARBON DIOXIDE,CO2 25.1 mmol/L (21.0-32.0); CHLORIDE,CL 101 mmol/L (98-107); GLUCOSE RANDOM 104 mg/dL (74-106); POTASSIUM,K 3.4 mmol/L (3.5-5.1); SODIUM,NA 135 mmol/L (136-148)
[2022-04-26 06:28] LABS: ESTIMATED GFR 96 mL/min (>60)
[2022-04-26] MEDS ORDERED: Ziprasidone HCl 20 MG Cap PO STA (08:18)
[2022-04-26 09:03] VITALS: BP 148/84; PULSE 112
== END 2022-04-26 09:10 ==
LOC: MW.ED 05:12
DX: F99 Mental disorder, not otherwise specified (principal); E11.9 Type 2 diabetes mellitus without complications; E66.9 Obesity, unspecified; Z68.30 Body mass index [BMI] 30.0-30.9, adult; Z88.8 Allergy status to other drugs, medicaments and biological substances; Z79.899 Other long term (current) drug therapy; Z79.82 Long term (current) use of aspirin; Z90.49 Acquired absence of other specified parts of digestive tract; Z20.822 Contact with and (suspected) exposure to COVID-19
CPT/HCPCS: 36415; 80053; 80143; 80179; 80305; 80307; 81003; 83735; 84439; 84443; 84481; 85025; 93005; 99285; A9270; U0002; 93010; 99284

== ENCOUNTER 2022-07-05 16:34 | Emergency (ER) | payer MEDICARE, MEDICAID ==
[2022-07-05 17:02] VITALS: BP 121/64; PULSE 80
== END 2022-07-05 17:16 | disposition left against medical advice (07) ==
LOC: MW.ED 16:34
DX: Z53.21 Procedure and treatment not carried out due to patient leaving prior to being seen by health care provider (principal)

== ENCOUNTER 2022-07-21 00:04 | Emergency (ER) | payer MEDICARE, MEDICAID ==
[2022-07-21 01:05] LABS: CORONAVIRUS COVID-19 NAA NEGATIVE (NEGATIVE); INFLUENZA A NAA NEGATIVE (NEGATIVE); INFLUENZA B NAA NEGATIVE (NEGATIVE)
[2022-07-21 01:55] VITALS: BP 117/72; PULSE 81
== END 2022-07-21 01:48 | disposition home or self-care (01) ==
LOC: MW.ED 00:04
DX: B34.9 Viral infection, unspecified (principal); E78.00 Pure hypercholesterolemia, unspecified; E11.9 Type 2 diabetes mellitus without complications; N40.0 Benign prostatic hyperplasia without lower urinary tract symptoms; E66.9 Obesity, unspecified; Z68.32 Body mass index [BMI] 32.0-32.9, adult; Z88.8 Allergy status to other drugs, medicaments and biological substances; Z79.82 Long term (current) use of aspirin; Z79.899 Other long term (current) drug therapy; Z20.822 Contact with and (suspected) exposure to COVID-19
CPT/HCPCS: 0240U; 87651; 99283; 99282

== ENCOUNTER 2022-08-29 10:36 | Emergency (ER) | payer MEDICARE, MEDICAID ==
[2022-08-29] MEDS ORDERED: Ibuprofen 600 MG Tab PO ONE (10:54)
[2022-08-29 11:55] LABS: CORONAVIRUS COVID-19 NAA NEGATIVE (NEGATIVE); INFLUENZA A NAA NEGATIVE (NEGATIVE); INFLUENZA B NAA NEGATIVE (NEGATIVE)
[2022-08-29 12:26] VITALS: BP 108/65; PULSE 75
== END 2022-08-29 12:25 | disposition home or self-care (01) ==
LOC: MW.ED 10:36
DX: R51.9 Headache, unspecified (principal); E78.00 Pure hypercholesterolemia, unspecified; E11.9 Type 2 diabetes mellitus without complications; E66.9 Obesity, unspecified; Z68.33 Body mass index [BMI] 33.0-33.9, adult; Z88.8 Allergy status to other drugs, medicaments and biological substances; Z79.82 Long term (current) use of aspirin; Z79.899 Other long term (current) drug therapy; Z20.822 Contact with and (suspected) exposure to COVID-19
CPT/HCPCS: 0240U; 70450; 82947; 99284; A9270

== ENCOUNTER 2022-10-03 15:09 | Emergency (ER) | payer MEDICARE, MEDICAID ==
[2022-10-03 17:03] VITALS: BP 150/71; PULSE 98
== END 2022-10-03 17:36 | disposition left against medical advice (07) ==
LOC: MW.ED 15:09
DX: Z53.21 Procedure and treatment not carried out due to patient leaving prior to being seen by health care provider (principal)

== ENCOUNTER 2022-10-04 10:42 | Emergency (ER) | payer MEDICARE, MEDICAID ==
[2022-10-04 13:23] VITALS: BP 132/87; PULSE 88
== END 2022-10-04 13:23 | disposition home or self-care (01) ==
LOC: MW.ED 10:42
DX: M79.675 Pain in left toe(s) (principal); E78.00 Pure hypercholesterolemia, unspecified; E11.9 Type 2 diabetes mellitus without complications; E66.9 Obesity, unspecified; Z68.33 Body mass index [BMI] 33.0-33.9, adult; Z88.8 Allergy status to other drugs, medicaments and biological substances; Z79.899 Other long term (current) drug therapy; Z79.82 Long term (current) use of aspirin; Z90.49 Acquired absence of other specified parts of digestive tract
CPT/HCPCS: 73630-26-LT; 73630-LT; 99283

== ENCOUNTER 2023-02-20 16:46 | Emergency (ER) | payer MEDICARE, MEDICAID ==
[2023-02-20 17:27] VITALS: BP 128/66; PULSE 85
== END 2023-02-20 17:28 | disposition left against medical advice (07) ==
LOC: MW.ED 16:46
DX: Z53.21 Procedure and treatment not carried out due to patient leaving prior to being seen by health care provider (principal)

== ENCOUNTER 2023-03-12 20:54 | Emergency (ER) | payer MEDICARE, MEDICAID ==
[2023-03-12] MEDS ORDERED: Cephalexin 500 MG Cap PO ONE (21:51)
[2023-03-12] MEDS ORDERED: Bacitracin Oint 1 GM U/D Packet TOP ONE (21:52)
[2023-03-12 22:11] VITALS: BP 131/75; PULSE 85
== END 2023-03-12 22:08 | disposition home or self-care (01) ==
LOC: MW.ED 20:54
DX: L03.032 Cellulitis of left toe (principal); V18.2XXA Unspecified pedal cyclist injured in noncollision transport accident in nontraffic accident, initial encounter
CPT/HCPCS: 73660; 99283; A9270

== ENCOUNTER 2023-03-21 13:41 | Emergency (ER) | payer MEDICARE, MEDICAID ==
[2023-03-21] MEDS ORDERED: Bacitracin Oint 1 GM U/D Packet TOP STA (14:05)
[2023-03-21 15:06] VITALS: BP 110/65; PULSE 65
== END 2023-03-21 15:05 | disposition home or self-care (01) ==
LOC: MW.ED 13:41
DX: S80.812A Abrasion, left lower leg, initial encounter (principal); E78.00 Pure hypercholesterolemia, unspecified; E11.9 Type 2 diabetes mellitus without complications; E66.9 Obesity, unspecified; Z88.8 Allergy status to other drugs, medicaments and biological substances; Z79.82 Long term (current) use of aspirin; Z79.899 Other long term (current) drug therapy; W25.XXXA Contact with sharp glass, initial encounter
CPT/HCPCS: 99283

== ENCOUNTER 2023-08-08 13:34 | Emergency (ER) | payer MEDICARE, MEDICAID ==
[2023-08-08 14:47] VITALS: BP 154/86; PULSE 79
== END 2023-08-08 14:48 | disposition home or self-care (01) ==
LOC: MW.ED 13:34
DX: B36.8 Other specified superficial mycoses (principal); E78.00 Pure hypercholesterolemia, unspecified; E11.9 Type 2 diabetes mellitus without complications; E66.9 Obesity, unspecified; Z68.35 Body mass index [BMI] 35.0-35.9, adult; Z79.82 Long term (current) use of aspirin; Z79.899 Other long term (current) drug therapy; Z88.8 Allergy status to other drugs, medicaments and biological substances; Z90.49 Acquired absence of other specified parts of digestive tract
CPT/HCPCS: 99282; 99283

== ENCOUNTER 2023-09-02 19:30 | Emergency (ER) | payer MEDICARE, MEDICAID ==
[2023-09-02 20:32] LABS: CORONAVIRUS COVID-19 NAA POSITIVE (NEGATIVE); INFLUENZA A NAA NEGATIVE (NEGATIVE); INFLUENZA B NAA NEGATIVE (NEGATIVE); RESPIRATORY SYNCYTIAL VIR NAA NEGATIVE (NEGATIVE)
[2023-09-02] MEDS ORDERED: Nirmatrelvir/Ritonavir 300 MG/100 MG Dose Pack PO SCH (21:15)
[2023-09-02] MEDS ORDERED: Doxycycline 100 MG Cap PO STA (21:21)
[2023-09-02 21:46] VITALS: BP 147/86; PULSE 84
== END 2023-09-02 21:45 | disposition home or self-care (01) ==
LOC: MW.ED 19:30
DX: U07.1 COVID-19 (principal); J12.82 Pneumonia due to coronavirus disease 2019; E78.00 Pure hypercholesterolemia, unspecified; E11.9 Type 2 diabetes mellitus without complications; E66.9 Obesity, unspecified; Z68.36 Body mass index [BMI] 36.0-36.9, adult; Z90.49 Acquired absence of other specified parts of digestive tract; Z79.899 Other long term (current) drug therapy; Z79.82 Long term (current) use of aspirin; Z88.8 Allergy status to other drugs, medicaments and biological substances
CPT/HCPCS: 0241U; 71046; 99283; A9270

== ENCOUNTER 2023-09-03 01:02 | Emergency (ER) | payer MEDICARE, MEDICAID ==
[2023-09-03] MEDS ORDERED: Melatonin 3 MG Tab ONE (01:41)
[2023-09-03 01:57] VITALS: BP 122/67; PULSE 68
[2023-09-03] MEDS ORDERED: Melatonin 3 MG Tab PO SCH (21:00)
== END 2023-09-03 01:52 | disposition home or self-care (01) ==
LOC: MW.ED 01:02
DX: G47.00 Insomnia, unspecified (principal); E78.00 Pure hypercholesterolemia, unspecified; E11.9 Type 2 diabetes mellitus without complications; E66.9 Obesity, unspecified; Z90.49 Acquired absence of other specified parts of digestive tract; Z88.8 Allergy status to other drugs, medicaments and biological substances; Z79.82 Long term (current) use of aspirin; Z79.899 Other long term (current) drug therapy
CPT/HCPCS: 99283; A9270; 99282

== ENCOUNTER 2023-09-08 23:00 | Emergency (ER) | payer MEDICARE, MEDICAID ==
[2023-09-08] MEDS ORDERED: Sodium Chloride 0.9% 10 ML Syringe FLUSH PRN (23:13)
[2023-09-08] MEDS ORDERED: Sodium Chloride 0.9% 1,000 ML IV ONE (23:13)
[2023-09-08] MEDS ORDERED: Sodium Chloride 0.9% 2.5 ML Syringe FLUSH PRN (23:13)
[2023-09-08] MEDS ORDERED: Loperamide 2 MG Cap PO STA (23:14)
[2023-09-08 23:27] LABS: BASOPHILS ABSOLUTE AUTO 0.03 K/uL (0.00-0.20); BASOPHILS PERCENT AUTO 0.3 % (0.0-1.0); EOSINOPHILS ABSOLUTE AUTO 0.25 K/uL (0.00-0.45); EOSINOPHILS PERCENT AUTO 2.8 % (0.0-6.0); HEMATOCRIT 41.8 % (42.0-52.0); HEMOGLOBIN 14.6 g/dL (14.0-18.0); IMMATURE GRAN ABSOLUTE AUTO 0.02 K/uL (0.00-0.05); IMMATURE GRAN PERCENT AUTO 0.2 % (0.0-0.4); LYMPHOCYTES ABSOLUTE AUTO 4.31 K/uL (1.00-4.80); LYMPHOCYTES PERCENT AUTO 48.7 % (24.0-44.0); MEAN CORPUSCULAR HEMOGLOBIN 31.1 pg (28.0-32.0); MEAN CORPUSCULAR HGB CONC 34.9 g/dL (32.0-36.0); MEAN CORPUSCULAR VOLUME 89.1 fL (83.0-99.0); MEAN PLATELET VOLUME 9.1 fL (9.4-12.4); MONOCYTES PERCENT AUTO 7.9 % (0.0-8.0); NEUTROPHILS ABSOLUTE AUTO 3.54 K/uL (1.80-7.70); NEUTROPHILS PERCENT AUTO 40.1 % (41.0-71.0); PLATELET COUNT,PLT 213 K/uL (150-400); RED BLOOD CELL COUNT 4.69 M/uL (4.52-5.90); WHITE BLOOD CELL COUNT,WBC 8.85 K/uL (3.9-11.3)
[2023-09-08 23:38] LABS: A/G RATIO 0.9 (0.9-1.6); ALBUMIN 3.4 g/dL (3.4-5.0); BILIRUBIN TOTAL 0.5 mg/dL (0.2-1.0); CREATININE 1.3 mg/dL (0.8-1.3); EST CRCL DRUG DOSING (CG) 64.02 mL/min; MAGNESIUM 1.6 mg/dL (1.8-2.4); POTASSIUM,K 3.7 mmol/L (3.5-5.1); PROTEIN TOTAL,TP 7.3 g/dL (6.4-8.2)
[2023-09-09] MEDS ORDERED: Magnesium Sulfate/Water 2 GM in Premix Bag 1 BAG IV ONE (00:02)
[2023-09-09] MEDS ORDERED: Acetaminophen 500 MG Tab PO STA (01:50)
[2023-09-09 02:05] VITALS: BP 126/74; PULSE 82
== END 2023-09-09 02:05 | disposition home or self-care (01) ==
LOC: MW.ED 23:00
DX: R19.7 Diarrhea, unspecified (principal); E11.9 Type 2 diabetes mellitus without complications; E66.9 Obesity, unspecified; E78.00 Pure hypercholesterolemia, unspecified; Z79.899 Other long term (current) drug therapy; Z79.82 Long term (current) use of aspirin; Z88.8 Allergy status to other drugs, medicaments and biological substances; Z68.33 Body mass index [BMI] 33.0-33.9, adult; Z86.16 Personal history of COVID-19
CPT/HCPCS: 36415; 80053; 83735; 85025; 93005; 96361; 96365; 99285; A9270; J3475; J3490; J7030; 93010; 99283

== ENCOUNTER 2023-09-17 22:50 | Emergency (ER) | payer MEDICARE, MEDICAID ==
[2023-09-18 02:40] VITALS: BP 136/80; PULSE 84
== END 2023-09-18 02:42 | disposition home or self-care (01) ==
LOC: MW.ED 22:50
DX: R19.7 Diarrhea, unspecified (principal); J06.9 Acute upper respiratory infection, unspecified; E78.00 Pure hypercholesterolemia, unspecified; E11.9 Type 2 diabetes mellitus without complications; E66.9 Obesity, unspecified; Z90.49 Acquired absence of other specified parts of digestive tract; Z79.899 Other long term (current) drug therapy; Z88.8 Allergy status to other drugs, medicaments and biological substances; Z68.33 Body mass index [BMI] 33.0-33.9, adult
CPT/HCPCS: 71046; 71046-26; 99283; 99284

== ENCOUNTER 2023-11-09 02:12 | Emergency (ER) | payer MEDICARE, MEDICAID ==
[2023-11-09 11:44] LABS: BASOPHILS ABSOLUTE AUTO 0.04 K/uL (0.00-0.20); BASOPHILS PERCENT AUTO 0.4 % (0.0-1.0); HEMATOCRIT 39.5 % (42.0-52.0); HEMOGLOBIN 13.8 g/dL (14.0-18.0); IMMATURE GRAN ABSOLUTE AUTO 0.06 K/uL (0.00-0.05); IMMATURE GRAN PERCENT AUTO 0.6 % (0.0-0.4); LYMPHOCYTES ABSOLUTE AUTO 3.51 K/uL (1.00-4.80); LYMPHOCYTES PERCENT AUTO 35.7 % (24.0-44.0); MEAN CORPUSCULAR HGB CONC 34.9 g/dL (32.0-36.0); MEAN CORPUSCULAR VOLUME 88.8 fL (83.0-99.0); MEAN PLATELET VOLUME 9.3 fL (9.4-12.4); MONOCYTES ABSOLUTE AUTO 1.18 K/uL (0.00-0.80); NEUTROPHILS ABSOLUTE AUTO 4.75 K/uL (1.80-7.70); NEUTROPHILS PERCENT AUTO 48.3 % (41.0-71.0); PLATELET COUNT,PLT 195 K/uL (150-400); RED BLOOD CELL COUNT 4.45 M/uL (4.52-5.90); WHITE BLOOD CELL COUNT,WBC 9.84 K/uL (3.9-11.3)
[2023-11-09 11:45] LABS: A/G RATIO 0.9 (0.9-1.6); ALANINE AMINOTRANSFERASE,ALT 22 IU/L (14-63); ALBUMIN 3.2 g/dL (3.4-5.0); ALKALINE PHOSPHATASE 94 U/L (46-116); ASPARTATE AMNIOTRANSFERASE,AST 13 IU/L (15-37); BILIRUBIN TOTAL 0.4 mg/dL (0.2-1.0); BLOOD UREA NITROGEN,BUN 19 mg/dL (7.0-18.0); CALCIUM 8.4 mg/dL (8.5-10.1); CARBON DIOXIDE,CO2 23.8 mmol/L (21.0-32.0); CHLORIDE,CL 102 mmol/L (98-107); CREATININE 1.1 mg/dL (0.8-1.3); ESTIMATED GFR 75 mL/min (>60); ETHANOL BLOOD MEDICAL < 3.0 mg/dL; GLUCOSE RANDOM 167 mg/dL (74-106); POTASSIUM,K 3.8 mmol/L (3.5-5.1); PROTEIN TOTAL,TP 6.8 g/dL (6.4-8.2); SODIUM,NA 138 mmol/L (136-148)
[2023-11-09] MEDS ORDERED: Iopamidol 755 MG/ML 500 ML Multipack Bottle IVPUSH STA (11:58)
[2023-11-09] MEDS: Iopamidol 755 MG/ML 500 ML Multipack Bottle IVPUSH STA (12:00)
[2023-11-09 13:06] VITALS: BP 122/74; PULSE 73
== END 2023-11-09 05:30 | disposition home or self-care (01) ==
LOC: MW.ED 02:12
DX: R42 Dizziness and giddiness (principal); H61.22 Impacted cerumen, left ear; H66.92 Otitis media, unspecified, left ear
CPT/HCPCS: 36415; 69209; 70450; 70496; 70498; 80053; 80307; 84484; 85025; 99285; J7030; Q9967

== ENCOUNTER 2023-12-18 20:00 | Emergency (ER) | payer MEDICARE, MEDICAID ==
[2023-12-18] MEDS: Acetaminophen 500 MG Tab PO ONE (20:12)
[2023-12-18] MEDS: Ibuprofen 600 MG Tab PO ONE (20:13)
[2023-12-18 20:47] VITALS: BP 116/70; PULSE 71
== END 2023-12-18 20:57 | disposition home or self-care (01) ==
LOC: MW.ED 20:00
DX: R51.9 Headache, unspecified (principal); G47.9 Sleep disorder, unspecified; E78.00 Pure hypercholesterolemia, unspecified; E11.9 Type 2 diabetes mellitus without complications; Z79.82 Long term (current) use of aspirin; Z79.899 Other long term (current) drug therapy; Z88.8 Allergy status to other drugs, medicaments and biological substances
CPT/HCPCS: 99283; A9270

== ENCOUNTER 2024-01-06 02:44 | Emergency (ER) | payer MEDICARE, MEDICAID ==
[2024-01-06 02:48] VITALS: BP 129/63; PULSE 89
[2024-01-06] MEDS: Ibuprofen 600 MG Tab PO ONE (02:49)
[2024-01-06] MEDS: Cephalexin 500 MG Cap PO ONE (02:50)
== END 2024-01-06 02:54 | disposition home or self-care (01) ==
LOC: MW.ED 02:44
DX: L03.221 Cellulitis of neck (principal); E78.00 Pure hypercholesterolemia, unspecified; E11.9 Type 2 diabetes mellitus without complications; Z88.8 Allergy status to other drugs, medicaments and biological substances; Z79.82 Long term (current) use of aspirin; Z79.899 Other long term (current) drug therapy; Z75.8 Other problems related to medical facilities and other health care
CPT/HCPCS: 99283; A9270

== ENCOUNTER 2024-01-08 01:22 | Emergency (ER) | payer MEDICARE, MEDICAID ==
[2024-01-08 01:43] VITALS: BP 133/67; PULSE 69
== END 2024-01-08 01:57 | disposition home or self-care (01) ==
LOC: MW.ED 01:22
DX: H92.01 Otalgia, right ear (principal); E78.00 Pure hypercholesterolemia, unspecified; E11.9 Type 2 diabetes mellitus without complications; Z90.49 Acquired absence of other specified parts of digestive tract; Z79.82 Long term (current) use of aspirin; Z79.899 Other long term (current) drug therapy; Z88.8 Allergy status to other drugs, medicaments and biological substances; Z75.8 Other problems related to medical facilities and other health care
CPT/HCPCS: 99283

== ENCOUNTER 2024-01-10 02:53 | Emergency (ER) | payer MEDICARE, MEDICAID ==
[2024-01-10] MEDS: Lidocaine 4% 1 each Patch TOP STA (03:27)
[2024-01-10] MEDS: Methocarbamol 750 MG Tab PO ONE (03:27)
[2024-01-10 03:34] VITALS: BP 116/71; PULSE 68
== END 2024-01-10 03:34 | disposition home or self-care (01) ==
LOC: MW.ED 02:53
DX: M54.2 Cervicalgia (principal); E78.00 Pure hypercholesterolemia, unspecified; E11.9 Type 2 diabetes mellitus without complications; E66.9 Obesity, unspecified; Z79.82 Long term (current) use of aspirin; Z79.899 Other long term (current) drug therapy; Z88.8 Allergy status to other drugs, medicaments and biological substances; Z75.8 Other problems related to medical facilities and other health care
CPT/HCPCS: 99283; A9270

== ENCOUNTER 2024-01-16 09:38 | Emergency (ER) | payer MEDICARE, MEDICAID ==
[2024-01-16 17:21] VITALS: BP 108/58; PULSE 80
== END 2024-01-16 12:23 | disposition home or self-care (01) ==
LOC: MW.ED 09:38
DX: S69.91XA Unspecified injury of right wrist, hand and finger(s), initial encounter (principal); E78.00 Pure hypercholesterolemia, unspecified; E11.9 Type 2 diabetes mellitus without complications; Z68.35 Body mass index [BMI] 35.0-35.9, adult; Z75.8 Other problems related to medical facilities and other health care; Z79.82 Long term (current) use of aspirin; Z88.8 Allergy status to other drugs, medicaments and biological substances; W10.9XXA Fall (on) (from) unspecified stairs and steps, initial encounter; Y93.01 Activity, walking, marching and hiking
CPT/HCPCS: 73140-26-F7; 73140-F7; 99282; 99283

== ENCOUNTER 2024-02-03 19:54 | Emergency (ER) | payer MEDICARE, MEDICAID ==
[2024-02-03 21:04] VITALS: BP 115/59; PULSE 90
[2024-02-03] MEDS: Lidocaine 4% 1 each Patch TOP SCH (21:23)
== END 2024-02-03 21:30 | disposition home or self-care (01) ==
LOC: MW.ED 19:54
DX: M25.561 Pain in right knee (principal); G89.29 Other chronic pain; E78.00 Pure hypercholesterolemia, unspecified; E11.9 Type 2 diabetes mellitus without complications; E66.9 Obesity, unspecified; Z75.8 Other problems related to medical facilities and other health care; Z88.8 Allergy status to other drugs, medicaments and biological substances; Z79.82 Long term (current) use of aspirin; Z79.899 Other long term (current) drug therapy; Z68.28 Body mass index [BMI] 28.0-28.9, adult
CPT/HCPCS: 99283; A9270

== ENCOUNTER 2024-02-05 13:21 | Emergency (ER) | payer MEDICARE, MEDICAID ==
[2024-02-05] MEDS: Ibuprofen 600 MG Tab PO ONE (14:23)
[2024-02-05 17:09] VITALS: BP 124/72; PULSE 65
== END 2024-02-05 15:00 | disposition home or self-care (01) ==
LOC: MW.ED 13:21
DX: M79.604 Pain in right leg (principal); E78.00 Pure hypercholesterolemia, unspecified; E11.9 Type 2 diabetes mellitus without complications; Z88.8 Allergy status to other drugs, medicaments and biological substances; Z79.82 Long term (current) use of aspirin; Z79.899 Other long term (current) drug therapy
CPT/HCPCS: 99283; A9270

== ENCOUNTER 2024-02-11 21:24 | Emergency (ER) | payer MEDICARE, MEDICAID ==
[2024-02-11] MEDS: Lidocaine 4% 1 each Patch TOP STA (21:42)
[2024-02-11] MEDS: Acetaminophen 500 MG Tab PO ONE (21:42)
[2024-02-11 22:24] VITALS: BP 110/72; PULSE 66
== END 2024-02-11 22:10 | disposition home or self-care (01) ==
LOC: MW.ED 21:24
DX: M79.661 Pain in right lower leg (principal); E78.00 Pure hypercholesterolemia, unspecified; E66.9 Obesity, unspecified; E11.9 Type 2 diabetes mellitus without complications; Z75.8 Other problems related to medical facilities and other health care; Z88.8 Allergy status to other drugs, medicaments and biological substances; Z79.82 Long term (current) use of aspirin; Z79.899 Other long term (current) drug therapy; Z90.49 Acquired absence of other specified parts of digestive tract; Z68.38 Body mass index [BMI] 38.0-38.9, adult
CPT/HCPCS: 99283; A9270

== ENCOUNTER 2024-05-13 11:05 | Emergency (ER) | payer MEDICARE, MEDICAID | END 2024-05-13 11:36 | disposition left against medical advice (07) | LOC: MW.ED 11:05 | DX: Z53.21 Procedure and treatment not carried out due to patient leaving prior to being seen by health care provider (principal) ==

== ENCOUNTER 2024-05-25 19:42 | Observation (INO) | payer MEDICARE, MEDICAID ==
[2024-05-25] MEDS ORDERED: Sodium Chloride 0.9% 2.5 ML Syringe FLUSH PRN (19:43)
[2024-05-25] MEDS ORDERED: Sodium Chloride 0.9% 10 ML Syringe FLUSH PRN (19:43)
[2024-05-25 20:10] LABS: BASOPHILS ABSOLUTE AUTO 0.02 K/uL (0.00-0.20); BASOPHILS PERCENT AUTO 0.2 % (0.0-1.0); EOSINOPHILS ABSOLUTE AUTO 0.26 K/uL (0.00-0.45); EOSINOPHILS PERCENT AUTO 2.3 % (0.0-6.0); IMMATURE GRAN ABSOLUTE AUTO 0.03 K/uL (0.00-0.05); IMMATURE GRAN PERCENT AUTO 0.3 % (0.0-0.4); LYMPHOCYTES ABSOLUTE AUTO 2.56 K/uL (1.00-4.80); LYMPHOCYTES PERCENT AUTO 23.1 % (24.0-44.0); MEAN CORPUSCULAR HGB CONC 34.1 g/dL (32.0-36.0); MEAN PLATELET VOLUME 9.2 fL (9.4-12.4); MONOCYTES ABSOLUTE AUTO 1.17 K/uL (0.00-0.80); MONOCYTES PERCENT AUTO 10.6 % (0.0-8.0); NEUTROPHILS ABSOLUTE AUTO 7.03 K/uL (1.80-7.70); NEUTROPHILS PERCENT AUTO 63.5 % (41.0-71.0); PLATELET COUNT,PLT 193 K/uL (150-400); WHITE BLOOD CELL COUNT,WBC 11.07 K/uL (3.9-11.3)
[2024-05-25 20:36] LABS: ALBUMIN 3.5 g/dL (3.4-5.0); BILIRUBIN TOTAL 0.7 mg/dL (0.2-1.0); CALCIUM 9.2 mg/dL (8.5-10.1); CREATININE 1.2 mg/dL (0.8-1.3); EST CRCL DRUG DOSING (CG) 67.36 mL/min; POTASSIUM,K 4.4 mmol/L (3.5-5.1); PROTEIN TOTAL,TP 7.1 g/dL (6.4-8.2)
[2024-05-25] MEDS: Iopamidol 755 MG/ML 500 ML Multipack Bottle IVPUSH STA (21:17)
[2024-05-26] MEDS: Apixaban 5 MG Tab PO ONE (00:01)
[2024-05-26 05:29] LABS: BASOPHILS ABSOLUTE AUTO 0.04 K/uL (0.00-0.20); BASOPHILS PERCENT AUTO 0.4 % (0.0-1.0); EOSINOPHILS ABSOLUTE AUTO 0.28 K/uL (0.00-0.45); EOSINOPHILS PERCENT AUTO 2.6 % (0.0-6.0); HEMATOCRIT 43.2 % (42.0-52.0); HEMOGLOBIN 14.6 g/dL (14.0-18.0); IMMATURE GRAN ABSOLUTE AUTO 0.03 K/uL (0.00-0.05); IMMATURE GRAN PERCENT AUTO 0.3 % (0.0-0.4); LYMPHOCYTES ABSOLUTE AUTO 3.27 K/uL (1.00-4.80); LYMPHOCYTES PERCENT AUTO 30.8 % (24.0-44.0); MEAN CORPUSCULAR HEMOGLOBIN 29.7 pg (28.0-32.0); MEAN CORPUSCULAR HGB CONC 33.8 g/dL (32.0-36.0); MEAN PLATELET VOLUME 9.1 fL (9.4-12.4); MONOCYTES ABSOLUTE AUTO 1.07 K/uL (0.00-0.80); MONOCYTES PERCENT AUTO 10.1 % (0.0-8.0); NEUTROPHILS ABSOLUTE AUTO 5.92 K/uL (1.80-7.70); NEUTROPHILS PERCENT AUTO 55.8 % (41.0-71.0); PLATELET COUNT,PLT 181 K/uL (150-400); RED BLOOD CELL COUNT 4.91 M/uL (4.52-5.90); WHITE BLOOD CELL COUNT,WBC 10.61 K/uL (3.9-11.3)
[2024-05-26 05:59] LABS: CALCIUM 8.8 mg/dL (8.5-10.1); CARBON DIOXIDE,CO2 25.6 mmol/L (21.0-32.0); EST CRCL DRUG DOSING (CG) 80.83 mL/min; POTASSIUM,K 4.3 mmol/L (3.5-5.1)
[2024-05-26] MEDS ORDERED: Sodium Chloride 0.9% 10 ML Syringe FLUSH PRN (09:15)
[2024-05-26] MEDS ORDERED: Sodium Chloride 0.9% 2.5 ML Syringe FLUSH PRN (09:15)
[2024-05-26] MEDS ORDERED: Ondansetron 4 MG/2 ML SDV IVPUSH PRN (09:15)
[2024-05-26] MEDS ORDERED: Sennosides/Docusate Sodium 50-8.6 MG Tab PO PRN (10:00)
[2024-05-26] MEDS ORDERED: Divalproex Sodium 500 MG Tab.ER PO SCH ×2 (10:00→21:00)
[2024-05-26] MEDS ORDERED: Docusate Sodium 100 MG Cap PO PRN (10:00)
[2024-05-26] MEDS: Acetaminophen 325 MG Tab PO PRN (10:21)
[2024-05-26] MEDS: Apixaban 5 MG Tab PO SCH (10:21)
[2024-05-26] MEDS: Tamsulosin 0.4 MG Cap.ER PO SCH (10:21)
[2024-05-26] MEDS: SOLIFENACIN SUCCINATE 5 MG PO SCH (10:22)
[2024-05-26] MEDS: Pantoprazole 40 MG in Sodium Chloride 0.9% 10 ML IVPUSH ONE (10:50)
[2024-05-26] MEDS: Alum Hydro/Mag Hydro/Simeth XS 15 ML, Lidocaine 2% 5 ML PO ONE (10:50)
[2024-05-26] MEDS: Furosemide 20 MG/2 ML VIAL IVPUSH ONE (10:50)
[2024-05-26 12:33] VITALS: BP 114/77; PULSE 88
[2024-05-26] MEDS ORDERED: Sertraline 100 MG Tab PO SCH (21:00)
[2024-05-26] MEDS ORDERED: atorvaSTATin 10 MG Tab PO SCH (21:00)
== END 2024-05-26 13:55 | disposition home or self-care (01) ==
LOC: MW.ED 19:42 → MW.MS 23:51 → MW.ED 05-26 00:36
PROVIDERS: ADMIT Internal Medicine; ATTEND Internal Medicine
DX: R07.9 Chest pain, unspecified (principal); I48.91 Unspecified atrial fibrillation; E11.9 Type 2 diabetes mellitus without complications; E78.00 Pure hypercholesterolemia, unspecified; E66.9 Obesity, unspecified; R79.89 Other specified abnormal findings of blood chemistry; G47.30 Sleep apnea, unspecified; F32.A Depression, unspecified; F20.0 Paranoid schizophrenia; Z88.8 Allergy status to other drugs, medicaments and biological substances; Z79.899 Other long term (current) drug therapy; Z79.01 Long term (current) use of anticoagulants; Z68.30 Body mass index [BMI] 30.0-30.9, adult
CPT/HCPCS: 36415; 71046; 71275; 80048; 80053; 83880; 84484; 85025; 93005; 93306; 96374; 96375; 99285; A9270; G0378; J1940; J2470; J3490; Q9967; 93010

== ENCOUNTER 2024-07-01 13:39 | Emergency (ER) | payer MEDICARE, MEDICAID ==
[2024-07-01 14:45] LABS: CORONAVIRUS COVID-19 NAA NEGATIVE (NEGATIVE); INFLUENZA A NAA NEGATIVE (NEGATIVE); INFLUENZA B NAA NEGATIVE (NEGATIVE)
[2024-07-01 14:51] VITALS: BP 101/66; PULSE 74
== END 2024-07-01 14:58 | disposition home or self-care (01) ==
LOC: MW.ED 13:39
DX: J06.9 Acute upper respiratory infection, unspecified (principal); E78.00 Pure hypercholesterolemia, unspecified; E66.9 Obesity, unspecified; Z79.899 Other long term (current) drug therapy; Z79.01 Long term (current) use of anticoagulants; Z88.8 Allergy status to other drugs, medicaments and biological substances; Z75.8 Other problems related to medical facilities and other health care; Z68.29 Body mass index [BMI] 29.0-29.9, adult
CPT/HCPCS: 0240U; 99283; 99284

== ENCOUNTER 2024-08-20 13:34 | Emergency (ER) | payer MEDICARE, MEDICAID ==
[2024-08-20 14:28] LABS: BASOPHILS ABSOLUTE AUTO 0.04 K/uL (0.00-0.20); BASOPHILS PERCENT AUTO 0.3 % (0.0-1.0); EOSINOPHILS ABSOLUTE AUTO 0.29 K/uL (0.00-0.45); EOSINOPHILS PERCENT AUTO 2.5 % (0.0-6.0); HEMATOCRIT 45.5 % (42.0-52.0); HEMOGLOBIN 15.7 g/dL (14.0-18.0); IMMATURE GRAN ABSOLUTE AUTO 0.03 K/uL (0.00-0.05); IMMATURE GRAN PERCENT AUTO 0.3 % (0.0-0.4); LYMPHOCYTES PERCENT AUTO 29.6 % (24.0-44.0); MEAN CORPUSCULAR HEMOGLOBIN 30.6 pg (28.0-32.0); MEAN CORPUSCULAR HGB CONC 34.5 g/dL (32.0-36.0); MEAN CORPUSCULAR VOLUME 88.7 fL (83.0-99.0); MEAN PLATELET VOLUME 9.3 fL (9.4-12.4); MONOCYTES ABSOLUTE AUTO 1.15 K/uL (0.00-0.80); MONOCYTES PERCENT AUTO 9.7 % (0.0-8.0); NEUTROPHILS ABSOLUTE AUTO 6.81 K/uL (1.80-7.70); NEUTROPHILS PERCENT AUTO 57.6 % (41.0-71.0); PLATELET COUNT,PLT 212 K/uL (150-400); RED BLOOD CELL COUNT 5.13 M/uL (4.52-5.90); WHITE BLOOD CELL COUNT,WBC 11.82 K/uL (3.9-11.3)
[2024-08-20 14:45] LABS: APPEARANCE,URINE CLEAR; BILIRUBIN,URINE NEGATIVE (NEGATIVE); COLOR,URINE YELLOW; GLUCOSE,URINE NEGATIVE (NEGATIVE); KETONES,URINE NEGATIVE (NEGATIVE); LEUKOCYTE ESTERASE,URINE NEGATIVE (NEGATIVE); NITRITE,URINE NEGATIVE (NEGATIVE); OCCULT BLOOD,URINE NEGATIVE (NEGATIVE); PROTEIN,URINE NEGATIVE (NEGATIVE); UROBILINOGEN,URINE 0.2 EU/dL (<2.0)
[2024-08-20 14:55] LABS: ALBUMIN 3.5 g/dL (3.4-5.0); BILIRUBIN TOTAL 0.5 mg/dL (0.2-1.0); CALCIUM 8.8 mg/dL (8.5-10.1); CARBON DIOXIDE,CO2 22.2 mmol/L (21.0-32.0); CREATININE 1.1 mg/dL (0.8-1.3); EST CRCL DRUG DOSING (CG) 75.66 mL/min; POTASSIUM,K 4.4 mmol/L (3.5-5.1); PROTEIN TOTAL,TP 7.1 g/dL (6.4-8.2)
[2024-08-20 17:13] VITALS: BP 121/67; PULSE 89
== END 2024-08-20 16:06 | disposition home or self-care (01) ==
LOC: MW.ED 13:34
DX: R42 Dizziness and giddiness (principal); R10.9 Unspecified abdominal pain; E78.00 Pure hypercholesterolemia, unspecified; E66.9 Obesity, unspecified; Z90.49 Acquired absence of other specified parts of digestive tract; Z88.8 Allergy status to other drugs, medicaments and biological substances; Z79.01 Long term (current) use of anticoagulants; Z79.899 Other long term (current) drug therapy; Z75.8 Other problems related to medical facilities and other health care; Z68.33 Body mass index [BMI] 33.0-33.9, adult
CPT/HCPCS: 36415; 80053; 81003; 83690; 84484; 85025; 93005; 99284

== ENCOUNTER 2024-09-02 11:28 | Emergency (ER) | payer MEDICARE, MEDICAID ==
[2024-09-02 11:50] VITALS: BP 115/69; PULSE 69
== END 2024-09-02 12:00 | disposition left against medical advice (07) ==
LOC: MW.ED 11:28
DX: Z53.21 Procedure and treatment not carried out due to patient leaving prior to being seen by health care provider (principal)

== ENCOUNTER 2024-09-03 12:28 | Emergency (ER) | payer MEDICARE, MEDICAID ==
[2024-09-03 12:43] VITALS: BP 116/69; PULSE 73
== END 2024-09-03 12:44 | disposition left against medical advice (07) ==
LOC: MW.ED 12:28
DX: Z01.30 Encounter for examination of blood pressure without abnormal findings (principal)
CPT/HCPCS: 99281

== ENCOUNTER 2024-09-26 02:06 | Emergency (ER) | payer MEDICARE, MEDICAID ==
[2024-09-26] MEDS: Acetaminophen 325 MG Tab PO ONE (02:41)
[2024-09-26 03:38] VITALS: BP 104/58; PULSE 85
== END 2024-09-26 04:08 | disposition other institution (70) ==
LOC: MW.ED 02:06
DX: R51.9 Headache, unspecified (principal); E78.00 Pure hypercholesterolemia, unspecified; E66.9 Obesity, unspecified; Z88.8 Allergy status to other drugs, medicaments and biological substances; Z79.899 Other long term (current) drug therapy; Z90.49 Acquired absence of other specified parts of digestive tract; Z68.34 Body mass index [BMI] 34.0-34.9, adult
CPT/HCPCS: 99284; A9270

== ENCOUNTER 2024-09-28 09:19 | Emergency (ER) | payer MEDICARE, MEDICAID ==
[2024-09-28 09:47] LABS: HEMATOCRIT 47.1 % (42.0-52.0); MEAN CORPUSCULAR HEMOGLOBIN 30.3 pg (28.0-32.0); MEAN CORPUSCULAR VOLUME 89.2 fL (83.0-99.0); PLATELET COUNT,PLT 194 K/uL (150-400); RED BLOOD CELL COUNT 5.28 M/uL (4.52-5.90); WHITE BLOOD CELL COUNT,WBC 8.33 K/uL (3.9-11.3)
[2024-09-28 10:04] LABS: LYMPHOCYTES ABSOLUTE MAN 2.17 K/uL (1.00-4.80); LYMPHOCYTES PERCENT MAN 26 % (24-44); MONOCYTES ABSOLUTE MAN 1.33 K/uL (0.00-0.80); MONOCYTES PERCENT MAN 16 % (0-8); SEG NEUTROPHILS ABSOLUTE MAN 4.83 K/uL (1.80-7.70); SEG NEUTROPHILS PERCENT MAN 58 % (41-71)
[2024-09-28 10:20] LABS: A/G RATIO 0.8 (0.9-1.6); ALANINE AMINOTRANSFERASE,ALT 27 IU/L (14-63); ALBUMIN 3.6 g/dL (3.4-5.0); ALKALINE PHOSPHATASE 147 U/L (46-116); ASPARTATE AMNIOTRANSFERASE,AST 23 IU/L (15-37); BILIRUBIN TOTAL 1.6 mg/dL (0.2-1.0); BLOOD UREA NITROGEN,BUN 13 mg/dL (7.0-18.0); CALCIUM 9.1 mg/dL (8.5-10.1); CARBON DIOXIDE,CO2 25.7 mmol/L (21.0-32.0); CHLORIDE,CL 101 mmol/L (98-107); CREATININE 1.1 mg/dL (0.8-1.3); GLUCOSE RANDOM 101 mg/dL (74-106); PROTEIN TOTAL,TP 8.1 g/dL (6.4-8.2); SODIUM,NA 136 mmol/L (136-148)
[2024-09-28 10:24] LABS: ESTIMATED GFR 74 mL/min (>60)
[2024-09-28 10:41] VITALS: BP 116/72; PULSE 84
== END 2024-09-28 10:45 | disposition home or self-care (01) ==
LOC: MW.ED 09:19
DX: U07.1 COVID-19 (principal); E78.00 Pure hypercholesterolemia, unspecified; E66.9 Obesity, unspecified; Z90.49 Acquired absence of other specified parts of digestive tract; Z79.899 Other long term (current) drug therapy; Z88.8 Allergy status to other drugs, medicaments and biological substances; Z75.8 Other problems related to medical facilities and other health care
CPT/HCPCS: 36415; 71045; 71045-26; 80053; 84484; 85025; 87428-QW; 93005; 99285

== ENCOUNTER 2024-10-14 10:24 | Emergency (ER) | payer MEDICARE, MEDICAID ==
[2024-10-14 11:18] VITALS: BP 101/58; PULSE 71
== END 2024-10-14 14:11 | disposition home or self-care (01) ==
LOC: MW.ED 10:24
DX: M25.522 Pain in left elbow (principal); M25.551 Pain in right hip; E78.00 Pure hypercholesterolemia, unspecified; E66.9 Obesity, unspecified; Z90.49 Acquired absence of other specified parts of digestive tract; Z79.899 Other long term (current) drug therapy; Z88.8 Allergy status to other drugs, medicaments and biological substances; Z75.8 Other problems related to medical facilities and other health care; Z68.21 Body mass index [BMI] 21.0-21.9, adult; W00.0XXA Fall on same level due to ice and snow, initial encounter
CPT/HCPCS: 73070-26-LT; 73070-LT; 73502-26-RT; 73502-RT; 99283

== ENCOUNTER 2024-11-05 11:07 | Emergency (ER) | payer MEDICARE, MEDICAID ==
[2024-11-05 11:15] VITALS: BP 134/93; PULSE 77
== END 2024-11-05 11:17 | disposition left against medical advice (07) ==
LOC: MW.ED 11:07
DX: Z53.21 Procedure and treatment not carried out due to patient leaving prior to being seen by health care provider (principal)

== ENCOUNTER 2024-11-05 12:21 | Emergency (ER) | payer MEDICARE, MEDICAID ==
[2024-11-05 13:42] VITALS: BP 108/63; PULSE 70
== END 2024-11-05 15:31 | disposition home or self-care (01) ==
LOC: MW.ED 12:21
DX: R09.89 Other specified symptoms and signs involving the circulatory and respiratory systems (principal); R09.81 Nasal congestion; E78.00 Pure hypercholesterolemia, unspecified; Z75.8 Other problems related to medical facilities and other health care; Z88.8 Allergy status to other drugs, medicaments and biological substances; Z79.01 Long term (current) use of anticoagulants; Z79.899 Other long term (current) drug therapy
CPT/HCPCS: 71045; 71045-26; 87428-QW; 99284

== ENCOUNTER 2024-11-18 18:30 | Emergency (ER) | payer MEDICAID, MEDICARE ==
[2024-11-18 20:47] LABS: BASOPHILS ABSOLUTE AUTO 0.04 K/uL (0.00-0.20); BASOPHILS PERCENT AUTO 0.4 % (0.0-1.0); EOSINOPHILS ABSOLUTE AUTO 0.23 K/uL (0.00-0.45); EOSINOPHILS PERCENT AUTO 2.3 % (0.0-6.0); HEMATOCRIT 44.5 % (42.0-52.0); HEMOGLOBIN 15.3 g/dL (14.0-18.0); IMMATURE GRAN ABSOLUTE AUTO 0.04 K/uL (0.00-0.05); IMMATURE GRAN PERCENT AUTO 0.4 % (0.0-0.4); LYMPHOCYTES ABSOLUTE AUTO 3.11 K/uL (1.00-4.80); LYMPHOCYTES PERCENT AUTO 30.5 % (24.0-44.0); MEAN CORPUSCULAR HEMOGLOBIN 30.1 pg (28.0-32.0); MEAN CORPUSCULAR HGB CONC 34.4 g/dL (32.0-36.0); MEAN CORPUSCULAR VOLUME 87.6 fL (83.0-99.0); MEAN PLATELET VOLUME 9.3 fL (9.4-12.4); MONOCYTES ABSOLUTE AUTO 0.94 K/uL (0.00-0.80); MONOCYTES PERCENT AUTO 9.2 % (0.0-8.0); NEUTROPHILS ABSOLUTE AUTO 5.83 K/uL (1.80-7.70); NEUTROPHILS PERCENT AUTO 57.2 % (41.0-71.0); PLATELET COUNT,PLT 226 K/uL (150-400); RED BLOOD CELL COUNT 5.08 M/uL (4.52-5.90); WHITE BLOOD CELL COUNT,WBC 10.19 K/uL (3.9-11.3)
[2024-11-18 21:12] LABS: ALBUMIN 3.8 g/dL (3.4-5.0); CALCIUM 9.2 mg/dL (8.5-10.1); CARBON DIOXIDE,CO2 22.2 mmol/L (21.0-32.0); CREATININE 1.1 mg/dL (0.8-1.3); EST CRCL DRUG DOSING (CG) 76.8 mL/min; POTASSIUM,K 4.4 mmol/L (3.5-5.1); PROTEIN TOTAL,TP 7.6 g/dL (6.4-8.2)
[2024-11-18] MEDS: Acetaminophen 500 MG Tab PO ONE (21:38)
[2024-11-19 03:42] VITALS: BP 128/81; PULSE 68
== END 2024-11-18 21:41 | disposition home or self-care (01) ==
LOC: MW.ED 18:30
DX: B34.9 Viral infection, unspecified (principal); E78.00 Pure hypercholesterolemia, unspecified; E66.9 Obesity, unspecified; Z90.49 Acquired absence of other specified parts of digestive tract; Z79.899 Other long term (current) drug therapy; Z88.8 Allergy status to other drugs, medicaments and biological substances; Z75.8 Other problems related to medical facilities and other health care; Z68.32 Body mass index [BMI] 32.0-32.9, adult
CPT/HCPCS: 36415; 80053; 83690; 85025; 99283; 99284

== ENCOUNTER 2024-11-25 12:06 | Emergency (ER) | payer MEDICAID ==
[2024-11-25 13:05] VITALS: BP 107/59; PULSE 72
== END 2024-11-25 12:49 | disposition home or self-care (01) ==
LOC: MW.ED 12:06
DX: Z13.1 Encounter for screening for diabetes mellitus (principal); Z88.8 Allergy status to other drugs, medicaments and biological substances; Z79.899 Other long term (current) drug therapy; E78.00 Pure hypercholesterolemia, unspecified; Z79.01 Long term (current) use of anticoagulants; Z75.8 Other problems related to medical facilities and other health care
CPT/HCPCS: 82947; 99283

== ENCOUNTER 2024-12-09 15:42 | Emergency (ER) | payer MEDICAID ==
[2024-12-09 16:22] VITALS: BP 114/64; PULSE 84
== END 2024-12-09 16:19 | disposition home or self-care (01) ==
LOC: MW.ED 15:42
DX: M79.604 Pain in right leg (principal); M79.605 Pain in left leg; E78.00 Pure hypercholesterolemia, unspecified; E66.9 Obesity, unspecified; Z68.34 Body mass index [BMI] 34.0-34.9, adult; Z90.49 Acquired absence of other specified parts of digestive tract; Z79.01 Long term (current) use of anticoagulants; Z79.899 Other long term (current) drug therapy
CPT/HCPCS: 82947; 99284

== ENCOUNTER 2025-01-07 14:37 | Emergency (ER) | payer MEDICARE, MEDICAID ==
[2025-01-07 15:27] VITALS: BP 110/66; PULSE 76
== END 2025-01-07 16:53 | disposition left against medical advice (07) ==
LOC: MW.ED 14:37
DX: Z53.21 Procedure and treatment not carried out due to patient leaving prior to being seen by health care provider (principal)
CPT/HCPCS: 87651

== ENCOUNTER 2025-02-06 20:28 | Emergency (ER) | payer MEDICARE, MEDICAID ==
[2025-02-06] MEDS ORDERED: Sodium Chloride 0.9% 10 ML Syringe FLUSH PRN (20:37)
[2025-02-06] MEDS ORDERED: Sodium Chloride 0.9% 2.5 ML Syringe FLUSH PRN (20:37)
[2025-02-06] MEDS: Sodium Chloride 0.9% 1,000 ML IV ONE (20:58)
[2025-02-06] MEDS: Ondansetron 4 MG/2 ML SDV IVPUSH ONE (20:59)
[2025-02-06 21:04] LABS: BASOPHILS ABSOLUTE AUTO 0.05 K/uL (0.00-0.20); BASOPHILS PERCENT AUTO 0.7 % (0.0-1.0); EOSINOPHILS ABSOLUTE AUTO 0.27 K/uL (0.00-0.45); HEMATOCRIT 43.3 % (42.0-52.0); IMMATURE GRAN ABSOLUTE AUTO 0.03 K/uL (0.00-0.05); IMMATURE GRAN PERCENT AUTO 0.4 % (0.0-0.4); LYMPHOCYTES ABSOLUTE AUTO 1.83 K/uL (1.00-4.80); LYMPHOCYTES PERCENT AUTO 27.1 % (24.0-44.0); MEAN CORPUSCULAR HEMOGLOBIN 30.5 pg (28.0-32.0); MEAN CORPUSCULAR HGB CONC 34.6 g/dL (32.0-36.0); MEAN PLATELET VOLUME 9.2 fL (9.4-12.4); MONOCYTES ABSOLUTE AUTO 1.29 K/uL (0.00-0.80); MONOCYTES PERCENT AUTO 19.1 % (0.0-8.0); NEUTROPHILS ABSOLUTE AUTO 3.29 K/uL (1.80-7.70); NEUTROPHILS PERCENT AUTO 48.7 % (41.0-71.0); PLATELET COUNT,PLT 174 K/uL (150-400); RED BLOOD CELL COUNT 4.92 M/uL (4.52-5.90); WHITE BLOOD CELL COUNT,WBC 6.76 K/uL (3.9-11.3)
[2025-02-06 21:29] LABS: A/G RATIO 1.1 (0.9-1.6); ALBUMIN 3.7 g/dL (3.4-5.0); BILIRUBIN TOTAL 0.8 mg/dL (0.2-1.0); CALCIUM 8.9 mg/dL (8.5-10.1); CARBON DIOXIDE,CO2 24.1 mmol/L (21.0-32.0); CREATININE 1.1 mg/dL (0.8-1.3); EST CRCL DRUG DOSING (CG) 74.65 mL/min; MAGNESIUM 1.6 mg/dL (1.8-2.4); PROTEIN TOTAL,TP 7.2 g/dL (6.4-8.2)
[2025-02-06 22:14] VITALS: BP 120/77; PULSE 78
== END 2025-02-06 22:10 | disposition home or self-care (01) ==
LOC: MW.ED 20:28
DX: R11.0 Nausea (principal); E78.00 Pure hypercholesterolemia, unspecified; Z75.3 Unavailability and inaccessibility of health-care facilities; Z88.8 Allergy status to other drugs, medicaments and biological substances; Z79.899 Other long term (current) drug therapy; Z79.01 Long term (current) use of anticoagulants
CPT/HCPCS: 36415; 80053; 82947; 83735; 85025; 96361; 96374; 99283; J2405; J7030

== ENCOUNTER 2025-03-25 11:02 | Emergency (ER) | payer MEDICARE, MEDICAID ==
[2025-03-25] MEDS: Ketorolac 30 MG/ML SDV IM ONE (13:09)
[2025-03-25 20:59] VITALS: BP 121/65; PULSE 92
== END 2025-03-25 13:41 | disposition home or self-care (01) ==
LOC: MW.ED 11:02
DX: M47.816 Spondylosis without myelopathy or radiculopathy, lumbar region (principal); E78.00 Pure hypercholesterolemia, unspecified; E66.9 Obesity, unspecified; M62.838 Other muscle spasm; Z88.8 Allergy status to other drugs, medicaments and biological substances; Z79.899 Other long term (current) drug therapy; Z90.49 Acquired absence of other specified parts of digestive tract
CPT/HCPCS: 72100; 72100-26; 99283

== ENCOUNTER 2025-03-31 15:26 | Emergency (ER) | payer MEDICARE, MEDICAID ==
[2025-03-31 16:03] VITALS: BP 119/74; PULSE 81
== END 2025-03-31 16:40 | disposition home or self-care (01) ==
LOC: MW.ED 15:26
DX: Z02.89 Encounter for other administrative examinations (principal); E78.00 Pure hypercholesterolemia, unspecified; Z90.49 Acquired absence of other specified parts of digestive tract; Z88.8 Allergy status to other drugs, medicaments and biological substances; Z79.01 Long term (current) use of anticoagulants; Z79.899 Other long term (current) drug therapy
CPT/HCPCS: 82947; 99283; 99284

== ENCOUNTER 2025-04-15 12:16 | Emergency (ER) | payer MEDICARE, MEDICAID ==
[2025-04-15 12:37] VITALS: BP 102/69; PULSE 85
== END 2025-04-15 13:40 | disposition home or self-care (01) ==
LOC: MW.ED 12:16
DX: Z71.1 Person with feared health complaint in whom no diagnosis is made (principal); E78.00 Pure hypercholesterolemia, unspecified; Z75.3 Unavailability and inaccessibility of health-care facilities; Z88.8 Allergy status to other drugs, medicaments and biological substances; Z79.01 Long term (current) use of anticoagulants; Z79.899 Other long term (current) drug therapy
CPT/HCPCS: 93005; 93010; 99283; 99284

== ENCOUNTER 2025-05-26 14:12 | Emergency (ER) | payer MEDICARE, MEDICAID ==
[2025-05-26 16:01] VITALS: BP 99/55; PULSE 88
== END 2025-05-26 16:01 | disposition home or self-care (01) ==
LOC: MW.ED 14:12
DX: M17.12 Unilateral primary osteoarthritis, left knee (principal); E78.00 Pure hypercholesterolemia, unspecified; E66.9 Obesity, unspecified; Z68.33 Body mass index [BMI] 33.0-33.9, adult; Z90.49 Acquired absence of other specified parts of digestive tract; Z88.8 Allergy status to other drugs, medicaments and biological substances; Z79.01 Long term (current) use of anticoagulants; Z79.899 Other long term (current) drug therapy
CPT/HCPCS: 73562; 99283; A9270

== ENCOUNTER 2025-06-02 15:45 | Emergency (ER) | payer MEDICARE, MEDICAID ==
[2025-06-02 15:55] VITALS: BP 130/77; PULSE 100
== END 2025-06-02 16:29 | disposition home or self-care (01) ==
LOC: MW.ED 15:45
DX: S76.911A Strain of unspecified muscles, fascia and tendons at thigh level, right thigh, initial encounter (principal); S76.912A Strain of unspecified muscles, fascia and tendons at thigh level, left thigh, initial encounter; S56.912A Strain of unspecified muscles, fascia and tendons at forearm level, left arm, initial encounter; S56.911A Strain of unspecified muscles, fascia and tendons at forearm level, right arm, initial encounter; E78.00 Pure hypercholesterolemia, unspecified; E66.9 Obesity, unspecified; Z68.34 Body mass index [BMI] 34.0-34.9, adult; Z90.49 Acquired absence of other specified parts of digestive tract; Z88.8 Allergy status to other drugs, medicaments and biological substances; Z79.01 Long term (current) use of anticoagulants; Z79.899 Other long term (current) drug therapy; X58.XXXA Exposure to other specified factors, initial encounter
CPT/HCPCS: 82947; 99283

== ENCOUNTER 2025-06-23 14:22 | Emergency (ER) | payer MEDICARE, MEDICAID ==
[2025-06-23 14:53] VITALS: BP 106/66; PULSE 72
== END 2025-06-23 15:07 | disposition home or self-care (01) ==
LOC: MW.ED 14:22
DX: I10 Essential (primary) hypertension (principal); E78.00 Pure hypercholesterolemia, unspecified; E66.9 Obesity, unspecified; Z88.8 Allergy status to other drugs, medicaments and biological substances; Z79.899 Other long term (current) drug therapy; Z68.33 Body mass index [BMI] 33.0-33.9, adult
CPT/HCPCS: 82947; 99283

== ENCOUNTER 2025-07-27 11:26 | Emergency (ER) | payer MEDICARE, MEDICAID ==
[2025-07-27] MEDS ORDERED: Sodium Chloride 0.9% 10 ML Syringe FLUSH PRN (12:04)
[2025-07-27] MEDS ORDERED: Sodium Chloride 0.9% 2.5 ML Syringe FLUSH PRN (12:04)
[2025-07-27 12:24] LABS: BASOPHILS ABSOLUTE AUTO 0.01 K/uL (0.00-0.20); BASOPHILS PERCENT AUTO 0.2 % (0.0-1.0); EOSINOPHILS ABSOLUTE AUTO 0.05 K/uL (0.00-0.45); EOSINOPHILS PERCENT AUTO 0.8 % (0.0-6.0); IMMATURE GRAN ABSOLUTE AUTO 0.01 K/uL (0.00-0.05); IMMATURE GRAN PERCENT AUTO 0.2 % (0.0-0.4); LYMPHOCYTES ABSOLUTE AUTO 1.70 K/uL (1.00-4.80); LYMPHOCYTES PERCENT AUTO 28.4 % (24.0-44.0); MEAN PLATELET VOLUME 9.5 fL (9.4-12.4); MONOCYTES ABSOLUTE AUTO 0.69 K/uL (0.00-0.80); MONOCYTES PERCENT AUTO 11.5 % (0.0-8.0); NEUTROPHILS ABSOLUTE AUTO 3.53 K/uL (1.80-7.70); NEUTROPHILS PERCENT AUTO 58.9 % (41.0-71.0); NRBC ABSOLUTE 0.00 K/uL (0.00-0.02); NRBC PERCENT 0.0 /100WBC (0.0-0.2); PLATELET COUNT,PLT 206 K/uL (150-400); RED BLOOD CELL COUNT 4.95 M/uL (4.52-5.90); WHITE BLOOD CELL COUNT,WBC 5.99 K/uL (3.9-11.3)
[2025-07-27 12:45] LABS: A/G RATIO 1.0 (0.9-1.6); ALANINE AMINOTRANSFERASE,ALT 42 IU/L (14-63); ASPARTATE AMNIOTRANSFERASE,AST 37 IU/L (15-37); BILIRUBIN TOTAL 0.9 mg/dL (0.2-1.0); BLOOD UREA NITROGEN,BUN 18 mg/dL (7.0-18.0); CARBON DIOXIDE,CO2 29.1 mmol/L (21.0-32.0); CHLORIDE,CL 105 mmol/L (98-107); CREATININE 1.1 mg/dL (0.8-1.3); EST CRCL DRUG DOSING (CG) 74.65 mL/min; ETHANOL BLOOD MEDICAL <3 mg/dL; GLUCOSE RANDOM 106 mg/dL (74-106); POTASSIUM,K 3.8 mmol/L (3.5-5.1); PROTEIN TOTAL,TP 7.0 g/dL (6.4-8.2); SODIUM,NA 141 mmol/L (136-148)
[2025-07-27 12:50] LABS: ESTIMATED GFR 74 mL/min (>60)
[2025-07-27 13:34] LABS: APPEARANCE,URINE CLEAR; GLUCOSE,URINE NEGATIVE (NEGATIVE); OCCULT BLOOD,URINE NEGATIVE (NEGATIVE)
[2025-07-27 13:44] LABS: AMPHETAMINES SCREEN, URINE NEGATIVE (CUTOFF=500); BUPRENORPHINE SCREEN,URINE NEGATIVE (CUTOFF=10); METHADONE SCREEN, URINE NEGATIVE (CUTOFF=200); METHAMPHETAMINES SCREEN, URINE NEGATIVE (CUTOFF=500); OXYCODONE SCREEN,URINE NEGATIVE (CUT0FF=100); PCP SCREEN,URINE NEGATIVE (CUTOFF=25); THC SCREEN,URINE 20 NG/ML NEGATIVE (CUTOFF=50)
[2025-07-27 14:41] VITALS: BP 111/74; PULSE 80
== END 2025-07-27 14:57 | disposition home or self-care (01) ==
LOC: MW.ED 11:26
DX: M54.9 Dorsalgia, unspecified (principal); E78.00 Pure hypercholesterolemia, unspecified; E66.9 Obesity, unspecified; E86.0 Dehydration; Z79.899 Other long term (current) drug therapy; Z79.01 Long term (current) use of anticoagulants; Z88.8 Allergy status to other drugs, medicaments and biological substances; Z68.30 Body mass index [BMI] 30.0-30.9, adult
CPT/HCPCS: 36415; 80053; 80305; 80307; 81003; 83735; 85025; 96360; 99284; A9270; J7030